=== PATIENT | female | born 1980 | race Caucasian/White ===

== ENCOUNTER → 2017-09-22 | Outpatient (CLI) | payer OTHER ==
--- NOTE | 2017-09-22 14:45 | XR ---
Left foot HISTORY: Trauma and pain 3 views of the left foot Bone mineralization, joint spaces and alignment are maintained. Digits are flexed. There is a plantar calcaneal spur. There is spurring at the tibiotalar joint. Flattening of the distal third metatarsal head appears chronic, secondary osteophytic change suspected. Small ossific densities about the ankl e appear well-corticated and not felt likely to be acute. Soft tissue swelling is noted. IMPRESSION: No acute fracture or dislocation is evident.
== END | disposition home or self-care (01) ==
LOC: RADXRMAIN 11:21
PROVIDERS: ATTEND Family Medicine
DX: Z09 Encounter for follow-up examination after completed treatment for conditions other than malignant neoplasm (principal); Z87.311 Personal history of (healed) other pathological fracture

== ENCOUNTER → 2017-11-12 | Outpatient (CLI) | payer OTHER ==
[2017-11-13 14:49] LABS: Alt. alternata IgE Class CLASS 0; Alternaria alternata IgE <0.35 kU/L (<0.35); Asperg. fumagatus IgE <0.35 kU/L (<0.35); Asperg. fumagatus IgE Class CLASS 0; Candida albicans IgE Class CLASS 0; Clad herbarum IgE <0.35 kU/L (<0.35); Mucor racemosus IgE 0.48 kU/L (<0.35); Mucor racemosus IgE Class CLASS I; Penicillium chrysogenum IgE <0.35 kU/L (<0.35); Penicillium chrysogenum IgE Cl CLASS 0
== END | disposition home or self-care (01) ==
LOC: LABWHC1 14:19
PROVIDERS: ATTEND Family Medicine
DX: J30.89 Other allergic rhinitis (principal)
CPT/HCPCS: 36415; 86003

== ENCOUNTER → 2017-12-01 | Outpatient (CLI) | payer OTHER ==
[2017-12-01 16:50] LABS: Blood Urea Nitrogen 9 mg/dL (7-17)
--- NOTE | 2017-12-01 21:05 | CT ---
EXAMINATION TYPE: CT abdomen pelvis w con DATE OF EXAM: 12/01/2017 COMPARISON: NONE HISTORY: Ventral hernia CT DLP: 2380 mGycm CONTRAST: CT scan of the abdomen and pelvis is performed with Oral Contrast and with IV Contrast, patient injec jam with 100 mL of Isovue 300. FINDINGS: LUNG BASES-: No visible nodule. No infiltrate. LIVER/GB: There is moderate fatty hepatic infiltration and hepatomegaly. Cholecystectomy clips are in place. No space occupying hepatic lesion. Biliary tree is of normal caliber. PANCREAS: No inflammation. No distinct mass. SPLEEN: Splenomegaly measuring 13 cm craniocaudal dimension.. No lesion seen. ADRENALS: No nodule. No thickening. KIDNEYS/BLADDER: No hydronephrosis. No nephrolithiasis. No distinct renal mass. Urinary bladder g rossly unremarkable. BOWEL: Normal appendix. Normal bowel caliber. No inflammation. GENITAL ORGANS: No gross abnormality. LYMPH NODES: 1.1 cm right epicardial lymph node. Periportal adenopathy with lymph node mass measuring 2.7 x 1.4 cm. Para-aortic adenopathy measuring 1.3 cm anteriorly at the level of the renal veins. Ri ght inguinal lymph node measuring 1.3 cm. AORTA: No significant abnormality. OSSEOUS STRUCTURES: No significant abnormality is seen. OTHER: No ventral hernia identified.. IMPRESSION: 1. Nonspecific adenopathy. 2. Mild splenomegaly. 3. Hepatomegaly with underlying fatty hepatic infiltration.
== END | disposition home or self-care (01) ==
LOC: RADCTMAIN 16:22
PROVIDERS: ATTEND Surgery
DX: K76.0 Fatty (change of) liver, not elsewhere classified (principal); R16.2 Hepatomegaly with splenomegaly, not elsewhere classified
CPT/HCPCS: 82565; 84520; 74177; 36415; Q9967

== ENCOUNTER → 2017-12-09 | Day surgery (SDC) | payer OTHER ==
[2017-12-08 10:11] VITALS: BMI 46.5
[~2017-12-09] MED LIST: LACTATED RINGERS 1,000 ML IV SCH; LIDOCAINE 1% 20 ML VIAL (10MG/ML) FOR IV START INTRADERMA PRN; LIDOCAINE 1% INJ 10MG/ML (20 ML MDV) ONE; MIDAZOLAM 2 MG/2 ML VIAL IV PRN; PROPOFOL 10 MG/ML 20 ML VIAL IV ONE; SCOPOLAMINE 1.5MG/72HR PATCH TRANSDERM ONE; fentaNYL (PF) 50 MCG/ML 2 ML AMP ONE
[2017-12-09 11:02] VITALS: TEMP 97.1
[2017-12-09 11:05] LABS: Glucose,Whole Blood 110 mg/dL (75-99)
--- NOTE | 2017-12-09 11:18 | P.GSHP ---
History of Present Illness H&P Date: 12/09/17 Chief Complaint: GERD This a 36-year-old female who presents today for EGD. She's had issues with GERD. He is morbidly obese BMI 47. Past Medical History Past Medical History: Asthma, Chest Pain / Angina, Diabetes Mellitus, Fibromyalgia, GERD/Reflux, Hypertension, Osteoarthritis (OA), Pneumonia, Rheumatoid Arthritis (RA), Sleep Apnea/CPAP/BIPAP Additional Past Medical History / Comment(s): IBS,hiatal hernia,low heart rate, migraines, had "black outs" couple 2014,no cpap,hx cervical cancer, rhabdomyolysis History of Any Multi-Drug Resistant Organisms: None Reported Past Surgical History: Section, Cholecystectomy, Tubal Ligation, Uterine Ablation Additional Past Surgical History / Comment(s): d & c,c sect x3,cervix removed Past Anesthesia/Blood Transfusion Reactions: Motion Sickness, Postoperative Nausea & Vomiting (PONV) Smoking Status: Current some day smoker - Past Family History Mother Family Medical History: No Reported History Medications and Allergies Home Medications Medication Instructions Recorded Confirmed Type Omeprazole [PriLOSEC] 20 mg PO BID 12/26/13 12/08/17 History Lisinopril [Prinivil] 10 mg PO QAM 02/13/16 12/08/17 History glipiZIDE [Glucotrol] 5 mg PO AC-BID 02/13/16 12/09/17 History Beclomethasone Dipropionate [Qvar 2 puff INHALATION BID PRN 12/08/17 12/08/17 History 80 mcg] Dicyclomine HCl 10 mg PO QID 12/08/17 12/08/17 History FLUoxetine HCL [PROzac] 40 mg PO QAM 12/08/17 12/09/17 History Fluticasone Propionate [Flovent 2 puff INHALATION QID PRN 12/08/17 12/08/17 History Hfa 220MCG] Ibuprofen 600 mg PO BID 12/08/17 12/08/17 History [place] Carbonate 300 mg PO BID 12/08/17 12/08/17 History Ondansetron [Zofran] 4 mg PO Q8HR PRN 12/08/17 12/09/17 History Pregabalin [Lyrica] 75 mg PO BID 12/08/17 12/08/17 History Scopolamine 1.5MG/72Hr Patch 1 patch TRANSDERM Q72H 12/08/17 12/08/17 History [Transderm-Scop 1.5MG/72Hr Patch] oxyCODONE HCL/ACETAMINOPHEN 1 tab PO Q6HR PRN 12/08/17 12/09/17 History [Percocet 10-325 mg] Allergies Allergy/AdvReac Type Severity Reaction Status Date / Time trimethobenzamide HCl Allergy Dyspnea, Verified 12/09/17 10:54 [From [facility]] tongue swelled, hives adhesive tape Allergy tears skin Uncoded 12/09/17 10:54 Surgical - Exam Vital Signs Temp Pulse Resp BP Pulse Ox 97.1 F L 52 L 18 136/87 96 12/09/17 11:01 12/09/17 11:01 12/09/17 11:01 12/09/17 11:01 12/09/17 11:01 - General well developed, no distress - Eyes PERRL - ENT normal pinna - Neck no masses - Respiratory normal expansion - Cardiovascular Rhythm: regular - Abdomen Abdomen: soft, non tender Results - Labs Abnormal Lab Results - Last 24 Hours (Table) 12/09/17 Range/Units 11:03 POC Glucose (mg/dL) 110 H (75-99) mg/dL Assessment and Plan Assessment: GERD. We'll perform EGD.
[2017-12-09 11:31] VITALS: BP 137/65; PULSE 55; RESP 16
--- NOTE | 2017-12-09 11:32 | P.OP ---
Date of Procedure: 12/09/17 Preoperative Diagnosis: GERD Postoperative Diagnosis: Antral gastritis No evidence of hiatal hernia Procedure(s) Performed: EGD Anesthesia: MAC Surgeon: Alonso Kang Pathology: other (Antrum) Condition: stable Disposition: PACU Description of Procedure: The patient's placed on the endoscopy table lateral position. She received IV sedation. The gastroscope placed oropharynx passed in the esophagus and stomach. Scope then placed through the pylorus. The first and second portion of the duodenum appeared normal. Scope was then brought back the antrum and this was mildly inflamed. A biopsies was performed. The scope was then retroflexed and remainder of the stomach appeared Normal. There is no evidence of a hiatal hernia. The GE junction was at 40 cm. The distal esophagus Appeared normal. The proximal esophagus. Normal. Scope was withdrawn for patient.
== END | disposition home or self-care (01) ==
LOC: ORWHC2ENDO 09:36
PROVIDERS: ATTEND Surgery
DX: K29.50 Unspecified chronic gastritis without bleeding (principal); K21.9 Gastro-esophageal reflux disease without esophagitis; K58.9 Irritable bowel syndrome, unspecified; M79.7 Fibromyalgia; M06.9 Rheumatoid arthritis, unspecified; J45.909 Unspecified asthma, uncomplicated; I10 Essential (primary) hypertension; F17.200 Nicotine dependence, unspecified, uncomplicated; M19.90 Unspecified osteoarthritis, unspecified site; E66.01 Morbid (severe) obesity due to excess calories; E11.9 Type 2 diabetes mellitus without complications; Z68.42 Body mass index [BMI] 45.0-49.9, adult; Z79.84 Long term (current) use of oral hypoglycemic drugs; Z88.8 Allergy status to other drugs, medicaments and biological substances; Z91.048 Other nonmedicinal substance allergy status; Z79.1 Long term (current) use of non-steroidal anti-inflammatories (NSAID); Z79.899 Other long term (current) drug therapy; Z90.49 Acquired absence of other specified parts of digestive tract
CPT/HCPCS: 81025; 88305; 43239; J2001; J3010; J2704

== ENCOUNTER 2018-01-06 08:58 | Emergency (ER) | payer OTHER ==
[2018-01-06 09:27] VITALS: BP 152/67; PULSE 50; RESP 18; TEMP 97.9
--- NOTE | 2018-01-06 09:28 | XR ---
EXAMINATION TYPE: XR foot limited LT DATE OF EXAM: 01/06/2018 COMPARISON: NONE HISTORY: Pain TECHNIQUE: Three views are submitted. FINDINGS: The osseous structures are intact. There is no acute fracture or dislocation. Calcaneal spur not ed. Flattening of the head of the third metatarsal appears chronic be associated with previous trauma or chronic osteonecrosis. Arthropathy of the first. IMPRESSION: 1. No acute fracture or dislocation. If symptoms persist, follow-up exam in 7 to 10 days could be ob tained. 2. Chronic finding involving the head of the third metatarsal as discussed above.
--- NOTE | 2018-01-06 09:36 | ED ---
General Adult HPI - General Chief complaint: Skin/Abscess/Foreign Body Stated complaint: INFECTION ON KEFT FIIT Time Seen by Provider: 01/06/18 09:05 Source: patient, RN notes reviewed Mode of arrival: ambulatory Limitations: no limitations - History of Present Illness Initial comments: 37-year-old female presenting to the emergency room today with chief complaint of an injury to left foot. She admits that 2 days ago she scraped the top of the foot on a nail. She states that her tetanus is up-to-date. She's noticed increased redness and some swelling and pain today. Patient did bring her daughter here to the emergency room to be seen while she was being registered she decided to check herself in for this injury to left foot. She denies any other complaints or symptoms. - Related Data Home Medications Medication Instructions Recorded Confirmed Omeprazole [PriLOSEC] 20 mg PO BID 12/26/13 12/08/17 Lisinopril [Prinivil] 10 mg PO QAM 02/13/16 12/08/17 glipiZIDE [Glucotrol] 5 mg PO AC-BID 02/13/16 12/09/17 Beclomethasone Dipropionate [Qvar 2 puff INHALATION BID PRN 12/08/17 12/08/17 80 mcg] Dicyclomine HCl 10 mg PO QID 12/08/17 12/08/17 FLUoxetine HCL [PROzac] 40 mg PO QAM 12/08/17 12/09/17 Fluticasone Propionate [Flovent 2 puff INHALATION QID PRN 12/08/17 12/08/17 Hfa 220MCG] Ibuprofen 600 mg PO BID 12/08/17 12/08/17 [place] Carbonate 300 mg PO BID 12/08/17 12/08/17 Ondansetron [Zofran] 4 mg PO Q8HR PRN 12/08/17 12/09/17 Pregabalin [Lyrica] 75 mg PO BID 12/08/17 12/08/17 Scopolamine 1.5MG/72Hr Patch 1 patch TRANSDERM Q72H 12/08/17 12/08/17 [Transderm-Scop 1.5MG/72Hr Patch] oxyCODONE HCL/ACETAMINOPHEN 1 tab PO Q6HR PRN 12/08/17 12/09/17 [Percocet 10-325 mg] Previous Rx's Medication Instructions Recorded Cephalexin [Keflex] 500 mg PO Q12HR 10 Days cap 01/06/18 Allergies Allergy/AdvReac Type Severity Reaction Status Date / Time trimethobenzamide HCl Allergy Dyspnea, Verified 01/06/18 09:27 [From [facility]] tongue swelled, hives adhesive tape Allergy tears skin Uncoded 01/06/18 09:27 Review of Systems ROS Statement: Those systems with pertinent positive or pertinent negative responses have been documented in the HPI. ROS Other: All systems not noted in ROS Statement are negative. Past Medical History Past Medical History: Asthma, Chest Pain / Angina, Diabetes Mellitus, Fibromyalgia, GERD/Reflux, Hypertension, Osteoarthritis (OA), Pneumonia, Rheumatoid Arthritis (RA), Sleep Apnea/CPAP/BIPAP Additional Past Medical History / Comment(s): migraines, had "black outs" couple months ago, vomting and diarrhea, History of Any Multi-Drug Resistant Organisms: None Reported Past Surgical History: Section, Cholecystectomy, Tubal Ligation, Uterine Ablation Additional Past Surgical History / Comment(s): d & c Past Anesthesia/Blood Transfusion Reactions: Motion Sickness, Postoperative Nausea & Vomiting (PONV) Past Psychological History: Anxiety, Bipolar, Depression, Panic Disorder Smoking Status: Former smoker Past Alcohol Use History: None Reported Past Drug Use History: Marijuana General Exam - General Exam Comments Initial Comments: General: The patient is awake and alert, in no distress, and does not appear acutely ill. Neck: The neck is supple, there is no tenderness or JVD. Cardiovascular: There is a regular rate and rhythm. No murmur, rub or gallop is appreciated. Respiratory: Lungs are clear to auscultation, respirations are non-labored, breath sounds are equal. No wheezes, stridor, rales, or rhonchi. Musculoskeletal: Patient has full range of motion. Cap refill less than 2 seconds. Pedal pulse 2+. Sensation intact. Neurological: A&O x 3. CN II-XII intact, There are no obvious motor or sensory deficits. Coordination appears grossly intact. Speech is normal. Skin: Laceration site to the anterior aspect of the left foot of the skin superficially over the fourth metatarsal area. Full length measures approximately 2 cm. There is mild local redness surrounding. No lymphangitic streaking. Psychiatric: Normal mood and affect. Limitations: no limitations Course Vital Signs 01/06/18 09:25 Temperature 97.9 F Pulse Rate 50 L Respiratory 18 Rate Blood Pressure 152/67 O2 Sat by Pulse 96 Oximetry Medical Decision Making - Medical Decision Making Patient's x-ray reviewed and is negative for any acute abnormality. Patient's tetanus is up-to-date will be started on antibiotics cover for infection. Advised to watch the area return if symptoms increase or worsen. Disposition Clinical Impression: Cellulitis Disposition: HOME SELF-CARE Condition: Good Instructions: Cellulitis (ED) Additional Instructions: Please use medication as discussed. Please follow-up with family doctor in the next 2 days of symptoms have not improved. Please return to emergency room if the symptoms increase or worsen or for any other concerns. Prescriptions: Cephalexin [Keflex] 500 mg PO Q12HR 10 Days cap Is patient prescribed a controlled substance at d/c from ED?: No Referrals: Jonah Johnson MD [Primary Care Provider] - 1-2 days Time of Disposition: 09:33
== END 2018-01-06 10:18 | disposition home or self-care (01) ==
LOC: EC 08:58
DX: L03.116 Cellulitis of left lower limb (principal); J45.909 Unspecified asthma, uncomplicated; E11.9 Type 2 diabetes mellitus without complications; M79.7 Fibromyalgia; K21.9 Gastro-esophageal reflux disease without esophagitis; I10 Essential (primary) hypertension; M19.90 Unspecified osteoarthritis, unspecified site; M06.9 Rheumatoid arthritis, unspecified; G47.30 Sleep apnea, unspecified; Z99.89 Dependence on other enabling machines and devices; F31.9 Bipolar disorder, unspecified; F41.0 Panic disorder [episodic paroxysmal anxiety]; Z87.891 Personal history of nicotine dependence; Z79.84 Long term (current) use of oral hypoglycemic drugs; Z79.1 Long term (current) use of non-steroidal anti-inflammatories (NSAID); Z79.899 Other long term (current) drug therapy; Z88.8 Allergy status to other drugs, medicaments and biological substances; Z91.048 Other nonmedicinal substance allergy status
CPT/HCPCS: 99283

== ENCOUNTER → 2019-04-06 | Outpatient (CLI) | payer OTHER ==
[2019-04-06 18:08] LABS: HIV 1 AB Non-Reactive (Non-Reactive); HIV AB P24 Non-Reactive (Non-Reactive); HIV P24 AG Non-Reactive (Non-Reactive)
== END | disposition home or self-care (01) ==
LOC: LABWHC1 09:33
PROVIDERS: ATTEND Internal Medicine Infectious Disease
DX: Z20.6 Contact with and (suspected) exposure to human immunodeficiency virus [HIV] (principal)
CPT/HCPCS: 36415; 87390

== ENCOUNTER → 2019-09-02 | Outpatient (CLI) | payer OTHER ==
[2019-09-02 19:02] LABS: T4, Free (Free Thyroxine) 1.3 ng/dL (0.80-1.80)
[2019-09-02 20:29] LABS: Hemoglobin A1C 8.8 % (4.0-6.0)
== END | disposition home or self-care (01) ==
LOC: LABWHC1 12:06
PROVIDERS: ATTEND Family Medicine
DX: I10 Essential (primary) hypertension (principal); E11.9 Type 2 diabetes mellitus without complications
CPT/HCPCS: 36415; 83036; 84439; 84443; 84481

== ENCOUNTER 2020-03-13 06:36 | Emergency (ER) | payer OTHER ==
[2020-03-13] MEDS ORDERED: ONDANSETRON 4 MG/2 ML VIAL IVP STA (06:49)
[2020-03-13] MEDS ORDERED: KETOROLAC 30 MG/ML 1 ML VIAL IVP STA (06:49)
[2020-03-13] MEDS ORDERED: MORPHINE SULFATE 4 MG/ML SYRINGE IV STA (06:49)
[2020-03-13] MEDS ORDERED: SODIUM CHLORIDE 0.9% 1,000 ML IV STA ×2 (06:49)
[2020-03-13] MEDS ORDERED: PANTOPRAZOLE 40 MG/10 ML VIAL IVP STA (06:49)
[2020-03-13 06:51] VITALS: RESP 18; TEMP 98.3
--- NOTE | 2020-03-13 06:51 | ED ---
Abdominal Pain HPI - General Source: patient, RN notes reviewed, old records reviewed Mode of arrival: ambulatory Limitations: no limitations <Mei Mcdonough - Last Filed: 03/13/20 21:46> <Lea Lagso - Last Filed: 03/15/20 00:53> - General Chief Complaint: Abdominal Pain Stated Complaint: Abd pain, vomiting Time Seen by Provider: 03/13/20 06:43 - History of Present Illness Initial Comments: Patient is a 39-year-old female who presents the emergency department today for evaluation for concern for centralized abdominal pain. She reports symptoms started yesterday evening after eating a small pork chop and hot dog. She states that seemed like nothing sits well in her stomach. She reports that around 3:00 this morning she woke up with severe pain and nausea, and has swelling on left side of abdomen. She states she vomited all food she's ate for the past 2 days as it is not digesting. She did report she had a bowel movement today which was normal and formed. Denies any bloody stools. Denies a ny fevers or chills. Denies any chest pain shortness of breath. She does report the pain seems to be central midabdomen with some radiation towards her back. (Mei Mcdonough) - Related Data Home Medications Medication Instructions Recorded Confirmed Lisinopril [Prinivil] 10 mg PO QAM 02/13/16 01/06/18 Beclomethasone Dipropionate [Qvar 2 puff INHALATION BID PRN 12/08/17 01/06/18 80 mcg] Dicyclomine HCl 10 mg PO QID 12/08/17 01/06/18 Ibuprofen 600 mg PO BID 12/08/17 01/06/18 Pregabalin [Lyrica] 75 mg PO BID 12/08/17 01/06/18 Scopolamine 1.5MG/72Hr Patch 1 patch TRANSDERM Q72H 12/08/17 01/06/18 [Transderm-Scop 1.5MG/72Hr Patch] oxyCODONE HCL/ACETAMINOPHEN 1 tab PO Q6HR PRN 12/08/17 01/06/18 [Percocet 10-325 mg] Losartan [Cozaar] 50 mg PO DAILY 01/06/18 01/06/18 Nitrofurantoin Monohyd/M-Cryst 100 mg PO Q12HR 01/06/18 01/06/18 [Macrobid] Previous Rx's Medication Instructions Recorded Cephalexin [Keflex] 500 mg PO Q12HR 10 Days cap 01/06/18 Omeprazole [PriLOSEC] 40 mg PO DAILY #30 cap 03/13/20 Ondansetron [Zofran] 4 mg PO Q8HR PRN #8 tab 03/13/20 Allergies Allergy/AdvReac Type Severity Reaction Status Date / Time latex Allergy Itching Verified 01/06/18 10:04 trimethobenzamide HCl Allergy Dyspnea, Verified 01/06/18 09:27 [From [facility]] tongue swelled, hives adhesive tape Allergy tears skin Uncoded 01/06/18 09:27 Review of Systems ROS Other: All systems not noted in ROS Statement are negative. <Mei Mcdonough - Last Filed: 03/13/20 21:46> ROS Other: All systems not noted in ROS Statement are negative. <Lea Lagos - Last Filed: 03/15/20 00:53> ROS Statement: Those systems with pertinent positive or pertinent negative responses have been documented in the HPI. Past Medical History Past Medical History: Asthma, Chest Pain / Angina, Diabetes Mellitus, Fibromyalgia, GERD/Reflux, Hypertension, Osteoarthritis (OA), Pneumonia, Rh eumatoid Arthritis (RA), Sleep Apnea/CPAP/BIPAP Additional Past Medical History / Comment(s): migraines, had "black outs" couple months ago, vomting and diarrhea, History of Any Multi-Drug Resistant Organisms: None Reported Past Surgical History: Section, Cholecystectomy, Tubal Ligation, Uterine Ablation Additional Past Surgical History / Comment(s): d & c Past Anesthesia/Blood Transfusion Reactions: Motion Sickness, Postoperative Nausea & Vomiting (PONV) Past Psychological History: Anxiety, Bipolar, Depression, Panic Disorder Smoking Status: Current every day smoker Past Alcohol Use History: None Reported Past Drug Use History: Marijuana <Mei Mcdonough - Last Filed: 03/13/20 21:46> General Exam Limitations: no limitations General appearance: alert, in no apparent distress Head exam: Present: atraumatic, normocephalic, normal inspection Eye exam: Present: normal appearance, PERRL, EOMI. Absent: scleral icterus, conjunctival injection, periorbital swelling ENT exam: Present: normal exam, mucous membranes moist Neck exam: Present: normal inspection. Absent: tenderness, meningismus, lymphadenopathy Respiratory exam: Present: normal lung sounds bilaterally. Absent: respiratory distress, wheezes, rales, rhonchi, stridor Cardiovascular Exam: Present: regular rate, normal rhythm, normal heart sounds. Absent: systolic murmur, diastolic murmur, rubs, gallop, clicks GI/Abdominal exam: Present: soft, normal bowel sounds. Absent: distended, tenderness, guarding, rebound, rigid Extremities exam: Present: normal inspection, full ROM, normal capillary refill. Absent: tenderness, pedal edema, joint swelling, calf tenderness Back exam: Present: normal inspection Neurological exam: Present: alert Psychiatric exam: Present: normal affect, normal mood Skin exam: Present: warm, dry, intact, normal color. Absent: rash <Mei Mcdonough - Last Filed: 03/13/20 21:46> - General Exam Comments Initial Comments: 39 year old female, no distress. (Mei Mcdonough) Course <Mei Mcdonough - Last Filed: 03/13/20 21:46> Vital Signs 03/13/20 03/13/20 06:41 08:59 Temperature 98.3 F 98.3 F Pulse Rate 58 L 67 Respiratory 18 18 Rate Blood Pressure 156/87 150/91 O2 Sat by Pulse 95 98 Oximetry - Reevaluation(s) Reevaluation #1: 03/13/20 07:16 I discussed Patient elevated blood sugar 300. She states that she is a known diabetic. She takes glipizide and Ozembic. (Mei Mcdonough) Medical Decision Making - Lab Data Result diagrams: 03/13/20 06:54 03/13/20 06:54 - Radiology Data Radiology results: report reviewed <Mei Mcdonough - Last Filed: 03/13/20 21:46> - Lab Data Result diagrams: 03/13/20 06:54 03/13/20 06:54 <Lea Lagos - Last Filed: 03/15/20 00:53> - Medical Decision Making 39 year old female presents today for nausea, vomiting and left abdominal pain. Patient labs were reviewed and unremarkable. Due to persistent pain, CT completed. Patient CT shows no acute abnormality. She discused frequent belching and discussed possible upper endoscopy adn testing for Hpylori. Discussed close PCP follow up. Discussed with Dr. Johnson. (Mei Mcdonough) I was available for consultation in the emergency department. The history and physical exam were done by the midlevel provider. I was consulted for this patients care. I reviewed the case with the midlevel provider and based on their presentation of the patient, I agree with the assessment, medical decision making and plan of care as documented. Chart was dictated using Vigo dictation software. Attempts were made to correct any dictation errors however some typographical errors may persist. Patient was seen during a national state of emergency due to the Covid-19 pandemic. (Lea Lagos) - Lab Data Lab Results 03/13/20 03/13/20 03/13/20 Range/Units 06:54 06:54 06:54 WBC 12.0 H (3.8-10.6) k/uL RBC 4.89 (3.80-5.40) m/uL Hgb 15.3 (11.4-16.0) gm/dL Hct 46.2 H (34.0-46.0) % MCV 94.6 (80.0-100.0) fL MCH 31.3 (25.0-35.0) pg MCHC 33.1 (31.0-37.0) g/dL RDW 12.6 (11.5-15.5) % Plt Count 304 (150-450) k/uL Neutrophils % 64 % Lymphocytes % 26 % Monocytes % 5 % Eosinophils % 3 % Basophils % 1 % Neutrophils # 7.7 (1.3-7.7) k/uL Lymphocytes # 3.1 (1.0-4.8) k/uL Monocytes # 0.6 (0-1.0) k/uL Eosinophils # 0.4 (0-0.7) k/uL Basophils # 0.1 (0-0.2) k/uL PT 9.5 (9.0-12.0) sec INR 0.9 (<1.2) APTT 23.7 (22.0-30.0) sec Sodium 136 L (137-145) mmol/L Potassium 3.8 (3.5-5.1) mmol/L Chloride 101 (98-107) mmol/L Carbon Dioxide 26 (22-30) mmol/L Anion Gap 9 mmol/L BUN 7 (7-17) mg/dL Creatinine 0.60 (0.52-1.04) mg/dL Est GFR (CKD-EPI)AfAm >90 (>60 ml/min/1.73 sqM) Est GFR (CKD-EPI)NonAf >90 (>60 ml/min/1.73 sqM) Glucose 300 H (74-99) mg/dL Plasma Lactic Acid Darion (0.7-2.0) mmol/L Calcium 9.6 (8.4-10.2) mg/dL Total Bilirubin 0.4 (0.2-1.3) mg/dL AST 46 H (14-36) U/L ALT 59 H (4-34) U/L Alkaline Phosphatase 78 (38-126) U/L Total Protein 7.1 (6.3-8.2) g/dL Albumin 4.0 (3.5-5.0) g/dL Amylase 40 (30-110) U/L Lipase 151 (23-300) U/L Urine Color Urine Appearance (Clear) Urine pH (5.0-8.0) Ur Specific [place] (1.001-1.035) Urine Protein (Negative) Urine Glucose (UA) (Negative) Urine Ketones (Negative) Urine Blood (Negative) Urine Nitrite (Negative) Urine Bilirubin (Negative) Urine Urobilinogen (<2.0) mg/dL Ur Leukocyte Esterase (Negative) 03/13/20 03/13/20 Range/Units 06:54 08:23 WBC (3.8-10.6) k/uL RBC (3.80-5.40) m/uL Hgb (11.4-16.0) gm/dL Hct (34.0-46.0) % MCV (80.0-100.0) fL MCH (25.0-35.0) pg MCHC (31.0-37.0) g/dL RDW (11.5-15.5) % Plt Count (150-450) k/uL Neutrophils % % Lymphocytes % % Monocytes % % Eosinophils % % Basophils % % Neutrophils # (1.3-7.7) k/uL Lymphocytes # (1.0-4.8) k/uL Monocytes # (0-1.0) k/uL Eosinophils # (0-0.7) k/uL Basophils # (0-0.2) k/uL PT (9.0-12.0) sec INR (<1.2) APTT (22.0-30.0) sec Sodium (137-145) mmol/L Potassium (3.5-5.1) mmol/L Chloride (98-107) mmol/L Carbon Dioxide (22-30) mmol/L Anion Gap mmol/L BUN (7-17) mg/dL Creatinine (0.52-1.04) mg/dL Est GFR (CKD-EPI)AfAm (>60 ml/min/1.73 sqM) Est GFR (CKD-EPI)NonAf (>60 ml/min/1.73 sqM) Glucose (74-99) mg/dL Plasma Lactic Acid [place] 1.9 (0.7-2.0) mmol/L Calcium (8.4-10.2) mg/dL Total Bilirubin (0.2-1.3) mg/dL AST (14-36) U/L ALT (4-34) U/L Alkaline Phosphatase (38-126) U/L Total Protein (6.3-8.2) g/dL Albumin (3.5-5.0) g/dL Amylase (30-110) U/L Lipase (23-300) U/L Urine Color Yellow Urine Appearance Clear (Clear) Urine pH 6.0 (5.0-8.0) Ur Specific [place] 1.028 (1.001-1.035) Urine Protein Trace H (Negative) Urine Glucose (UA) 4+ H (Negative) Urine Ketones Trace H (Negative) Urine Blood Negative (Negative) Urine Nitrite Negative (Negative) Urine Bilirubin Negative (Negative) Urine Urobilinogen <2.0 (<2.0) mg/dL Ur Leukocyte Esterase Negative (Negative) - Radiology Data Negative CT abdomen and pelvis. KUB shows normal bowel gas pattern. (Mei Mcdonough) Disposition Is patient prescribed a controlled substance at d/c from ED?: No Time of Disposition: 10:03 <Mei Mcdonough - Last Filed: 03/13/20 21:46> <Lea Lagos - Last Filed: 03/15/20 00:53> Clinical Impression: Acute vomiting, Abdominal pain Disposition: HOME SELF-CARE Condition: Good Additional Instructions: Pt is to follow up with PCP and retunr to ED if any alarming signs or symptoms occur. Prescriptions: Omeprazole [PriLOSEC] 40 mg PO DAILY #30 cap Ondansetron [Zofran] 4 mg PO Q8HR PRN #8 tab PRN Reason: Nausea And Vomiting Referrals: Jonah Johnson MD [Primary Care Provider] - 1-2 days
[2020-03-13 07:05] LABS: Basophils # (A) 0.1 k/uL (0-0.2); Basophils % (A) 1 %; Eosinophils # (A) 0.4 k/uL (0-0.7); Eosinophils % (A) 3 %; HCT 46.2 % (34.0-46.0); HGB 15.3 gm/dL (11.4-16.0); Lymphocytes # (A) 3.1 k/uL (1.0-4.8); Lymphocytes % (A) 26 %; MCH 31.3 pg (25.0-35.0); MCHC 33.1 g/dL (31.0-37.0); MCV 94.6 fL (80.0-100.0); Mean Platelet Volume 8.1; Monocytes # (A) 0.6 k/uL (0-1.0); Monocytes % (A) 5 %; Neutrophils # (A) 7.7 k/uL (1.3-7.7); Neutrophils % (A) 64 %; Platelet Count 304 k/uL (150-450); RBC 4.89 m/uL (3.80-5.40); RDW 12.6 % (11.5-15.5)
[2020-03-13 07:13] LABS: ALT 59 U/L (4-34); AST 46 U/L (14-36); African American GFR (CKD) >90 (>60 ml/min/1.73 sqM); Alkaline Phosphatase 78 U/L (38-126); Amylase 40 U/L (30-110); Anion Gap 9 mmol/L; Blood Urea Nitrogen 7 mg/dL (7-17); Calcium 9.6 mg/dL (8.4-10.2); Carbon Dioxide 26 mmol/L (22-30); Chloride 101 mmol/L (98-107); Glucose 300 mg/dL (74-99); Non-African American GFR(CKD) >90 (>60 ml/min/1.73 sqM); Potassium 3.8 mmol/L (3.5-5.1); Sodium 136 mmol/L (137-145); Total Bilirubin 0.4 mg/dL (0.2-1.3); Total Protein 7.1 g/dL (6.3-8.2)
[2020-03-13 07:18] LABS: INR 0.9 (<1.2); Partial Thromboplastin Time 23.7 sec (22.0-30.0); Prothrombin Time 9.5 sec (9.0-12.0)
--- NOTE | 2020-03-13 08:26 | XR ---
EB HISTORY: Abdominal pain, bloating and vomiting Frontal KUB submitted on 2 images and correlated to prior KUB 02/13/2016 Surgical clips again noted in the right upper quadrant. Lung bases are clear. There is no evident pne umoperitoneum or bowel obstruction, some air-filled loops of bowel present in the left lower quadrant , air fluid levels noted without bowel distention. No pathologic calcification evident. Bones are unc hanged. There is a spinal curvature, degenerative disc changes are present. IMPRESSION: Correlate for ileus, enteritis.
[2020-03-13 08:42] LABS: Appearance,Urine Clear (Clear); Bilirubin,Urine Negative (Negative); Blood,Urine Negative (Negative); Color,Urine Yellow; Glucose,Urine (UA) 4+ (Negative); Ketones,Urine Trace (Negative); Leukocyte Esterase,Urine Negative (Negative); Nitrite,Urine Negative (Negative); Protein,Urine Trace (Negative); Specific Gravity,Urine 1.028 (1.001-1.035); Urobilinogen,Urine <2.0 mg/dL (<2.0)
[2020-03-13 09:00] VITALS: BP 150/91; PULSE 67
--- NOTE | 2020-03-13 09:00 | CT ---
EXAMINATION TYPE: CT abdomen pelvis w con DATE OF EXAM: 03/13/2020 HISTORY: LLQ pain CT DLP: 2646.4mGycm Automated Exposure Control for Dose Reduction was Utilized. CONTRAST: CT scan of the abdomen and pelvis is performed without oral but with IV Contrast, patient injected wi th 100 mL of Isovue 300. COMPARISON: CT abdomen and pelvis December 01, 2017. FINDINGS: LUNG BASES: No significant abnormality is appreciated. LIVER/GB: Cardiomegaly with prominent right hepatic lobe redemonstrated. Liver remains markedly hypod ense consistent with diffuse fatty infiltration. Cholecystectomy clips are redemonstrated. PANCREAS: No significant abnormality is seen. SPLEEN: Stable mild splenomegaly at 13.1 cm long axis coronal image 79. ADRENALS: No significant abnormality is seen. KIDNEYS: Symmetric cortical medullary uptake and excretion without hydronephrosis seen bilaterally. P oorly distended bladder BOWEL: Slightly suboptimal evaluation without enteric contrast. Stomach not greatly distended and summer s suboptimally evaluated. No suspicious small or large bowel dilatation. Normal-appearing appendix ex tends posteriorly and medially from base of cecum in the right lower quadrant. Small bowel feces sign and distal ileal loops consistent with delayed passage of ingested material to colonic level. No sig nificant colonic diverticulosis or CT evidence for acute diverticulitis. UTERUS/ADNEXA: Anteverted uterus. Normal size ovaries. No suspicious adnexal lesions. LYMPH NODES: No new or residual greater than 1cm abdominal or pelvic lymph nodes are appreciated. OSSEOUS STRUCTURES: Straightening of spine with moderate disc space narrowing and vacuum disc phenome non L4-L5 level. Mild to moderate multilevel anterior and lateral spurring. OTHER: No significant additional abnormality is seen. IMPRESSION: No significant new or acute finding is seen to account for patient's clinical symptoms.
== END 2020-03-13 10:14 | disposition home or self-care (01) ==
LOC: EC 06:36
DX: R11.2 Nausea with vomiting, unspecified (principal); R10.9 Unspecified abdominal pain; I10 Essential (primary) hypertension; G47.30 Sleep apnea, unspecified; J45.909 Unspecified asthma, uncomplicated; M19.90 Unspecified osteoarthritis, unspecified site; M06.9 Rheumatoid arthritis, unspecified; M79.7 Fibromyalgia; F41.9 Anxiety disorder, unspecified; F17.200 Nicotine dependence, unspecified, uncomplicated; Z79.1 Long term (current) use of non-steroidal anti-inflammatories (NSAID); Z79.899 Other long term (current) drug therapy; Z91.040 Latex allergy status; Z88.8 Allergy status to other drugs, medicaments and biological substances; Z91.048 Other nonmedicinal substance allergy status; Z98.51 Tubal ligation status; Z90.49 Acquired absence of other specified parts of digestive tract; Z99.89 Dependence on other enabling machines and devices
CPT/HCPCS: 36415; 80053; 82150; 83605; 83690; 85025; 85610; 85730; 81003; 74018; 74177; 99285; 96374; 96375 ×3; 96361 ×3; J2270; J2405; J1885; C9113; Q9967

== ENCOUNTER 2020-03-27 11:43 | Emergency (ER) | payer OTHER ==
[2020-03-27 11:51] VITALS: BP 174/90; PULSE 76; RESP 18; TEMP 98.3
[2020-03-27 12:56] LABS: Basophils # (A) 0.1 k/uL (0-0.2); Basophils % (A) 1 %; Eosinophils # (A) 0.3 k/uL (0-0.7); Eosinophils % (A) 2 %; HCT 48.4 % (34.0-46.0); HGB 15.8 gm/dL (11.4-16.0); Lymphocytes # (A) 3.5 k/uL (1.0-4.8); Lymphocytes % (A) 27 %; MCH 30.8 pg (25.0-35.0); MCHC 32.7 g/dL (31.0-37.0); MCV 94.2 fL (80.0-100.0); Mean Platelet Volume 7.6; Monocytes # (A) 0.6 k/uL (0-1.0); Monocytes % (A) 5 %; Neutrophils # (A) 8.2 k/uL (1.3-7.7); Neutrophils % (A) 64 %; Platelet Count 311 k/uL (150-450); RBC 5.13 m/uL (3.80-5.40); RDW 13.1 % (11.5-15.5); WBC 12.8 k/uL (3.8-10.6)
--- NOTE | 2020-03-27 13:19 | XR ---
EXAMINATION TYPE: XR shoulder complete RT DATE OF EXAM: 03/27/2020 CLINICAL HISTORY: pain TECHNIQUE: Three views of the right shoulder are obtained. COMPARISON: None FINDINGS: There is no acute fracture/dislocation evident. The acromioclavicular and glenohumeral lionel int spaces appear within normal limits. The visualized ribs are intact and unremarkable. IMPRESSION: 1. There is no acute fracture or dislocation. ICD 10 NO FRACTURE, INITIAL EVALUATION
--- NOTE | 2020-03-27 13:28 | XR ---
EXAMINATION TYPE: XR elbow complete RT DATE OF EXAM: 03/27/2020 CLINICAL HISTORY: Pain. TECHNIQUE: Frontal, lateral and oblique images of the right elbow are obtained. COMPARISON: None FINDINGS: There is no acute fracture/dislocation evident in the right elbow. No abnormal fat pad si gns are seen. Ngnn-vl-tzfutyif ulnohumeral spurring. The overlying soft tissue appears unremarkable. IMPRESSION: As above.
--- NOTE | 2020-03-27 13:37 | XR ---
EXAMINATION TYPE: XR wrist complete RT DATE OF EXAM: 03/27/2020 CLINICAL HISTORY: pain TECHNIQUE: Frontal, lateral and oblique images of the right wrist are obtained. COMPARISON: None. FINDINGS: There is no acute fracture/dislocation evident. The joint spaces appear within normal limits. The o verlying soft tissue appears unremarkable. IMPRESSION: There is no acute fracture or dislocation seen. ICD 10 NO FRACTURE, INITIAL EVALUATION
[2020-03-27 13:38] LABS: Sodium 135 mmol/L (137-145)
[2020-03-27 13:41] LABS: ALT 68 U/L (4-34); AST 55 U/L (14-36); African American GFR (CKD) >90 (>60 ml/min/1.73 sqM); Albumin 4.4 g/dL (3.5-5.0); Alkaline Phosphatase 84 U/L (38-126); Anion Gap 12 mmol/L; Blood Urea Nitrogen 9 mg/dL (7-17); C Reactive Protein 34.2 mg/L (<10.0); Calcium 9.8 mg/dL (8.4-10.2); Carbon Dioxide 24 mmol/L (22-30); Chloride 99 mmol/L (98-107); Creatine Kinase 71 U/L (30-135); Glucose 229 mg/dL (74-99); Non-African American GFR(CKD) >90 (>60 ml/min/1.73 sqM); Potassium 4.3 mmol/L (3.5-5.1); Total Bilirubin 0.5 mg/dL (0.2-1.3); Total Protein 7.7 g/dL (6.3-8.2)
[2020-03-27 13:49] LABS: Erythrocyte Sedimentation Rate 19 mm/hr (0-20)
--- NOTE | 2020-03-27 14:11 | ED ---
Extremity Problem HPI - General Chief complaint: Extremity Problem,Nontraumatic Stated complaint: Joint pain Right side Source: family Mode of arrival: ambulatory Limitations: no limitations - History of Present Illness Initial comments: Patient is a 39 year old female who presents to the emergency department with reported right upper extremity pain. Patient states that over the past week she has had worsening pain in her elbow and right thumb. She is right-hand dominant. States majority of the pain starts over the lateral aspect of the right thumb and radiates up to her elbow. Pain is worse with movement and better with rest. Denies any swelling, redness or ecchymosis. No trauma. Denies any weakness, numbness or tingling into the hand. Denies any fevers or chills. Denies any shoulder chest pain. No headaches or visual changes. She reports 2 previous diffuse muscle cramping and was found to be in idiopathic rhabdo. This is a concern of hers. Patient went to [facility] this morning however did not have any imaging or lab studies performed. She then went over to an urgent care who referred her to the hospital stating that she would need both of these. No alleviating, precipitating or modifying factors - Related Data Home Medications Medication Instructions Recorded Confirmed Lisinopril [Prinivil] 10 mg PO QAM 02/13/16 01/06/18 Beclomethasone Dipropionate [Qvar 2 puff INHALATION BID PRN 12/08/17 01/06/18 80 mcg] Dicyclomine HCl 10 mg PO QID 12/08/17 01/06/18 Ibuprofen 600 mg PO BID 12/08/17 01/06/18 Pregabalin [Lyrica] 75 mg PO BID 12/08/17 01/06/18 Scopolamine 1.5MG/72Hr Patch 1 patch TRANSDERM Q72H 12/08/17 01/06/18 [Transderm-Scop 1.5MG/72Hr Patch] oxyCODONE HCL/ACETAMINOPHEN 1 tab PO Q6HR PRN 12/08/17 01/06/18 [Percocet 10-325 mg] Losartan [Cozaar] 50 mg PO DAILY 01/06/18 01/06/18 Nitrofurantoin Monohyd/M-Cryst 100 mg PO Q12HR 01/06/18 01/06/18 [Macrobid] Previous Rx's Medication Instructions Recorded Cephalexin [Keflex] 500 mg PO Q12HR 10 Days cap 01/06/18 Omeprazole [PriLOSEC] 40 mg PO DAILY #30 cap 03/13/20 Ondansetron [Zofran] 4 mg PO Q8HR PRN #8 tab 03/13/20 Ibuprofen [Motrin] 600 mg PO Q8HR PRN #30 tab 03/27/20 Allergies Allergy/AdvReac Type Severity Reaction Status Date / Time latex Allergy Itching Verified 01/06/18 10:04 trimethobenzamide HCl Allergy Dyspnea, Verified 01/06/18 09:27 [From Tigan] tongue swelled, hives adhesive tape Allergy tears skin Uncoded 01/06/18 09:27 Review of Systems ROS Statement: Those systems with pertinent positive or pertinent negative responses have been documented in the HPI. ROS Other: All systems not noted in ROS Statement are negative. Past Medical History Past Medical History: Asthma, Chest Pain / Angina, Diabetes Mellitus, Fibromyalgia, GERD/Reflux, Hypertension, Osteoarthritis (OA), Pneumonia, Rheumatoid Arthritis (RA), Sleep Apnea/CPAP/BIPAP Additional Past Medical History / Comment(s): migraines, had "black outs" couple months ago, vomting and diarrhea, History of Any Multi-Drug Resistant Organisms: None Reported Past Surgical History: Section, Cholecystectomy, Tubal Ligation, Uterine Ablation Additional Past Surgical History / Comment(s): d & c Past Anesthesia/Blood Transfusion Reactions: Motion Sickness, Postoperative Nausea & Vomiting (PONV) Past Psychological History: Anxiety, Bipolar, Depression, Panic Disorder Smoking Status: Current every day smoker Past Alcohol Use History: None Reported Past Drug Use History: Marijuana General Exam Limitations: no limitations Course Vital Signs 03/27/20 11:48 Temperature 98.3 F Pulse Rate 76 Respiratory 18 Rate Blood Pressure 174/90 O2 Sat by Pulse 99 Oximetry Medical Decision Making - Medical Decision Making Upon arrival the patient is placed in room 8. A through history and physical exam was performed. Patient is intact sensation, range of motion. She does have tenderness to palpation of the lateral aspect of the thumb. Because this is the patient's third healthcare facility today, laboratory studies and imaging performed. Patient does have a mild elevation white blood cell count of 12.8. Glucose 229. C-reactive protein 34.2. X-ray of the wrist, elbow and shoulder demonstrate no acute fractures. Elbow x-ray does demonstrate mild to moderate ulnohumeral spurring. I discussed diagnosis, differential and treatment options. Recommend follow-up with her primary care physician for evaluation of possible other etiologies of joint pain. Patient will be prescribed Motrin for pain control. I also wrote the patient for a splint for her wrist. Where it as directed. She is also given follow-up information for the orthopedic on-call. Return to the emergency room for any new or worsening symptoms per patient was in agreement with the plan to discharge home to admission - Lab Data Result diagrams: 03/27/20 12:34 03/27/20 12:34 Lab Results 03/27/20 03/27/20 Range/Units 12:34 12:34 WBC 12.8 H (3.8-10.6) k/uL RBC 5.13 (3.80-5.40) m/uL Hgb 15.8 (11.4-16.0) gm/dL Hct 48.4 H (34.0-46.0) % MCV 94.2 (80.0-100.0) fL MCH 30.8 (25.0-35.0) pg MCHC 32.7 (31.0-37.0) g/dL RDW 13.1 (11.5-15.5) % Plt Count 311 (150-450) k/uL Neutrophils % 64 % Lymphocytes % 27 % Monocytes % 5 % Eosinophils % 2 % Basophils % 1 % Neutrophils # 8.2 H (1.3-7.7) k/uL Lymphocytes # 3.5 (1.0-4.8) k/uL Monocytes # 0.6 (0-1.0) k/uL Eosinophils # 0.3 (0-0.7) k/uL Basophils # 0.1 (0-0.2) k/uL ESR 19 (0-20) mm/hr Sodium 135 L (137-145) mmol/L Potassium 4.3 (3.5-5.1) mmol/L Chloride 99 (98-107) mmol/L Carbon Dioxide 24 (22-30) mmol/L Anion Gap 12 mmol/L BUN 9 (7-17) mg/dL Creatinine 0.51 L (0.52-1.04) mg/dL Est GFR (CKD-EPI)AfAm >90 (>60 ml/min/1.73 sqM) Est GFR (CKD-EPI)NonAf >90 (>60 ml/min/1.73 sqM) Glucose 229 H (74-99) mg/dL Calcium 9.8 (8.4-10.2) mg/dL Total Bilirubin 0.5 (0.2-1.3) mg/dL AST 55 H (14-36) U/L ALT 68 H (4-34) U/L Alkaline Phosphatase 84 (38-126) U/L Creatine Kinase 71 (30-135) U/L C-Reactive Protein 34.2 H (<10.0) mg/L Total Protein 7.7 (6.3-8.2) g/dL Albumin 4.4 (3.5-5.0) g/dL Disposition Clinical Impression: De Quervain's tenosynovitis, Elbow pain, right Disposition: HOME SELF-CARE Condition: Stable Instructions (If sedation given, give patient instructions): De Quervain Disease (ED) Additional Instructions: Please follow up with your primary care doctor for further testing. Return to the department for any new or worsening symptoms Prescriptions: Ibuprofen [Motrin] 600 mg PO Q8HR PRN #30 tab PRN Reason: Pain Is patient prescribed a controlled substance at d/c from ED?: No Referrals: Jonah Johnson MD [Primary Care Provider] - 1-2 days Benedicto Santana MD [STAFF PHYSICIAN] - 1-2 days Time of Disposition: 14:11
== END 2020-03-27 14:41 | disposition home or self-care (01) ==
LOC: EC 11:43
DX: M65.4 Radial styloid tenosynovitis [de Quervain] (principal); M25.521 Pain in right elbow; I10 Essential (primary) hypertension; J45.909 Unspecified asthma, uncomplicated; G47.30 Sleep apnea, unspecified; E11.9 Type 2 diabetes mellitus without complications; F17.200 Nicotine dependence, unspecified, uncomplicated; Z79.899 Other long term (current) drug therapy; Z91.040 Latex allergy status; Z88.8 Allergy status to other drugs, medicaments and biological substances; Z91.048 Other nonmedicinal substance allergy status; Z99.89 Dependence on other enabling machines and devices
CPT/HCPCS: 36415; 80053; 82550; 85025; 85652; 86140; 99283

== ENCOUNTER → 2020-04-02 | Outpatient (CLI) | payer OTHER ==
[2020-04-02 14:55] LABS: HCT 43.6 % (34.0-46.0); HGB 14.8 gm/dL (11.4-16.0); MCH 32.2 pg (25.0-35.0); MCHC 34.1 g/dL (31.0-37.0); MCV 94.5 fL (80.0-100.0); Mean Platelet Volume 7.7; Platelet Count 314 k/uL (150-450); RBC 4.61 m/uL (3.80-5.40); WBC 12.9 k/uL (3.8-10.6)
[2020-04-02 19:50] LABS: Phosphorus 3.7 mg/dL (2.4-5.1)
[2020-04-02 19:51] LABS: % Iron Saturation 31.54 (12.00-45.00); African American GFR (CKD) 125.6 (60.0-200.0); Albumin 4.2 g/dL (3.80-4.90); Albumin/Globulin Ratio 1.56 (1.60-3.17); Anion Gap 8.7 mmol/L (4.00-12.00); BUN/Creat Ratio 12.86 Ratio (12.00-20.00); Calcium 9.8 mg/dL (8.7-10.3); Carbon Dioxide 26.3 mmol/L (21.6-31.8); Globulin 2.7 g/dL (1.6-3.3); LDL Cholesterol,Calculated 74.4 mg/dL (0.0-131.0); Magnesium 1.7 mg/dL (1.5-2.4); Non-African American GFR(CKD) 108.4 (60.0-200.0); Potassium 4.4 mmol/L (3.5-5.5); Total Bilirubin 0.4 mg/dL (0.3-1.2); Total Protein 6.9 g/dL (6.2-8.2); VLDL Calculation 61.6 mg/dL (5.00-40.00)
[2020-04-02 20:00] LABS: Ferritin 238.4 ng/mL (10.0-291.0)
[2020-04-02 20:01] LABS: Folate, Serum 7.9 ng/mL
[2020-04-02 21:21] LABS: INR 0.94 (0.90-1.11); Partial Thromboplastin Time 28.3 sec (24.7-29.9); Prothrombin Time 10.1 sec (9.9-11.9)
[2020-04-03 13:11] LABS: Zinc, Serum 70 ug/dL (60-130)
[2020-04-04 06:17] LABS: Vitamin A 37 ug/dL (38-106)
[2020-04-04 07:11] LABS: Vit B1(Thiamine) 51 ug/L (38-122)
== END | disposition home or self-care (01) ==
LOC: LABWHC1 13:17
PROVIDERS: ATTEND Surgery Plastic and Reconstructive Surgery
DX: E21.1 Secondary hyperparathyroidism, not elsewhere classified (principal); E89.1 Postprocedural hypoinsulinemia; D50.8 Other iron deficiency anemias; K90.89 Other intestinal malabsorption; E55.9 Vitamin D deficiency, unspecified; K74.1 Hepatic sclerosis; N19 Unspecified kidney failure; K50.90 Crohn's disease, unspecified, without complications
CPT/HCPCS: 36415; 80053; 80061; 82306; 82525; 82607; 82728; 82746; 83036; 83540; 83550; 83735; 83970; 84100; 84134; 84255; 84425; 84443; 84590; 84630; 85027; 85610; 85730

== ENCOUNTER 2020-04-04 07:22 | Day surgery (SDC) | payer OTHER ==
[2020-03-30 10:30] VITALS: BMI 43.2
--- NOTE | 2020-04-04 04:34 | P.GSHP ---
History of Present Illness H&P Date: 04/04/20 CHIEF COMPLAINT: GERD and change in bowel habits with blood HISTORY OF PRESENT ILLNESS: The patient is a 39-year-old female who presents with gastroesophageal reflux disease and change in bowel habits with blood. Upper and lower endoscopy were offered for further evaluation and management. PAST MEDICAL HISTORY: Please see list. PAST SURGICAL HISTORY: Please see list. MEDICATIONS: Please see list. ALLERGIES: Please see list. SOCIAL HISTORY: No illicit drug use FAMILY HISTORY: No reports of Crohn disease or ulcerative colitis. REVIEW OF ORGAN SYSTEMS: CONSTITUTIONAL: No reports of fevers or chills. PHYSICAL EXAM: VITAL SIGNS: Stable GENERAL: Well-developed pleasant in no acute distress. HEENT: No scleral icterus. Extraocular movements grossly intact. Moist buccal mucosa. NECK: Supple without lymphadenopathy. CHEST: Unlabored respirations. Equal bilateral excursions. CARDIOVASCULAR: Regular rate and rhythm. Distal 2+ pulses. ABDOMEN: Soft, nondistended. MUSCULOSKELETAL: No clubbing, cyanosis, or edema. ASSESSMENT: 1. Gastroesophageal reflux disease 2. Change in bowel habits with blood PLAN: 1. Recommend proceeding with an upper and lower endoscopy Past Medical History Past Medical History: Asthma, Chest Pain / Angina, Diabetes Mellitus, Fibromyalgia, GERD/Reflux, Hypertension, Osteoarthritis (OA), Pneumonia, Rheumatoid Arthritis (RA), Sleep Apnea/CPAP/BIPAP Additional Past Medical History / Comment(s): migraines, had "black outs" couple months ago, vomting and diarrhea, History of Any Multi-Drug Resistant Organisms: None Reported Past Surgical History: Section, Cholecystectomy, Tubal Ligation, Uterine Ablation Additional Past Surgical History / Comment(s): d & c Past Anesthesia/Blood Transfusion Reactions: Motion Sickness, Postoperative Nausea & Vomiting (PONV) Past Psychological History: Anxiety, Bipolar, Depression, Panic Disorder Smoking Status: Current every day smoker Past Alcohol Use History: None Reported Past Drug Use History: Marijuana - Past Family History Mother Family Medical History: No Reported History Father Family Medical History: Cancer Medications and Allergies Home Medications Medication Instructions Recorded Confirmed Type Lisinopril [Prinivil] 10 mg PO HS 02/13/16 03/30/20 History Dicyclomine HCl 10 mg PO QID 12/08/17 03/30/20 History Pregabalin [Lyrica] 150 mg PO BID 12/08/17 03/30/20 History oxyCODONE HCL/ACETAMINOPHEN 1 tab PO Q6HR PRN 12/08/17 03/30/20 History [Percocet 10-325 mg] Omeprazole [PriLOSEC] 40 mg PO DAILY #30 cap 03/13/20 03/30/20 Rx Ondansetron [Zofran] 4 mg PO Q8HR PRN #8 tab 03/13/20 03/30/20 Rx Ibuprofen [Motrin] 600 mg PO Q8HR PRN #30 tab 03/27/20 03/30/20 Rx Insulin Detemir (Levemir) [Levemir] 10 unit SQ QAM 03/30/20 03/30/20 History glipiZIDE [Glucotrol] 5 mg PO AC-BID 03/30/20 03/30/20 History Allergies Allergy/AdvReac Type Severity Reaction Status Date / Time metoclopramide [From Reglan] Allergy high BP Verified 03/30/20 10:43 trimethobenzamide HCl Allergy Dyspnea, Verified 03/30/20 10:42 [From Tigan] tongue swelled, hives adhesive tape Allergy tears skin Uncoded 03/30/20 10:42
[~2020-04-04 07:22] MED LIST changes: -LIDOCAINE 1% 20 ML VIAL (10MG/ML) FOR IV START INTRADERMA PRN; -LIDOCAINE 1% INJ 10MG/ML (20 ML MDV) ONE; -MIDAZOLAM 2 MG/2 ML VIAL IV PRN; -PROPOFOL 10 MG/ML 20 ML VIAL IV ONE; -SCOPOLAMINE 1.5MG/72HR PATCH TRANSDERM ONE; -fentaNYL (PF) 50 MCG/ML 2 ML AMP ONE
[2020-04-04 07:58] VITALS: TEMP 97.2
[2020-04-04 08:09] LABS: Glucose,Whole Blood 282 mg/dL (75-99)
[2020-04-04] MEDS ORDERED: LIDOCAINE 1% INJ 10MG/ML (20 ML MDV) ONE (08:53)
[2020-04-04] MEDS ORDERED: PROPOFOL 10 MG/ML 20 ML VIAL IV ONE (08:53)
--- NOTE | 2020-04-04 09:18 | P.PCN ---
Date of Procedure: 04/04/20 Description of Procedure: PREOPERATIVE DIAGNOSIS: Gastroesophageal reflux disease Morbid obesity Epigastric abdominal pain POSTOPERATIVE DIAGNOSIS: Gastroesophageal reflux disease Morbid obesity Epigastric abdominal pain Chronic gastritis OPERATION: Esophagogastroduodenoscopy with biopsies along antrum. SURGEON: Delores Patel MD ANESTHESIA: MAC. INDICATIONS: The patient is a 45-year-old female who presents with a history of reflux disease. Benefits and risks of the procedure were described. Informed consent was obtained. DESCRIPTION: The patient was brought into the endoscopy suite and laid in the left lateral decubitus position. An Olympus gastroscope was passed along the posterior orop harynx down to the distal esophagus where the squamocolumnar junction was encountered at 36 cm from the incisors. The stomach was entered and no bile reflux was found. Additional findings are listed below. Biopsies with cold forceps were obtained of the antrum. The first through third portion of the duodenum was examined and unremarkable. Retroflexion of the scope confirmed Hill grade 2 lower esophageal valve. The squamocolumnar junction demonstrated LA grade B erosive esophagitis. The stomach was desufflated. The patient tolerated the procedure well. FINDINGS: Squamocolumnar junction 36 cm from the incisors. Diaphragmatic hiatus at 36 cm. Hill grade 4=2 lower esophageal valve. LA grade B erosive esophagitis. No active duodenitis. Chronic gastritis with recent bleed RECOMMENDATIONS: Upper endoscopy as needed.
--- NOTE | 2020-04-04 09:23 | P.PCN ---
Date of Procedure: 04/04/20 Description of Procedure: PREOPERATIVE DIAGNOSIS: Change in bowel habits with rectal bleeding Lower abdominal pain POSTOPERATIVE DIAGNOSIS: Change in bowel habits with rectal bleeding Sigmoid colon polyp Lower abdominal pain OPERATION: Colonoscopy to the cecum, ileocecal valve and appendiceal orifice. Colonoscopy random cold forceps biopsies and polypectomy SURGEON: Delores Patel MD. ANESTHESIA: MAC. INDICATIONS: The patient is a 39-year-old female who presents with change in bowel habits and rectal bleeding. Chills reported were abdominal pain. Benefits and risks were described and informed consent was obtained. DESCRIPTION OF PROCEDURE: The patient had undergone Gatorade, MiraLAX and Dulcolax prep. He had been brought into the operating room and laid in the left lateral decubitus position. After adequate intravenous sedation, the rectum was examined with 2% lidocaine jelly. External hemorrhoids were encountered. The rectal tone was within normal limits. No lesions were palpated in the rectal vault. An Olympus colonoscope was advanced until the cecum, ileocecal valve and appendiceal orifice were clearly viewed. The prep was fair. No scattered diverticulosis was encountered. No colonic polyps were found. Random cold forceps biopsies were obtained throughout the colon to evaluate for microscopic colitis. At 30 cm from the anal verge, a 4 mm polyp in the sigmoid colon was resected using cold forceps. Retroflexion of the scope demonstrated grade 1 internal hemorrhoids without active bleeding or inflammation. The colon was desufflated. The patient had tolerated the procedure well. Withdrawal time was over 6 minutes. FINDINGS: Aronchick preparation quality scale 2 (1-5) Internal hemorrhoids, grade 1 External prolapsed hemorrhoids, grade 2 No arteriovenous malformations. Random cold forceps biopsies were obtained throughout the colon to evaluate for microscopic colitis. At 30 cm from the anal verge, a 4 mm polyp in the sigmoid colon was resected using cold forceps. RECOMMENDATIONS: Lower endoscopy in 5 years, 2024 Plan - Discharge Summary Discharge Rx Participant: No New Discharge Prescriptions: Continue Lisinopril [Prinivil] 10 mg PO HS Pregabalin [Lyrica] 150 mg PO BID Dicyclomine HCl 10 mg PO QID oxyCODONE HCL/ACETAMINOPHEN [Percocet 10-325 mg] 1 tab PO Q6HR PRN PRN Reason: Pain Omeprazole [PriLOSEC] 40 mg PO DAILY #30 cap Ondansetron [Zofran] 4 mg PO Q8HR PRN #8 tab PRN Reason: Nausea And Vomiting Ibuprofen [Motrin] 600 mg PO Q8HR PRN #30 tab PRN Reason: Pain glipiZIDE [Glucotrol] 5 mg PO AC-BID Insulin Detemir (Levemir) [Levemir] 10 unit SQ QAM Discharge Medication List Lisinopril [Prinivil] 10 mg PO HS 02/13/16 [History] Dicyclomine HCl 10 mg PO QID 12/08/17 [History] Pregabalin [Lyrica] 150 mg PO BID 12/08/17 [History] oxyCODONE HCL/ACETAMINOPHEN [Percocet 10-325 mg] 1 tab PO Q6HR PRN 12/08/17 [History] Omeprazole [PriLOSEC] 40 mg PO DAILY #30 cap 03/13/20 [Rx] Ondansetron [Zofran] 4 mg PO Q8HR PRN #8 tab 03/13/20 [Rx] Ibuprofen [Motrin] 600 mg PO Q8HR PRN #30 tab 03/27/20 [Rx] Insulin Detemir (Levemir) [Levemir] 10 unit SQ QAM 03/30/20 [History] glipiZIDE [Glucotrol] 5 mg PO AC-BID 03/30/20 [History] Follow up Appointment(s)/Referral(s): Delores Patel MD [STAFF PHYSICIAN] - 05/01/20 Patient Instructions/Handouts: Gastritis (DC), Colorectal Polyps (IP), Colonoscopy (DC) Activity/Diet/Wound Care/Special Instructions: Baby colonoscopy in 5 years Discharge Disposition: HOME SELF-CARE
[2020-04-04 09:29] VITALS: PULSE 73
[2020-04-04 09:40] VITALS: BP 130/85; RESP 18
[2020-04-04 09:42] LABS: Glucose,Whole Blood 248 mg/dL (75-99)
== END 2020-04-04 10:27 | disposition home or self-care (01) ==
LOC: ORWHC2ENDO 07:22
PROVIDERS: ATTEND Surgery Plastic and Reconstructive Surgery
DX: D12.5 Benign neoplasm of sigmoid colon (principal); K29.51 Unspecified chronic gastritis with bleeding; K64.0 First degree hemorrhoids; K64.1 Second degree hemorrhoids; E66.01 Morbid (severe) obesity due to excess calories; Z68.41 Body mass index [BMI] 40.0-44.9, adult; K21.9 Gastro-esophageal reflux disease without esophagitis; K22.10 Ulcer of esophagus without bleeding; J45.909 Unspecified asthma, uncomplicated; E11.9 Type 2 diabetes mellitus without complications; F17.200 Nicotine dependence, unspecified, uncomplicated; M79.7 Fibromyalgia; I10 Essential (primary) hypertension; M19.90 Unspecified osteoarthritis, unspecified site; Z87.01 Personal history of pneumonia (recurrent); M06.9 Rheumatoid arthritis, unspecified; G47.33 Obstructive sleep apnea (adult) (pediatric); Z99.89 Dependence on other enabling machines and devices; G43.909 Migraine, unspecified, not intractable, without status migrainosus; Z90.49 Acquired absence of other specified parts of digestive tract; Z98.51 Tubal ligation status; Z98.890 Other specified postprocedural states; F41.9 Anxiety disorder, unspecified; F31.9 Bipolar disorder, unspecified; F41.0 Panic disorder [episodic paroxysmal anxiety]; K08.109 Complete loss of teeth, unspecified cause, unspecified class; Z80.9 Family history of malignant neoplasm, unspecified; Z79.1 Long term (current) use of non-steroidal anti-inflammatories (NSAID); Z79.4 Long term (current) use of insulin; Z79.891 Long term (current) use of opiate analgesic; Z79.899 Other long term (current) drug therapy; Z88.8 Allergy status to other drugs, medicaments and biological substances; Z91.09 Other allergy status, other than to drugs and biological substances
CPT/HCPCS: 88305; 45380; 43239; J2001; J2704

== ENCOUNTER → 2020-11-28 | Outpatient (CLI) | payer OTHER ==
[2020-11-28 13:56] LABS: Basophils # (A) 0.1 k/uL (0-0.2); Basophils % (A) 1 %; Eosinophils # (A) 0.2 k/uL (0-0.7); Eosinophils % (A) 2 %; HCT 43.4 % (34.0-46.0); HGB 14.5 gm/dL (11.4-16.0); Lymphocytes # (A) 3.9 k/uL (1.0-4.8); Lymphocytes % (A) 37 %; MCHC 33.5 g/dL (31.0-37.0); MCV 95.4 fL (80.0-100.0); Mean Platelet Volume 7.2; Monocytes # (A) 0.6 k/uL (0-1.0); Monocytes % (A) 5 %; Neutrophils # (A) 5.8 k/uL (1.3-7.7); Neutrophils % (A) 55 %; Platelet Count 268 k/uL (150-450); RBC 4.55 m/uL (3.80-5.40); RDW 12.6 % (11.5-15.5); WBC 10.6 k/uL (3.8-10.6)
[2020-11-28 14:13] LABS: Appearance,Urine Clear (Clear); Bilirubin,Urine Negative (Negative); Blood,Urine Negative (Negative); Color,Urine Yellow; Glucose,Urine (UA) 4+ (Negative); Ketones,Urine Negative (Negative); Leukocyte Esterase,Urine Negative (Negative); Nitrite,Urine Negative (Negative); PH, Urine 5.5 (5.0-8.0); Protein,Urine Trace (Negative); Specific Gravity,Urine 1.029 (1.001-1.035); Urobilinogen,Urine <2.0 mg/dL (<2.0)
[2020-11-28 14:14] LABS: African American GFR (CKD) >90 (>60 ml/min/1.73 sqM); Anion Gap 8 mmol/L; Blood Urea Nitrogen 7 mg/dL (7-17); Calcium 9.4 mg/dL (8.4-10.2); Carbon Dioxide 25 mmol/L (22-30); Chloride 102 mmol/L (98-107); Glucose 216 mg/dL (74-99); Non-African American GFR(CKD) >90 (>60 ml/min/1.73 sqM); Potassium 4.1 mmol/L (3.5-5.1); Sodium 135 mmol/L (137-145)
== END | disposition home or self-care (01) ==
LOC: LABPAT 13:18
PROVIDERS: ATTEND Urology
DX: Z01.818 Encounter for other preprocedural examination (principal); N39.3 Stress incontinence (female) (male); E11.9 Type 2 diabetes mellitus without complications; R35.0 Frequency of micturition
CPT/HCPCS: 36415; 80048; 81003; 85025; 87086

== ENCOUNTER → 2020-12-03 | Outpatient (CLI) | payer OTHER | END | disposition home or self-care (01) | LOC: LABPAT 07:12 | PROVIDERS: ATTEND Anesthesiology | DX: Z01.818 Encounter for other preprocedural examination (principal); N39.3 Stress incontinence (female) (male); E11.9 Type 2 diabetes mellitus without complications | CPT/HCPCS: 93005 ==

== ENCOUNTER 2020-12-05 06:36 | Day surgery (SDC) | payer OTHER ==
--- NOTE | 2020-12-04 19:12 | P.GSHP ---
History of Present Illness H&P Date: 12/04/20 39 yo female who came to me in September with a c/o incontinence due to physical activity, urgency and dyspareunia. Evaluation identified SCOTTIE. the frequency and dypareunia are probably seocndary toher bad back SHe was given treatment options for the SCOTTIE and comes for a TOT with cystoscopy. The risks and complications including infection, pain injury to adjacent organs, failure, urine retention, erosion, duspareunia have been explained understood and accepted. We also discussed the MESH controversery and understands the risks with this. - Constitutional Constitutional: Denies chills, Denies fever - EENT Eyes: denies blurred vision, denies pain Ears, nose, mouth and throat: Denies headache, Denies sore throat - Cardiovascular Cardiovascular: Denies chest pain, Denies shortness of breath - Respiratory Respiratory: Denies cough, Denies 7 - Gastrointestinal Gastrointestinal: Denies abdominal pain, Denies diarrhea, Denies nausea, Denies vomiting - Genitourinary (Female) Genitourinary: Denies dysuria, Denies hematuria - Genitourinary (Male) Genitourinary: Denies dysuria, Denies hematuria - Musculoskeletal Musculoskeletal: Denies myalgias - Integumentary Integumentary: Denies pruritus, Denies rash - Neurological Neurological: Denies numbness, Denies weakness - Psychiatric Psychiatric: Denies anxiety, Denies depression - Endocrine Endocrine: Denies fatigue, Denies weight change Past Medical History Past Medical History: Asthma, Chest Pain / Angina, Diabetes Mellitus, Fibromyalgia, GERD/Reflux, Hypertension, Osteoarthritis (OA), Pneumonia, Rheumatoid Arthritis (RA), Sleep Apnea/CPAP/BIPAP Additional Past Medical History / Comment(s): migraines, IBS, GASTROPARESIS AND GASTRITIS, URINARY INCONTINENCE History of Any Multi-Drug Resistant Organisms: None Reported Past Surgical History: Section, Cholecystectomy, Tubal Ligation, Uterine Ablation Additional Past Surgical History / Comment(s): d & c. C-SEC X 3. COLD KNIFE CONIZATION Past Anesthesia/Blood Transfusion Reactions: Motion Sickness, Postoperative Nausea & Vomiting (PONV) Smoking Status: Former smoker - Past Family History Father Family Medical History: Cancer Medications and Allergies Home Medications Medication Instructions Recorded Confirmed Type Lisinopril [Prinivil] 10 mg PO HS 02/13/16 11/30/20 History Pregabalin [Lyrica] 150 mg PO BID 12/08/17 11/30/20 History oxyCODONE HCL/ACETAMINOPHEN 1 tab PO Q6HR PRN 12/08/17 11/30/20 History [Percocet 10-325 mg] Ondansetron [Zofran] 4 mg PO Q8HR PRN #8 tab 03/13/20 11/30/20 Rx Dicyclomine [Bentyl] 20 mg PO QID 11/30/20 11/30/20 History INSULIN LISPRO (humaLOG) [humaLOG] 0 units SQ ACHS 11/30/20 11/30/20 History Ibuprofen [Motrin] 600 mg PO BID 11/30/20 11/30/20 History Insulin Glargine,Hum.rec.anlog 0 unit SQ HS 11/30/20 11/30/20 History [Lantus Solostar] Omeprazole [PriLOSEC] 20 mg PO AC-BID 11/30/20 11/30/20 History Allergies Allergy/AdvReac Type Severity Reaction Status Date / Time metoclopramide [From Reglan] Allergy high BP Verified 11/30/20 12:14 trimethobenzamide HCl Allergy Dyspnea, Verified 11/30/20 12:14 [From Tigan] tongue swelled, hives adhesive tape AdvReac tears skin Uncoded 11/30/20 12:14 Surgical - Exam - General well developed, well nourished, no distress - Eyes PERRL - ENT no hearing loss - Neck trachea midline - Respiratory normal expansion, normal respiratory effort - Cardiovascular Rhythm: regular - Abdomen Abdomen: soft, non tender - Genitourinary hypermobile urethra with scottie normal external genitalia, normal perineum - Integumentary no rash, no growths - Neurologic normal coordination, normal sensation - Musculoskeletal normal gait, normal posture - Psychiatric oriented to time, oriented to person, oriented to place, speech is normal, memory intact Assessment and Plan Assessment: Impression: SCOTTIE, lumbosacral disc disease with frequency of urination and dypareunia,asthma, DM, htn, fibromyalgia Plan:TOT with cystoscopy
[~2020-12-05 06:36] MED LIST changes: +AMPICILLIN 1,000 MG in SODIUM CHLORIDE 0.9% 50 ML IVPB PRN; +DEXAMETHASONE SOD PHOSPHATE 4 MG/ML 1 ML VIAL IV ONE; +GENTAMICIN 120 MG in SODIUM CHLORIDE 0.9% 100 ML IVPB PRN; +HYDROmorphone 0.5 MG/0.5 ML SYRINGE IVP PRN; +LIDOCAINE 1% (10MG/ML) FOR IV START INTRADERMA PRN; +ONDANSETRON 4 MG/2 ML VIAL IVP ONE; +SCOPOLAMINE 1.5MG/72HR PATCH TRANSDERM ONE
[2020-12-05 07:40] LABS: Glucose,Whole Blood 267 mg/dL (75-99)
[2020-12-05] MEDS: INSULIN ASPART (NovoLOG) 100 UNIT/ML VIAL SQ ONE ×2 (07:50→09:21)
[2020-12-05] MEDS ORDERED: HYDROmorphone (PF) 1 MG/ML ONE (07:53)
[2020-12-05] MEDS ORDERED: LIDOCAINE 1% INJ 10MG/ML (20 ML MDV) ONE (07:53)
[2020-12-05] MEDS ORDERED: KETOROLAC 15 MG/ML 1 ML VIAL ONE (07:53)
[2020-12-05] MEDS ORDERED: ONDANSETRON 4 MG/2 ML VIAL ONE (07:53)
[2020-12-05] MEDS ORDERED: PROPOFOL 10 MG/ML 20 ML VIAL IV ONE (07:53)
[2020-12-05] MEDS ORDERED: fentaNYL (PF) 50 MCG/ML 2 ML AMP ONE (07:53)
[2020-12-05] MEDS ORDERED: SUCCINYLCHOLINE CHLORIDE VIAL 200 MG/10 ML VIAL IV ONE (07:53)
[2020-12-05] MEDS ORDERED: MIDAZOLAM 2 MG/2 ML VIAL ONE (07:53)
[2020-12-05] MEDS ORDERED: GENTAMICIN 80 MG in SODIUM CHLORIDE 0.9% 500 ML 500 ML IRRIGATION ONE (08:20)
[2020-12-05] MEDS ORDERED: VASOPRESSIN 20 UNIT/ML 1 ML VIAL SQ ONE (08:32)
[2020-12-05] MEDS ORDERED: ONDANSETRON 4 MG TAB PO PRN (08:58)
--- NOTE | 2020-12-05 09:08 | P.OP ---
Date of Procedure: 12/05/20 Preoperative Diagnosis: Stress urinary incontinence Postoperative Diagnosis: Same Procedure(s) Performed: Trans-obturator tape (obtyryx 2) cystoscopy Anesthesia: LILIA Surgeon: Silvestre Pickering Estimated Blood Loss (ml): 25 Pathology: none sent Condition: stable Disposition: PACU Indications for Procedure: The patient is 39. She has stress urinary incontinence by history physical examination and urodynamics. She also has dyspareunia and urgency that it probably related to her back problems. We discussed the treatment of stress incontinence and elected to proceed with a trans-obturator tape. The alternatives have been discussed. The risks and complications including infect ion bleeding pain urine retention persistent of incontinence persistent of urgency and dyspareunia injury of adjacent organs mesh erosion mesh infection among others she comes for this procedure Description of Procedure: The patient is brought to the operating suite. She is given a general endotracheal anesthesia. She's placed lithotomy position with a sterile prep and drape. Tomlin catheters introduced, 16-Bulgarian. The labor sewn laterally with 2-0 silk. A vaginal speculum was introduced. I first make incisions in the inguinal crease bilaterally at the level of the clitoris. I then elevate the anterior vaginal mucosa off the submucosa with 10 mL of a mixture of Pitressin 20 g and 200 mL of saline. I then make a suburethral midline incision. I dissect lateral the bladder neck bilaterally with Metzenbaum scissors. I passed the trans-obturator tape introducers through the inguinal incision through the obturator foramen around into the vagina bilaterally. I make sure not to buttonhole the vaginal mucosa. I then remove the Tomlin and introduce a 17-Bulgarian cystoscope into the bladder to inspect the bladder and urethra to make sure there is no injury and there is none. I then replaced the Tomlin catheter. I attached the trans-obturator grafted introducers and pull the introducers back through the obturator foramen bilaterally. The graft lay in th e mid urethra nicely without tension. I excised the redundant sheathing. I closed the vaginal mucosa with 3-0 Vicryl. I then excised redundant graft at the inguinal incision to close inguinal incision for Vicryl. A vaginal pack is place the labial stitches are removed. The urine into clear. The patient is awake and returned recovery room good condition. Blood loss is approximately 25 mL. She tolerated the procedure well. Her condition is good.
[2020-12-05 09:23] LABS: Glucose,Whole Blood 240 mg/dL (75-99)
[2020-12-05] MEDS ORDERED: SODIUM CHLORIDE 0.9% 1,000 ML IV ONE (10:03)
[2020-12-05] MEDS: oxyCODONE-APAP 10-325MG 1 EACH TAB PO PRN ×2 (11:47→17:58)
[2020-12-05] MEDS: HEPARIN SODIUM,PORCINE/PF 5,000 UNIT/0.5 ML SYRINGE SQ SCH ×2 (11:48→20:50)
[2020-12-05] MEDS: DICYCLOMINE 20 MG TAB PO SCH ×4 (12:10→20:51)
[2020-12-05 12:36] LABS: Glucose,Whole Blood 287 mg/dL (75-99)
[2020-12-05] MEDS: INSULIN ASPART (NovoLOG) 100 UNIT/ML VIAL SQ SCH ×3 (12:40→20:59)
[2020-12-05] MEDS: PREGABALIN 75 MG CAP PO SCH ×2 (14:28→20:50)
[2020-12-05 14:38] VITALS: BMI 44.2
[2020-12-05] MEDS: KETOROLAC 15 MG/ML 1 ML VIAL IVP PRN ×2 (14:51→20:58)
[2020-12-05] MEDS: SODIUM CHLORIDE 0.45% 1,000 ML IV SCH (16:17)
[2020-12-05] MEDS: PANTOPRAZOLE 40 MG TABLET PO SCH (17:31)
[2020-12-05 17:40] LABS: Glucose,Whole Blood 337 mg/dL (75-99)
[2020-12-05 20:54] LABS: Glucose,Whole Blood 312 mg/dL (75-99)
[2020-12-05] MEDS ORDERED: lisinopriL 10 MG TAB PO SCH (21:00)
[2020-12-05] MEDS: FLUTICASONE 220 MCG INHALER INHALATION SCH ×2 (21:26→21:33)
[2020-12-05] MEDS: ALBUTEROL NEBULIZED 2.5 MG/3 ML INHALATION SCH (21:26)
[2020-12-06] MEDS: oxyCODONE-APAP 10-325MG 1 EACH TAB PO PRN ×2 (00:32→06:27)
[2020-12-06 01:22] VITALS: RESP 16; TEMP 97.7
[2020-12-06] MEDS: ALBUTEROL NEBULIZED 2.5 MG/3 ML INHALATION SCH ×3 (01:28→08:52)
[2020-12-06] MEDS: KETOROLAC 15 MG/ML 1 ML VIAL IVP PRN ×2 (03:02→08:37)
[2020-12-06] MEDS: SODIUM CHLORIDE 0.45% 1,000 ML IV SCH (06:27)
[2020-12-06] MEDS: PANTOPRAZOLE 40 MG TABLET PO SCH (06:27)
[2020-12-06] MEDS: DICYCLOMINE 20 MG TAB PO SCH (06:29)
[2020-12-06 06:36] LABS: Glucose,Whole Blood 369 mg/dL (75-99)
[2020-12-06] MEDS: INSULIN ASPART (NovoLOG) 100 UNIT/ML VIAL SQ SCH (06:42)
[2020-12-06] MEDS: HEPARIN SODIUM,PORCINE/PF 5,000 UNIT/0.5 ML SYRINGE SQ SCH (08:36)
[2020-12-06] MEDS: PREGABALIN 75 MG CAP PO SCH (08:37)
[2020-12-06] MEDS: FLUTICASONE 220 MCG INHALER INHALATION SCH (08:52)
[2020-12-06 08:56] VITALS: BP 147/86
[2020-12-06 08:58] VITALS: PULSE 80
--- NOTE | 2020-12-06 10:16 | P.DS ---
Providers Expected date of discharge: 12/06/20 Attending physician: Silvestre Pickering Primary care physician: [facility] Course: On the day of admission, the patient underwent an uncomplicated sling. The perioperative course was unremarkable. The Tomlin catheter was removed on the first postoperative day, along with vaginal packing. She felt well and was able to void without difficulty, though she did report urgency. She was verified to have emptied her bladder completely. Procedures: Obtryx Subfascial Sling on 12/05/2020. Patient Condition at Discharge: Good Plan - Discharge Summary Discharge Rx Participant: No New Discharge Prescriptions: New Cephalexin [Keflex] 500 mg PO Q8HR 1 Days #9 cap No Action Lisinopril [Prinivil] 10 mg PO HS Pregabalin [Lyrica] 150 mg PO BID oxyCODONE HCL/ACETAMINOPHEN [Percocet 10-325 mg] 1 tab PO Q6HR PRN PRN Reason: Pain Ondansetron [Zofran] 4 mg PO Q8HR PRN #8 tab PRN Reason: Nausea And Vomiting Dicyclomine [Bentyl] 20 mg PO QID Insulin Glargine,Hum.rec.anlog [Lantus Solostar] 0 unit SQ HS INSULIN LISPRO (humaLOG) [humaLOG] 0 units SQ ACHS Ibuprofen [Motrin] 600 mg PO BID Omeprazole [PriLOSEC] 20 mg PO AC-BID Discharge Medication List Lisinopril [Prinivil] 10 mg PO HS 02/13/16 [History] Pregabalin [Lyrica] 150 mg PO BID 12/08/17 [History] oxyCODONE HCL/ACETAMINOPHEN [Percocet 10-325 mg] 1 tab PO Q6HR PRN 12/08/17 [History] Ondansetron [Zofran] 4 mg PO Q8HR PRN #8 tab 03/13/20 [Rx] Dicyclomine [Bentyl] 20 mg PO QID 11/30/20 [History] INSULIN LISPRO (humaLOG) [humaLOG] 0 units SQ ACHS 11/30/20 [History] Ibuprofen [Motrin] 600 mg PO BID 11/30/20 [History] Insulin Glargine,Hum.rec.anlog [Lantus Solostar] 0 unit SQ HS 11/30/20 [History] Omeprazole [PriLOSEC] 20 mg PO AC-BID 11/30/20 [History] Cephalexin [Keflex] 500 mg PO Q8HR 1 Days #9 cap 12/06/20 [Rx] Follow up Appointment(s)/Referral(s): Silvestre Pickering MD [STAFF PHYSICIAN] - 1 Week Patient Instructions/Handouts: *Surgery [facility] - (Anesthesia) Discharge Instructions Outpatient Surgery, *[facility] - Scopalamine Patch Instructions Activity/Diet/Wound Care/Special Instructions: Please notify Dr Pickering if you are unable to void, have symptoms of a urinary tra ct infection such as fever, chills, painful urination or any concerning symptoms. You can have some bleeding and pink tinged urine but if you have heavy bleeding, clots, or thick bright red blood notify Dr Pickering. You may shower, but no tub baths or pools. You may work as long as you are sitting at your job. No heavy lifting, light activity as tolerated. Avoid intercourse. Lots of fluids. Any pain in your chest or calves or difficulty breathing come to the ER or call 911. Discharge Disposition: HOME SELF-CARE
[2020-12-06 15:46] LABS: Hemoglobin A1C 10.1 % (4.0-6.0)
== END 2020-12-06 10:35 | disposition home or self-care (01) ==
LOC: OR 06:36 → 6PED 09:19 → OR 12-06 10:35
PROVIDERS: ATTEND Urology
DX: N39.3 Stress incontinence (female) (male) (principal); N94.10 Unspecified dyspareunia; J45.909 Unspecified asthma, uncomplicated; E11.9 Type 2 diabetes mellitus without complications; M79.7 Fibromyalgia; Z20.822 Contact with and (suspected) exposure to COVID-19; K21.9 Gastro-esophageal reflux disease without esophagitis; I10 Essential (primary) hypertension; M19.90 Unspecified osteoarthritis, unspecified site; M06.9 Rheumatoid arthritis, unspecified; G47.30 Sleep apnea, unspecified; Z87.01 Personal history of pneumonia (recurrent); G43.909 Migraine, unspecified, not intractable, without status migrainosus; K58.9 Irritable bowel syndrome, unspecified; K29.70 Gastritis, unspecified, without bleeding; E66.9 Obesity, unspecified; Z68.41 Body mass index [BMI] 40.0-44.9, adult; Z98.891 History of uterine scar from previous surgery; Z90.49 Acquired absence of other specified parts of digestive tract; Z98.51 Tubal ligation status; Z98.890 Other specified postprocedural states; Z87.891 Personal history of nicotine dependence; Z87.19 Personal history of other diseases of the digestive system; Z80.9 Family history of malignant neoplasm, unspecified; Z79.1 Long term (current) use of non-steroidal anti-inflammatories (NSAID); Z79.4 Long term (current) use of insulin; Z79.891 Long term (current) use of opiate analgesic; Z79.899 Other long term (current) drug therapy; Z88.8 Allergy status to other drugs, medicaments and biological substances; Z91.09 Other allergy status, other than to drugs and biological substances
CPT/HCPCS: 57288; 94640 ×4; 81025; 83036; 87635; C1771; J2250; J0330; J1580 ×2; J1100; J2405; J2001; J3010; J0290; J1170; J1885 ×2; J2704; J1644 ×2

== ENCOUNTER → 2021-01-01 | Outpatient (CLI) | payer OTHER ==
[2021-01-01 18:08] LABS: Gliadin AB IgA, Deaminated NEGATIVE (NEGATIVE); Gliadin AB IgG, Deaminated NEGATIVE (NEGATIVE)
== END | disposition home or self-care (01) ==
LOC: LABWHC1 07:23
PROVIDERS: ATTEND Nurse Practitioner
DX: K58.0 Irritable bowel syndrome with diarrhea (principal)
CPT/HCPCS: 36415; 83516

== ENCOUNTER → 2021-01-07 | Outpatient (CLI) | payer OTHER ==
--- NOTE | 2021-01-07 08:42 | MR ---
EXAMINATION TYPE: MR lumbar spine wo con DATE OF EXAM: 01/07/2021 COMPARISON: CT abdomen and pelvis March 13, 2020 HISTORY: Low back pain per order. Pain into bilateral lower extremities per patient. TECHNIQUE: Multiplanar, multisequence imaging of the lumbar spine is performed without IV contrast. FINDINGS: Sagittal images of the lumbar spine show vertebral body heights and alignment to appear sat isfactory. Multilevel disc desiccation is identified. There is moderate 2 severe disc space narrowing with heterogeneous Modic type II endplate changes greatest right L4-L5 level. Disc space heights oth erwise fairly well maintained. The conus medullaris is normal somewhat low in position ending superi or L2 level. No abnormal signal or clumping of lumbosacral nerve roots. Mild multilevel anterior spur ring redemonstrated some additional scattered mild areas of Modic type II endplate changes noted. Axial images at T11-T12 level shows left paracentral disc protrusion effacing anterolateral thecal sa c on image 33. Axial images at T12-L1 show tiny right paracentral disc protrusion minimally effacing the anterior th ecal sac maximum of 28. Axial images at L1-L2 level appear within normal limits. Axial images at L2-L3 level mild broad-based posterior disc protrusion mildly effacing the anterior t hecal sac. Mild facet arthropathy bilaterally. Patent bilateral neural foramina. Axial images at L3-L4 levels mild/moderate broad disc bulge with left lateral disc protrusion compone nt. There is mild to moderate facet arthropathy. There is effacement of the anterior thecal sac. Ther e is moderate left-sided inferior neural foraminal narrowing. Patent right-sided neural foramina. Axial images at L4-L5 level show moderate to advanced broad-based posterior disc protrusion along wit h moderate facet arthropathy and ligamentum flavum hypertrophy. There is anterior and posterior later al spinal canal effacement on axial image 8. There is moderate inferior bilateral neural foraminal na rrowing, encroachment right L4 nerve thought present extraforaminal level axial image 8 and sagittal image 11. Axial images at L5-S1 level moderate facet degenerative changes and ligamentum flavum hypertrophy pre sent posterior lateral thecal sac. There is moderate broad-based posterior disc protrusion base anter ior thecal sac. Mild to moderate left greater than right bilateral neural foraminal narrowing. Paraspinal muscle bulk is preserved. IMPRESSION: Multilevel degenerative changes of the lumbar spine as detailed above. Most prominent spi nal canal effacement is noted at L4-L5 and L5-S1 levels.
== END | disposition home or self-care (01) ==
LOC: RADMRIMAIN 07:41
PROVIDERS: ATTEND Orthopaedic Surgery
DX: M51.26 Other intervertebral disc displacement, lumbar region (principal); M47.816 Spondylosis without myelopathy or radiculopathy, lumbar region; M99.73 Connective tissue and disc stenosis of intervertebral foramina of lumbar region
CPT/HCPCS: 72148

== ENCOUNTER → 2021-02-14 | Outpatient (CLI) | payer OTHER ==
[2021-02-14 20:22] LABS: HIV 2 AB Non-Reactive (Non-Reactive); HIV AB P24 Non-Reactive (Non-Reactive); HIV P24 AG Non-Reactive (Non-Reactive)
[2021-02-15 14:04] LABS: HIV-1 RNA Not detected (Not detected); HIV-1 RNA, Quant <40 Copies/mL (<40)
== END | disposition home or self-care (01) ==
LOC: LABWHC1 11:49
PROVIDERS: ATTEND Internal Medicine Infectious Disease
DX: B20 Human immunodeficiency virus [HIV] disease (principal)
CPT/HCPCS: 36415; 87390; 87536

== ENCOUNTER 2021-03-19 12:06 | Day surgery (SDC) | payer OTHER ==
[~2021-03-19 12:06] MED LIST changes: -AMPICILLIN 1,000 MG in SODIUM CHLORIDE 0.9% 50 ML IVPB PRN; -DEXAMETHASONE SOD PHOSPHATE 4 MG/ML 1 ML VIAL IV ONE; -GENTAMICIN 120 MG in SODIUM CHLORIDE 0.9% 100 ML IVPB PRN; -HYDROmorphone 0.5 MG/0.5 ML SYRINGE IVP PRN; -LIDOCAINE 1% (10MG/ML) FOR IV START INTRADERMA PRN; -ONDANSETRON 4 MG/2 ML VIAL IVP ONE; -SCOPOLAMINE 1.5MG/72HR PATCH TRANSDERM ONE
[2021-03-19 12:28] VITALS: RESP 16; TEMP 97.6
[2021-03-19] MEDS ORDERED: LIDOCAINE 1% (10MG/ML) FOR IV START INTRADERMA ONE (12:36)
[2021-03-19 12:40] LABS: Glucose,Whole Blood 185 mg/dL (75-99)
[2021-03-19] MEDS ORDERED: fentaNYL (PF) 50 MCG/ML 2 ML AMP ONE (12:53)
[2021-03-19] MEDS ORDERED: MIDAZOLAM 2 MG/2 ML VIAL ONE (12:53)
[2021-03-19] MEDS ORDERED: IOPAMIDOL M200 10 ML VIAL ONE (12:53)
[2021-03-19] MEDS ORDERED: methylPREDNISolone ACETATE 40 MG/ML 1 ML VIAL ONE (12:53)
[2021-03-19] MEDS ORDERED: IV FLUID CONTINUATION 1,000 ML IV ONE (13:14)
--- NOTE | 2021-03-19 13:17 | P.PCN ---
Date of Procedure: 03/19/21 Procedure(s) Performed: PREOPERATIVE DIAGNOSIS:1- Lumbar radiculopathy . 2-lumbar spondylosis POSTOPERATIVE DIAGNOSIS: Same as preoperative diagnoses. PROCEDURE 1. Transforaminal epidural steroid injection under fluoroscopic guidance at Bilateral L5-S1 level. (Fluoroscopy images stored on file in the radiology Department ) 2. Lumbar epidurogram . ANESTHESIA: Local with 1% lidocaine 3 ml , moderate sedation with intravenous Versed 2 mg and fentanyle 100 micrograms. EBL: Minimal PROCEDURE INDICATION: The patient with low back pain and radiculopathy symptoms unresponsive to conservative treatment. PROCEDURE DESCRIPTION / TECHNIQUE: The patient was seen and identified in the preoperative area. Risks, benefits, complications, and alternatives were discussed with the patient. The patient agreed to proceed with the procedure and signed the consent. IV was started, and vital signs were stable. Patient was taken to the OR and time out was completed. The patient was placed in the prone position on procedure table and a pillow was placed under the abdomen to reduce lumbar lordosis. The lumbosacral area was prepped and draped in the usual sterile fashion. Critical pause was taken. Vital signs were closely monitored during the procedure. Conscious sedation was used during the procedure to decrease patient s anxiety. Using oblique fluoroscopy, the chin of the ``Jalen dog at Right L5-S1 level was identified, and the skin and deeper tissues just below was localized with 1% lidocaine. Subsequently, a 22-gauge 5-inch spinal needle was advanced under a tunneled view fluoroscopic guidance just underneath the chin of the ``Jalen dog at the right L5-S1 Under lateral fluoroscopy, the needle was then advanced to the posterior border of the interforaminal space. After negative aspiration of CSF and blood and with no paresthesias, 1 mL Isovue 200 contrast dye was injected excellent epidurogram and outlining of the nerve root Subsequently, 3 mL of block solution containing 20 mg Depo-Medrol and 2 mL of 0.9% normal saline PF was injected. Needle was removed and the same procedure was repeated at the left L5-S1 level . At the end of the procedure, skin was cleansed, and bandages were applied. COMPLICATIONS:none DISPOSITION / PLANS: The patient was placed in a supine position and transferred to the recovery area in a stable condition for observation. There was no evidence of lower extremity motor or sensory deficit after the procedure. Patient was discharged from the recovery room after meeting discharge criteria. Home discharge instructions were given to the patient by the staff. The patient was reexamined prior to discharge.
[2021-03-19 13:37] VITALS: BP 135/81; PULSE 76
--- NOTE | 2021-03-19 13:41 | FL ---
EXAMINATION TYPE: FL guided pain mgmt statistic DATE OF EXAM: 03/19/2021 HISTORY: Fluoroscopy time 35 seconds of fluoroscopy provided. IMPRESSION: 1. Fluoroscopy time.
== END 2021-03-19 13:52 | disposition home or self-care (01) ==
LOC: ORPAIN 12:06
PROVIDERS: ATTEND Specialist
DX: M54.16 Radiculopathy, lumbar region (principal); M47.816 Spondylosis without myelopathy or radiculopathy, lumbar region; Z88.8 Allergy status to other drugs, medicaments and biological substances
CPT/HCPCS: 64483; J2250; J1030; J3010; Q9966; 99152

== ENCOUNTER → 2021-05-07 | Outpatient (CLI) | payer OTHER ==
[2021-05-07 08:59] VITALS: BP 104/70; PULSE 79; RESP 18; TEMP 98.3
--- NOTE | 2021-05-07 09:39 | P.PN ---
Progress Note - Text Progress Note Date: 05/07/21 The patient states she is not here for her well woman exam since she already had that done earlier this year. She states she is here because of her endometriosis and bleeding problems and is looking to have a hysterectomy for more definitive treatment. I have explained to her that I no longer do surgery and will not be able to see her for her problems and that she should try to make an appointment with someone who can deal with her problems and be able to treat her accordingly. She understands this now that I am only doing well woman care and very limited gynecologic care. She states she will speak with her insurance company to determine who accepts her insurance. I performed no physical exam and no medical advice was given.
== END ==
LOC: WWCWWP 08:36
PROVIDERS: ATTEND Obstetrics & Gynecology
DX: N80.9 Endometriosis, unspecified (principal); Z87.891 Personal history of nicotine dependence; Z91.048 Other nonmedicinal substance allergy status; Z88.6 Allergy status to analgesic agent; Z88.8 Allergy status to other drugs, medicaments and biological substances

== ENCOUNTER 2021-05-21 06:02 | Day surgery (SDC) | payer OTHER ==
[2021-05-20 10:24] VITALS: BMI 43.0
[2021-05-21 06:44] VITALS: TEMP 96.5
[2021-05-21 06:47] LABS: Glucose,Whole Blood 274 mg/dL (75-99)
[2021-05-21] MEDS ORDERED: fentaNYL (PF) 50 MCG/ML 2 ML AMP ONE (07:04)
[2021-05-21] MEDS ORDERED: DEXAMETHASONE SOD PHOSPHATE 10 MG/ML 1 ML VIAL ONE (07:04)
[2021-05-21] MEDS ORDERED: MIDAZOLAM 2 MG/2 ML VIAL ONE (07:04)
[2021-05-21] MEDS ORDERED: LIDOCAINE 1% INJ 10MG/ML (20 ML MDV) ONE (07:04)
[2021-05-21] MEDS ORDERED: IOPAMIDOL M200 10 ML VIAL ONE (07:04)
[2021-05-21] MEDS ORDERED: IV FLUID CONTINUATION 800 ML IV ONE (07:38)
[2021-05-21 07:43] LABS: Glucose,Whole Blood 240 mg/dL (75-99)
--- NOTE | 2021-05-21 07:45 | P.PCN ---
Date of Procedure: 05/21/21 Surgeon: Kim Muñoz Pathology: none sent Condition: stable Disposition: PACU Description of Procedure: PREOPERATIVE DIAGNOSIS: Lumbar radiculopathy POSTOPERATIVE DIAGNOSIS: Lumbar radiculopathy PROCEDURE 1. Transforaminal epidural steroid injection under fluoroscopic guidance at L5- S1 bilaterally 2. Lumbar epidurogram. SURGEON: Kim Muñoz MD ANESTHESIA: Local with 1% lidocaine; IV sedation with Versed and fentanyl. EBL: Minimal PROCEDURE INDICATION: The patient with low back pain and radiculopathy symptoms unresponsive to conservative treatment. PROCEDURE DESCRIPTION / TECHNIQUE: The patient was seen and identified in the preoperative area. Risks, benefits, complications, and alternatives were discussed with the patient. The patient agreed to proceed with the procedure and signed the consent. IV was started, and vital signs were stable. Patient was taken to the OR and time out was completed. The patient was placed in the prone position on procedure table and a pillow was placed under the abdomen to reduce lumbar lordosis. The lumbosacral area was prepped and draped in the usual sterile fashion. Critical pause was taken. Vital signs were closely monitored during the procedure. Conscious sedation was used during the procedure to decrease patients anxiety. The vertebral body of the lumbar vertebra L5 was squared off by tilting the C-arm cephalad then the C-arm was tilted to the oblique position and the target point was at the 6 o'clock position of the pedicle of then skin and deeper tissues were localized with 1% lidocaine. Subsequently, a 22-gauge 5- inch spinal needle was advanced under a tunneled view fluoroscopic guidance just underneath the chin of the Jalen dog at the . Under lateral fluoroscopy, the needle was then advanced to the middle of the upper one third of the foramen between(L5-S1 ). After negative aspiration of CSF and blood and with no paresthesias, 1 mL of omnipaque contrast dye was injected excellent epidurogram and outlining of the L5 nerve root was identified. Subsequently, 1.5 mL of block solution containing 5 mg of Decadron and 1 mL of Lidocaine 1% PF was injected. Needle was removed intact . The procedure was repeated in the same manner on the opposite side At the end of the procedure, skin was cleansed, and bandages were applied. The total dose use of Decadron for this procedure was 10 mg only due to the patient's preoperative hypoglycemia. Of note the patient's preop blood sugar was 274 COMPLICATIONS: None COMMENTS: DISPOSITION / PLANS: The patient was placed in a supine position and transferred to the recovery area in a stable condition for observation. There was no evidence of lower extremity motor or sensory deficit after the procedure. Patient was discharged from the recovery room after meeting discharge criteria. Home discharge instructions were given to the patient by the staff.
[2021-05-21 07:47] VITALS: RESP 16
[2021-05-21 08:03] VITALS: BP 132/80; PULSE 60
--- NOTE | 2021-05-21 10:02 | FL ---
EXAMINATION TYPE: FL guidance operating room DATE OF EXAM: 05/21/2021 HISTORY: Fluoroscopy time 1 minute and 30 seconds of fluoroscopy provided. IMPRESSION: 1. Fluoroscopy time.
== END 2021-05-21 08:08 | disposition home or self-care (01) ==
LOC: ORPAIN 06:02
PROVIDERS: ATTEND Anesthesiology
DX: M54.16 Radiculopathy, lumbar region (principal)
CPT/HCPCS: 64483; 81025; J2250; J1100; J2001 ×2; J3010; Q9966; 99152; 99153

== ENCOUNTER 2021-07-02 07:27 | Observation (INO) | payer OTHER ==
[2021-06-24 10:55] VITALS: BMI 43.7
--- NOTE | 2021-07-02 06:24 | P.HPOR ---
History of Present Illness H&P Date: 06/24/21 Chief Complaint: LE weakness, radiculopathy Date of :[birth year] R14 Allergies: Age: 40 year Height: 5'3" Weight: 249 lbs BP:121/76 BMI: 44.11 kg/m2 Occupation: Disabled VAS: 8 CHIEF COMPLAINT: LLE pain and weakness HISTORY: Xrays No new xrays taken today Trauma or injury None recently, falls in the past. Work-Related No. Pain description Sharp Location Diffuse Activity Modification Yes, unable to complete most daily activities secondary to her pain. Hand Dominance Right. DOI: Acute on chronic. DOS: None. TREATMENTS COMPLETED: 6 weeks of PT completed? Yes How many sessions? 6 Did it help? No Physician directed home exercise completed? yes, with no improvements. Medications yes List: Medrol, motrin, flexeril, gabapentin all without improvement. Percocet and Lyrica as well without any improvements. Alternative interventions Chiropractic?: No Brace: No Injections Yes How many? 2 Did they help? No RFA: No SUBJECTIVE: Patient presents to the office today for a pre-operative visit regarding her low back. Since the time of the last appointment she notes that her symptoms have continued to progress. She notes that over the last two weeks her radiculopathic symptoms. 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 Along with this she states that she has been unable to walk for more than 100 yards, which is severely limiting her daily functionality. Of note, the patient did state that she does have a history of rhabdomyolysis with no known mechanism of onset, along with fibromyalgia. Overall the patient's daily functionality is severely limited and her capacity to complete most of her daily functions is very limited. Patient denies any bladder or bowel issues, no perineal numbness/tingling, and ambulates without the use of any aides. HPI: (review of visits from 05/23/2021 and 02/20/2021) Ms. Arteaga last presented to the office on 05/23/2021 for follow up after her injections and for recheck. She continues to have significant LLE pain and weakness that is bothering her significantly. She has back pain as well that is claudicant in nature. She cannot walk or stand for any significant timeframe at this point and needs frequent rests for her back and leg. She denies any bowel or bladder issues. Denies any perineal numbness tingling. She states the shots only helped her for 1-3 days at a time and after the second shot she got so ill that she refuses another shot. She states she is ready for surgery. Ms. Arteaga was previously seen on 02/20/2021 regarding her back.Patient states that she has had multiple falls. She has had multiple sessions of physical therapy from [id number]. She states that she has had low back pain for 16 years. She reports low back pain that radiates into both of her legs. She notes that her leg muscles are weak. She does state some bladder incontinence but she recently had a sling placed 2 weeks to prior visit (12/19/2020). She does have history of a bladder sling surgery. Patient that she has had previous steroid injections with no relief. Patient is taking Ibuprofen 600mg and Lyrica for pain. Patient is ambulating with a cane and does also use a walker as needed. At her previous visit a MRI was ordered and send home with both a home exercise program as well as a home maintenance program. Today she is similar to her state at her last visit. She is still complaining primarily of lumbar back pain that is diffuse. Additionally, she notes significant discomfort of posterior left leg pain that radiates from her lumbar back. Of note, she has been seen previously by Dr. Arechiga who administered her previous injections. Additionally, she has been previously diagnosed with diabetes mellitus, she notes that this is being managed by a in store banker out of the [facility] system. The patient notes that her back pain started after a y ears ago. Additionally, she has previously had a fall, one she notes resulted with her breaking her coccyx which has brought her significant pain since. Patient does note that her blood sugar has been abnormally high since her diagnosis, for which she is regularly taking Insulin. The patients' past social, medical, family, surgical history, as well as review of systems, have been reviewed. Please refer to the Neurosurgery History and Physical form that has been scanned in to our electronic medical record system. Review of Systems 14 points review of systems completed and as stated in HPI, all other systems reviewed are negative. Past Medical History Past Medical History: Asthma, Cancer, Chest Pain / Angina, COPD, Diabetes Mellitus, Fibromyalgia, GERD/Reflux, Hyperlipidemia, Hypertension, Musculoskeletal Disorder, Osteoarthritis (OA), Pneumonia, Rheumatoid Arthritis (RA), Sleep Apnea/CPAP/BIPAP Additional Past Medical History / Comment(s): "Finished antibiotic today for recent triple ear infection, sinus infection and UTI, Dr Graf aware." Endometriosis. Varicose veins. Memory loss from Fibromyalgia. Migraines, has had "black outs". Episodes of vomting, diarrhea. Gastroparesis, IBS and Gastrtitis. Hx Cervical cancer 10 yrs ago. "Kidney/liver issues (elevated liver enzymes) due to Diabetes". Degenerative Disc Disease. History of Any Multi-Drug Resistant Organisms: None Reported Past Surgical History: Bladder Surgery, Section, Cholecystectomy, Tubal Ligation, Uterine Ablation Additional Past Surgical History / Comment(s): Section X3, cervix removed, D&C. Past Anesthesia/Blood Transfusion Reactions: Motion Sickness, Postoperative Nausea & Vomiting (PONV) Additional Past Anesthesia/Blood Transfusion Reaction / Comment(s): Grandmother hard to wake up. Past Psychological History: Anxiety, Bipolar, Depression Smoking Status: Former smoker Past Alcohol Use History: None Reported Additional Past Alcohol Use History / Comment(s): Quit smoking on and off many times, last quit 15 yrs ago. Past Drug Use History: Marijuana Additional Drug Use History / Comment(s): Daily Marijuana use, "has Medical Marijuana Card". Aware no use 24 hrs prior to procedure. - Past Family History Father Family Medical History: Cancer Medications and Allergies Home Medications Medication Instructions Recorded Confirmed Type Lisinopril [Prinivil] 10 mg PO HS 02/13/16 06/24/21 History Pregabalin [Lyrica] 150 mg PO BID 12/08/17 06/24/21 History oxyCODONE HCL/ACETAMINOPHEN 1 tab PO Q6HR PRN 12/08/17 06/24/21 History [Percocet 10-325 mg] Ondansetron [Zofran] 4 mg PO Q8HR PRN #8 tab 03/13/20 06/24/21 Rx Dicyclomine [Bentyl] 20 mg PO QID 11/30/20 06/24/21 History INSULIN LISPRO (humaLOG) [humaLOG] 10 units SQ TID 11/30/20 06/24/21 History Insulin Glargine,Hum.rec.anlog 40 unit SQ QAM 11/30/20 06/24/21 History [Lantus Solostar] Omeprazole [PriLOSEC] 20 mg PO AC-BID 11/30/20 06/24/21 History INSULIN LISPRO (humaLOG) [humaLOG] 0 units SQ ACHS PRN 03/15/21 06/24/21 History Ibuprofen [Motrin] 800 mg PO TID 03/15/21 06/24/21 History Dulaglutide [Trulicity] 0.75 mg SQ TU 05/07/21 06/24/21 History Escitalopram Oxalate [Lexapro] 20 mg PO QAM 05/21/21 06/24/21 History Albuterol Sulfate [Proair Hfa] 2 puff INHALATION QID 06/24/21 06/24/21 History L.acidoph,Paracasei, B.lactis 1 each PO DAILY 06/24/21 06/24/21 History [Probiotic] Multivitamins, Thera [Multivitamin 1 tab PO DAILY 06/24/21 06/24/21 History (formulary)] Allergies Allergy/AdvReac Type Severity Reaction Status Date / Time metoclopramide [From Reglan] Allergy high BP Verified 06/24/21 10:21 trimethobenzamide HCl Allergy Dyspnea, Verified 06/24/21 10:21 [From Tigan] tongue swelled, hives Physical Examination Osteopathic Statement: *. No significant issues noted on an osteopathic structural exam other than those noted in the History and Physical/Consult. General: Awake, alert, appropriate for age, in no acute distress. HEENT: No unusual neck masses around region of lateral neck triangle, thyroid, supraclavicular groove Heart: Regular rate and rhythm, normal S1, S2 and no murmur/gallop. Lungs: Clear to auscultation bilaterally with no use of accessory muscles. Extremities: Skin warm and dry without acute lesions, coloration, temperature, skin intact, no tenderness or erythema Integument: Hairy patches: Absent Dorsal skin dimples: Absent Cafe au lait spots: Absent Surgical incisions: No Palpation: Please see Pain drawing on Intake sheet for further detail. Midline spinal tenderness: No E6 Paralumbar tenderness: Yes E6 Parathoracic tenderness: No E6 Buttocks tenderness: No E6 Special findings: No POSTURAL and MUSCULO-SKELETAL EVALUATION: Coronal Balance: NEUTRAL Recumbent testing: Patient is able to lay flat on back Sagittal Balance: POS Shoulder Profile: LEVEL Pelvic Girdle: LEVEL Neck ROM: UNRESTRICTED Lumbar ROM: PAINFUL Shoulder ROM: Symmetrical Hip ROM: Symmetrical Knee ROM: Symmetrical Hands: Normal appearance, symmetrical Feet: Normal appearance, Symmetrical VASCULAR STATUS : LEFT RIGHT Wrist Pulses INTACT INTACT Pedal Pulses (Dors. pedis & post.tibialis) INTACT INTACT Color NORMAL NORMAL Edema Absent Absent NEUROLOGIC EXAMINATION: Mental Status:Awake and alert, fully oriented, with normal attention, co ncentration and memory, and fluent, appropriate speech. Cranial Nerves: I: Olfactory not tested. II: Visual acuity normal, no visual field deficit noted with confrontation. III,IV: Normal pupillary reflexes & intact extraocular movements without nystagmus. V,: Intact symmetrical facial sensation. VII: Intact symmetrical facial motor movement VIII: Hearing intact. IX,X: Intact gag, swallow, & normal voice. XI: Sternocleidomastoid, trapezius function intact. XII: Tongue midline with normal movements. L'hermitte's Sign: Negative / absent Spurling'Sign: Absent bilaterally. Cubital percussion test: Absent bilaterally. Ramya-Tinel sign - Carpal region: Absent bilaterally. Straight Leg Raising: Absent bilaterally. 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 Sensory system (0-4, N/T) Test type RU TATIANA RL LL Joint-Position 2 2 2 2 Vibration 2 2 2 2 Pain & LT sense 2 2 2 2 Dermatomal Deficit: None None L4-5 L4-5 and L5-S1 Gait and Functional Evaluation: Ambulatory aids: Cane Romberg's test: Intact bilaterally Toe heel walk / heel-toe walk intact while maintaining satisfactory balance? No Squatting/straightening w/o assistance to a min of 60 degree knee flexion? No Single leg stance: Trendelenburg sign negative bilaterally Hand and finger dexterity intact bilaterally? yes Disdiadochokinesis examination negative bilaterally? yes Results XRay taken of Lumbar Spine: There is spondylosis of L4-S1 noted with disc height loss, flattening of the normal lumbar lordosis at these levels and facet arthrosis. There is no fracture or dislocation noted. No instability through F/E films noted. PI/LL mismatch noted due to spondylosis. No lesions noted. AP pelvis shows congruent level pelvis with no fracture MRI scan of Lumbar Spine: This shows L4-5 and L5-S1 spondylosis. There is HNP at L4-5 and L5-S1 that is more eccentric to LHS. there are Type II modic changes of the L4-5 and L5-S1 endplates with disc dessication height loss and spondylosis noted. There is some uptake within the facet joints, no instability noted. NO fracture lesions or other deformities noted. Sagittal balance issues related to these levels. Assessment and Plan Assessment: 1. L4-S1 spondylosis 2.L4-S1 HNP 3. L4-S1 stenosis L>R 4. LLE radiculopathy 5. LLE weakness 6. Low back pain Plan: Spine Surgery Risk Review Yared Arteaga is a 40 y/o female patient presenting for evaluation of mechanical low back pain. It was my pleasure to have seen and examined Yared Arteaga. In our visit today we have had a chance to go over subjective complaints, physical examination findings and treatments including the natural course history without intervention and various interventional options. The patients imaging demonstrates L4-5 and L5-S1 spondylosis. There is HNP at L4-5 and L5-S1 that is more eccentric to LHS. there are Type II modic changes of the L4-5 and L5-S1 endplates with disc dessication height loss and spondylosis noted. There is some uptake within the facet joints, no instability noted. NO fracture lesions or other deformities noted. Sagittal balance issues related to these levels. On physical exam, Yared Arteaga demonstrates bilateral lower extremity weakness and radiculopathy. I have explained to the patient that as their condition progresses it will cause further neurological deficits and eventual paralysis. Based on the patients imaging, physical exam, and the rapid progression and disabling nature of their symptoms, at this time I recommend surgery in the form or a: Decompression, microdiscectomy and foraminotomy of L4-5 and L5-S1 on the Left. I discussed the risk and benefits of this procedure at length with Yared Arteaga. The patient agreed to considered pursuing the procedure abovementioned. Prior to surgery, she should follow up with her PCP (Cardio, ID, IM etc) for clearance. Questions were invited and answered, and the patient wishes to proceed as outlined below. Currently, I am recommendin.Decompression, microdiscectomy and foraminotomy of L4-5 and L5-S1 on the Left 2.Follow up with PCP for surgical clearance 3.Review of surgical risks and benefits as well as an educational packet on the proposed surgical procedure. Risks: All surgical procedures come with inherent risks, including those related to positioning, anesthesia, intraoperative findings, and postoperative complications. It is important to understand that surgery does not come with any guarantee of a successful outcome as complications and adverse events are always possible. The patient was given a handout in office today discussing the surgical procedure and risks associated with the intervention, both of which were discussed with the patient. These risks include but are not limited to the following: * Experiencing same, different or even worse symptoms in back, neck, arms, or legs compared to before surgery. Requiring further surgery or other forms of treatment presently or at some time in the future at same or other levels of the intended spine surgery. On an extreme but fortunately relatively rare basis severe complication such as blindness, stroke, heart attack, temporary and/or permanent nerve injury, paralysis, coma, or may occur, sometimes without known explanation. Surgical complications may include but are not limited to risk of infection, fluid accumulation in the surgical dissection site, including a seroma or hematoma, that requires additional surgery, wound drainage, bleeding, new numbness or weakness, vision changes/loss, spinal fluid leakage, non-healing and/or infected incision, headaches, difficulty or inability to swallow, hoarseness, hemopneumothorax, pneumothorax, impotence, retrograde ejaculation, vaginal dryness; injury to nerves, spinal cord, blood vessels, lymphatics or other vital organs (i.e., bowel injury, injury to the great vessels); heterotopic bone formation; complications related to the hardware such as screws, rods, cages including misplaced hardware, device failure, instrumentation at the wrong spine level, hardware fracture/breakage, or hardware loosening; vertebral failure of the spinal column above or below the newly placed hardware; retained surgical instrumentations or devices and the need for further surgery. * Medical risks of the planned spine surgery include but are not limited to generalized Infections to the whole body or local areas outside of the surgical site (sepsis), heart attack, bleeding, anaphylaxis, meningitis, seizure, epilepsy, hearing loss, burn durham, laceration of the head or other areas of the body, bruising, hypersensitivity of the skin, bladder over distension; allergic reaction; shoulder injury related to positioning; fat, blood and air clots to other areas of the body like heart, lungs, brain; failure of internal organs such as lungs, kidneys, liver and excessive bleeding. If blood transfusions are necessary, note that transfusions may cause intolerance reactions such as anaphylaxis or other complex reactions. Despite best efforts, the results of spine surgery might not heal in terms of bone, soft tissues such as skin, fascia, ligaments, and joints. Additionally, in order to achieve best possible results, spine surgery may be carried out beyond the initially planned levels and involve decompression, fusion including insertion of hardware at levels other than the original intended area of surgical interest change some portions of the procedure in order to ensure the best possible outcomes. With spine surgery and spinal fusion, there are different off label uses of instrumentation (devices, implants and hardware) as well as biological substances (bone morphogenic proteins, demineralized bone matrix) as well as using extra bone from allograft sources (i.e. cadaver bone) or autograft (iliac crest bone, ribs, or the spine itself). The patient has been given information about these practices and their inherent risks and benefits. Formerly [facility] is an educational center that serves as a training facility for neurosurgical and orthopedic spine residents and fellows. Residents are physicians who are completing their surgical intensive training following medical school. They assist in the operating room with direct supervision of the attending surgeons. [place] are surgeons who have completed their training and eligible for board certification. They have opted for an elective year of more specialized training in their field. They assist in the operating room under the supervision of the attending surgeons. Physician assistants are medically trained surgical providers who function in the outpatient, inpatient, and operating room setting under the direct supervision of the attending surgeon. Formerly [facility] has multiple operating rooms with single and overlapping rooms running daily. They currently function under the required guidelines as produced by the [facility] Finance Committee with regards to the overlapping rooms and will continue to comply with changes to this policy as they occur. The requirements include and are complied with as follows: (1) the critical portions of the overlapping rooms will not occur at the same time, (2) the attending physician will be physically present during the critical portions of the procedure and immediately available during the entire case, and (3) a back-up attending is designated should the primary attending not be immediately available. The patient has had a chance to review all the listed information, has been given print outs detailing this information, and has had all his/her questions answered to their satisfaction. It was my pleasure to have seen and examined Yared Arteaga. In our visit today we have had a chance to go over my understanding of our patient's current condition, the natural course history without intervention and various interventional options. Questions were invited and answered, and the patient wishes to proceed as outlined above. I have seen and examined the patient for 25 minutes and we have spent more than 50% of the time in repeat and detailed counseling about the patient's condition, its natural course history with out and as much as can be predicted with surgery and re-review of various surgical treatment options. In conclusion, Yared Arteaga requested we proceed with the above suggested surgery and are willing to accept risks and limitations of the suggested surgery as nature of the disease process and our best attempts at treatment for the condition. Thank you again for allowing us to be part of your patient's care. Please don't hesitate to contact me if you have any further questions. Signed and authenticated by: allyssa Graf DO Linphil[facility] [address] [facility], [address] [address] Follow-up: 2 weeks post op Patient Education (Informational booklet, instructions, etc) given at today's appointment: Yes .ED:Patient Education: Y Medications Reviewed: yes In our visit today Ms. Arteaga and I have had a chance to go over my understanding of the patient's current condition, the natural course history without intervention and various interventional options. Questions were invited and answered, and the patient wishes to proceed as outlined above. I will be sure to keep you updated afterMs. Chandler returns here for further follow-up. Thank you again for your referral. Please do not hesitate to contact me if you have any further questions. Signed and authenticated by: Ronaldo Lynn [facility] [address] [facility], [address] [address]
[~2021-07-02 07:27] MED LIST changes: +ACETAMINOPHEN TAB 500 MG TAB PO PRN; +DEXAMETHASONE SOD PHOSPHATE 4 MG/ML 1 ML VIAL IV ONE; +GABAPENTIN 300 MG CAP PO PRN; +HYDROmorphone 0.5 MG/0.5 ML SYRINGE IVP PRN; -LACTATED RINGERS 1,000 ML IV SCH; +ONDANSETRON 4 MG/2 ML VIAL IVP PRN; +TRANEXAMIC ACID 1,000 MG in SODIUM CHLORIDE 0.9% 100 ML IVPB PRN
[2021-07-02] MEDS ORDERED: VANCOMYCIN 1,750 MG in SODIUM CHLORIDE 0.9% 500 ML 500 ML IVPB ONE (08:15)
[2021-07-02] MEDS: LACTATED RINGERS 1,000 ML IV SCH ×2 (08:28→08:46)
[2021-07-02 08:30] LABS: Glucose,Whole Blood 273 mg/dL (75-99)
[2021-07-02] MEDS: ONDANSETRON 4 MG/2 ML VIAL IVP ONE ×2 (08:49→15:54)
[2021-07-02] MEDS ORDERED: ALBUTEROL HFA INHALER INHALATION ONE (08:50)
[2021-07-02] MEDS ORDERED: KETOROLAC 15 MG/ML 1 ML VIAL ONE (08:50)
[2021-07-02] MEDS ORDERED: ROCURONIUM 10 MG/ML (5 ML VIAL) IV ONE (08:50)
[2021-07-02] MEDS ORDERED: LABETALOL 5 MG/ML VIAL MDV ONE (08:50)
[2021-07-02] MEDS ORDERED: .fentaNYL (PF) 50 MCG/ML 2 ML AMP ONE (08:50)
[2021-07-02] MEDS ORDERED: SUCCINYLCHOLINE CHLORIDE VIAL 200 MG/10 ML VIAL IV ONE (08:50)
[2021-07-02] MEDS ORDERED: SODIUM CHLORIDE 0.9% 100 ML BAG ONE (08:50)
[2021-07-02] MEDS ORDERED: INSULIN ASPART (NovoLOG) 100 UNIT/ML VIAL SQ ONE ×2 (08:50→13:20)
[2021-07-02] MEDS ORDERED: MIDAZOLAM 2 MG/2 ML VIAL ONE (08:50)
[2021-07-02] MEDS ORDERED: diphenhydrAMINE 50 MG/ML 1 ML VIAL ONE (08:50)
[2021-07-02] MEDS ORDERED: INSULIN REGULAR 100 UNIT/ML VIAL (IV) ONE (08:50)
[2021-07-02] MEDS ORDERED: TRANEXAMIC ACID 1,000 MG/10 ML VIAL ONE (08:50)
[2021-07-02] MEDS ORDERED: HYDROmorphone (PF) 1 MG/ML ONE (08:50)
[2021-07-02] MEDS ORDERED: PROPOFOL 10 MG/ML 20 ML VIAL IV ONE (08:50)
[2021-07-02] MEDS ORDERED: NEOSTIGMINE 1 MG/ML 10 ML VIAL ONE (08:50)
[2021-07-02] MEDS ORDERED: GLYCOPYRROLATE 0.2 MG/ML 2 ML VIAL ONE (08:50)
[2021-07-02] MEDS ORDERED: KETAMINE 10 MG/ML 20 ML VIAL ONE (08:50)
[2021-07-02] MEDS ORDERED: LIDOCAINE 1% INJ 10MG/ML (20 ML MDV) ONE (08:50)
[2021-07-02] MEDS ORDERED: TRANEXAMIC ACID 1,000 MG in SODIUM CHLORIDE 0.9% 100 ML IVPB ONE (09:36)
[2021-07-02] MEDS ORDERED: INSULIN REGULAR 100 UNIT/ML VIAL (IV) IV ONE (09:40)
[2021-07-02 09:48] LABS: Glucose,Whole Blood 244 mg/dL (75-99)
[2021-07-02] MEDS ORDERED: THROMBIN (BOVINE) 5,000 UNIT VIAL TOPICAL ONE (09:48)
[2021-07-02] MEDS ORDERED: GELATIN SPONGE,ABSORB (LARGE) 1 EACH SPONGE MISCELLANE ONE (09:48)
[2021-07-02] MEDS ORDERED: BUPIVACAINE (PF) 0.25% 30 ML VIAL SQ ONE ×2 (09:48→12:08)
[2021-07-02] MEDS ORDERED: INSULIN REGULAR 100 UNIT in SODIUM CHLORIDE 0.9% 100 ML IV ONE (10:30)
[2021-07-02 11:39] LABS: Glucose,Whole Blood 268 mg/dL (75-99)
[2021-07-02] MEDS ORDERED: VANCOMYCIN 1,000 MG VIAL MISCELLANE ONE (11:49)
[2021-07-02] MEDS ORDERED: LACTATED RINGERS 1,000 ML IV ONE (12:00)
[2021-07-02] MEDS ORDERED: CYCLOBENZAPRINE 5 MG TAB PO PRN (12:22)
[2021-07-02] MEDS ORDERED: HYDROcodone/APAP 5-325MG 1 EACH TAB PO PRN (12:22)
[2021-07-02] MEDS ORDERED: SENNOSIDES-DOCUSATE SODIUM 1 EACH TAB PO PRN (12:22)
[2021-07-02] MEDS ORDERED: HYDROcodone/APAP 10-325MG 1 EACH TAB PO PRN (12:22)
[2021-07-02] MEDS ORDERED: VANCOMYCIN IV PER PHARMACY 1 EACH MISC MISCELLANE PRN (12:25)
--- NOTE | 2021-07-02 12:58 | FL ---
EXAMINATION TYPE: FL guidance operating room DATE OF EXAM: 07/02/2021 HISTORY: Fluoroscopy time 12 seconds of fluoroscopy provided. IMPRESSION: 1. Fluoroscopy time.
--- NOTE | 2021-07-02 13:00 | XR ---
EXAM TYPE: LUMBAR SPINE X RAY SERIES COMPARISON: NONE HISTORY: Hardware placement TECHNIQUE: 4 views are submitted. FINDINGS: Surgical instruments are seen along the posterior margin of the vertebral column as part of a intraop erative procedure Resolution limited by technique. IMPRESSION: See above
[2021-07-02 13:02] LABS: Glucose,Whole Blood 283 mg/dL (75-99)
[2021-07-02] MEDS ORDERED: hydrALAZINE HCL 20 MG/ML 1 ML VIAL ONE (13:17)
--- NOTE | 2021-07-02 13:19 | P.PN ---
Progress Note - Text Progress Note Date: 07/02/21 Brief Post Op: Surgeon: Lesia Assistants: Viraj Pre op dx; L4 to S1 stenosis Post op dx: L4 to S1 stenosis Procedure: L4-S1 decompressive laminectomy Anesthesia: GETA EBL: 100 ML Fluids: 1500 cc UO: 250 cc Dispo: Stable to PACU Post op Plan: Encourage ambulation IS 10x/hr Teds/SCDs Pain control No brace needed for ambulation Record Drain output PT/OT
[2021-07-02] MEDS ORDERED: hydrALAZINE HCL 20 MG/ML 1 ML VIAL IV ONE (13:20)
[2021-07-02] MEDS ORDERED: ONDANSETRON 4 MG/2 ML VIAL IVP ONE (13:21)
[2021-07-02] MEDS ORDERED: METOPROLOL TARTRATE 5 MG/5 ML VIAL IVP ONE ×2 (14:04→14:06)
[2021-07-02 16:43] LABS: Glucose,Whole Blood 339 mg/dL (75-99)
[2021-07-02] MEDS: INSULIN ASPART (NovoLOG) 100 UNIT/ML VIAL SQ SCH ×3 (17:43→22:20)
[2021-07-02] MEDS: ACETAMINOPHEN TAB 325 MG TAB PO SCH (17:43)
[2021-07-02 17:51] LABS: African American GFR (CKD) >90 (>60 ml/min/1.73 sqM); Non-African American GFR(CKD) >90 (>60 ml/min/1.73 sqM)
[2021-07-02] MEDS: lisinopriL 10 MG TAB PO SCH (19:55)
[2021-07-02] MEDS: PREGABALIN 75 MG CAP PO SCH (19:55)
[2021-07-02] MEDS: VANCOMYCIN 1,750 MG in SODIUM CHLORIDE 0.9% 500 ML 500 ML IVPB SCH (19:55)
[2021-07-02] MEDS: oxyCODONE-APAP 10-325MG 1 EACH TAB PO PRN (20:03)
[2021-07-02 20:09] LABS: Glucose,Whole Blood 356 mg/dL (75-99)
[2021-07-02] MEDS: ALBUTEROL NEBULIZED 2.5 MG/3 ML INHALATION SCH (21:56)
[2021-07-02] MEDS: DICYCLOMINE 20 MG TAB PO SCH ×2 (22:35→22:36)
--- NOTE | 2021-07-03 00:02 | CONS ---
CONSULTATION This 40-year-old white female has lower extremity weakness, radiculopathy, status post lumbar fusion stenosis. She is very confused and in a lot of pain. She is sitting up in bed. Vital signs reviewed. Cardiovascular S1, S2. Lungs clear. GI soft. She has drains coming out of her lower back. ASSESSMENT: 1. Status post lumbar fusion. 2. Asthma. 3. Angina. 4. Chronic obstructive pulmonary disease. 5. Diabetes mellitus. 6. Fibromyalgia. 7. Gastroesophageal reflux disease. 8. Dyslipidemia. 9. Hypertension. 10.Osteoarthritis. 11.Rheumatoid arthritis. 12.Sleep apnea. Continue with current treatments. Home medicines will be reordered. She is medically stable at this time. MMODL / IJN: [id number] /
[2021-07-03] MEDS: ACETAMINOPHEN TAB 325 MG TAB PO SCH ×4 (00:20→19:51)
[2021-07-03] MEDS: oxyCODONE-APAP 10-325MG 1 EACH TAB PO PRN ×3 (03:24→17:49)
[2021-07-03] MEDS: VANCOMYCIN 1,750 MG in SODIUM CHLORIDE 0.9% 500 ML 500 ML IVPB SCH ×3 (04:43→19:38)
--- NOTE | 2021-07-03 07:13 | P.PN ---
Subjective Progress Note Date: 07/03/21 Principal diagnosis: Lumbar Stenosis Pt s/e this AM. She is sitting up in bed eating a snack. She states pain yesterday and last night that was somewhat uncomfortable she c/o pain in her LLE but her jam hoes had slipped down and were causing compression on her leg. Once this was removed she felt better however she is c/o some numbness now in the LLE. She states the pain is better however in her legs. She has been up to chair but not to bathroom yet. She still has a Bradford in place. She wants to get up and move more. She denies any f/c/sob/cp at this time. She denies any bowel bladder issues or any perineal numbness/tingling. She has deep and superficial drains inplace. Objective - Vital Signs Vital signs: Vital Signs Temp 98.4 F 07/03/21 02:00 Pulse 75 07/03/21 02:16 Resp 18 07/03/21 02:16 BP 167/77 07/03/21 02:00 Pulse Ox 98 07/03/21 02:00 Intake & Output 07/02/21 07/03/21 07/03/21 18:59 06:59 18:59 Intake Total 2218 Output Total 1750 3150 Balance 468 -3150 Weight 113.4 kg Intake: IV 2100 Oral 118 Output: Drainage 50 150 Bilateral Back 50 150 Urine 1440 3000 Estimated Blood Loss 260 Other: Voiding Method Indwelling Catheter Indwelling Catheter - Exam Patient is alert and oriented 3 appears well-nourished well-hydrated is in no acute distress. They does not appear septic. Some tenderness to palpation around the incision There is no edema or ballottement sign. Lower extremities with 4+ out of 5 strength in all major muscle groups no focal deficits with some improvement since preop. Mostly due to postsurgical state Upper extremities show 5/5 strength in all major muscle groups. There is FROM that is painless of the b/l UE and LE in all major joints. They are intact to light touch sensation in C5 to T1 as well as L2 to S1 nerve distribution. Patient has palpable dorsalis pedis was posterior tibial pulses. Compartments are soft and compressible. Patient shows a negative Homans, Fitch's, negative Babinski's negative clonus bilaterally. negative straight leg raise bilaterally. No tensioning signs. Cranial nerves II through XII are grossly intact. Overall alignment is well-maintained in the sagittal coronal planes. Incision is clean dry and intact dressing clean dry and intact. Superficial d rain head minimal output overnight only about 10 mL in the drain total. Deep drain was emptied and currently has about 50 mL of serosanguineous type - Labs CBC & Chem 7: 07/02/21 17:00 Labs: Abnormal Lab Results - Last 24 Hours (Table) 07/02/21 07/02/21 07/02/21 Range/Units 08:24 09:47 11:38 POC Glucose (mg/dL) 273 H 244 H 268 H (75-99) mg/dL 07/02/21 07/02/21 07/02/21 Range/Units 13:01 16:41 20:08 POC Glucose (mg/dL) 283 H 339 H 356 H (75-99) mg/dL Assessment and Plan Assessment: 40-year-old female postoperative day 1 L4 to S1 decompressive laminectomy 1. L4-S1 spondylosis 2.L4-S1 HNP 3. L4-S1 stenosis severe 4. LLE radiculopathy 5. LLE weakness 6. Low back pain Plan: -Appreciate application security consultant and team management. -Activity: Ambulate QID, OOB all meals, up and about, limit lifting bending twisting to less than 5 lbs. Use walker or cane if needed for stability. -Daily PT/OT, increase ambulation strength and balance. -Brace when up and about, not needed in bed or chair -Pain control: Willing to decrease pain medication as needed increase Flexeril to 10 mg 3 times a day -Meds: reviewed -GI ppx: senna, Miralax -DC bradford when up and about, bedside commode if needed -DVT PPX: OK to restart Heparin tonight -Hygiene: Shower today. Maintain dressing clean and dry. Meticulous cleaning after BMs away from incision site -Drains: Maintain for now. Record output -Encourage IS 10x/hr -Dispo: Pending
[2021-07-03 07:33] LABS: Glucose,Whole Blood 246 mg/dL (75-99)
[2021-07-03] MEDS: INSULIN DETEMIR (LEVEMIR) 100 UNIT/ML SYR SQ SCH (07:57)
[2021-07-03] MEDS: INSULIN ASPART (NovoLOG) 100 UNIT/ML VIAL SQ SCH ×7 (07:57→21:37)
[2021-07-03] MEDS: DICYCLOMINE 20 MG TAB PO SCH ×4 (07:58→23:08)
[2021-07-03] MEDS: MULTIVITAMINS, THERA 1 EACH TAB PO SCH (07:58)
[2021-07-03] MEDS: PANTOPRAZOLE 40 MG TABLET PO SCH ×2 (07:58→17:46)
[2021-07-03] MEDS: PREGABALIN 75 MG CAP PO SCH ×2 (07:58→19:38)
[2021-07-03] MEDS: ESCITALOPRAM 20 MG TAB PO SCH (07:59)
[2021-07-03] MEDS: CYCLOBENZAPRINE 5 MG TAB PO PRN ×2 (08:18→15:50)
[2021-07-03 09:12] LABS: HGB 12.5 g/dL (12.0-15.0); MCH 31.2 pg (27.0-32.0); MCHC 32.1 g/dL (32.0-37.0); MCV 97.3 fL (80.0-97.0); Mean Platelet Volume 10.7 fL (9.5-12.2); Platelet Count 265 X 10*3/uL (140-440); RBC 4.01 X 10*6/uL (4.10-5.20); RDW 12.9 % (11.5-14.5)
[2021-07-03] MEDS: ALBUTEROL NEBULIZED 2.5 MG/3 ML INHALATION SCH ×4 (09:14→20:13)
[2021-07-03 11:50] LABS: Basophils # (A) 0.09 X 10*3/uL (0.00-0.10); Basophils % (A) 0.5 %; Eosinophils # (A) 0.08 X 10*3/uL (0.04-0.35); Eosinophils % (A) 0.4 %; Lymphocytes # (A) 4.25 X 10*3/uL (0.90-5.00); Lymphocytes % (A) 21.4 %; Monocytes # (A) 1.28 X 10*3/uL (0.20-1.00); Monocytes % (A) 6.4 %; Neutrophils # (A) 14.07 X 10*3/uL (1.80-7.70); Neutrophils % (A) 70.6 %
[2021-07-03 12:11] LABS: Glucose,Whole Blood 277 mg/dL (75-99)
[2021-07-03 16:52] LABS: Glucose,Whole Blood 243 mg/dL (75-99)
[2021-07-03] MEDS: lisinopriL 10 MG TAB PO SCH (19:38)
[2021-07-03] MEDS: HYDROmorphone 0.5 MG/0.5 ML SYRINGE IVP PRN (19:39)
[2021-07-03 20:48] LABS: Glucose,Whole Blood 196 mg/dL (75-99)
[2021-07-04] MEDS: ACETAMINOPHEN TAB 325 MG TAB PO SCH ×5 (00:36→23:56)
[2021-07-04] MEDS: HYDROmorphone 0.5 MG/0.5 ML SYRINGE IVP PRN (00:37)
[2021-07-04] MEDS: VANCOMYCIN 1,750 MG in SODIUM CHLORIDE 0.9% 500 ML 500 ML IVPB SCH ×4 (04:24→23:57)
[2021-07-04] MEDS: LACTATED RINGERS 1,000 ML IV SCH (05:49)
[2021-07-04] MEDS: oxyCODONE-APAP 10-325MG 1 EACH TAB PO PRN ×4 (06:17→23:11)
[2021-07-04] MEDS: ALBUTEROL NEBULIZED 2.5 MG/3 ML INHALATION SCH ×4 (07:34→18:44)
[2021-07-04 07:36] LABS: Glucose,Whole Blood 294 mg/dL (75-99)
[2021-07-04] MEDS: INSULIN ASPART (NovoLOG) 100 UNIT/ML VIAL SQ SCH ×7 (08:20→21:36)
[2021-07-04] MEDS: INSULIN DETEMIR (LEVEMIR) 100 UNIT/ML SYR SQ SCH (08:20)
[2021-07-04] MEDS: MULTIVITAMINS, THERA 1 EACH TAB PO SCH (08:23)
[2021-07-04] MEDS: PANTOPRAZOLE 40 MG TABLET PO SCH ×2 (08:23→17:23)
[2021-07-04] MEDS: PREGABALIN 75 MG CAP PO SCH ×2 (08:23→21:36)
[2021-07-04] MEDS: CYCLOBENZAPRINE 5 MG TAB PO PRN ×3 (08:24→15:41)
[2021-07-04] MEDS: DICYCLOMINE 20 MG TAB PO SCH ×4 (08:25→21:37)
[2021-07-04] MEDS: ESCITALOPRAM 20 MG TAB PO SCH ×2 (08:25→08:29)
--- NOTE | 2021-07-04 10:19 | P.PN ---
Subjective Progress Note Date: 07/04/21 Principal diagnosis: Lumbar Stenosis Patient seen and examined she is doing okay today states some pain in her left leg still however is getting better. She denies any fever shows shortness breath or chest pain denies any perineal numbness or tingling states she has been up and about and walking. Objective - Vital Signs Vital signs: Vital Signs Temp 98.3 F 07/04/21 07:05 Pulse 80 07/04/21 07:05 Resp 15 07/04/21 08:00 BP 120/76 07/04/21 07:05 Pulse Ox 98 07/04/21 07:05 Intake & Output 07/03/21 07/04/21 07/04/21 18:59 06:59 18:59 Intake Total 240 Output Total 700 75 Balance -460 -75 Intake: Oral 240 Output: Drainage 75 Bilateral Back 75 Urine 700 Other: Voiding Method Indwelling Catheter # Voids 1 2 # Bowel Movements 0 0 - Exam Patient is alert and oriented 3 appears well-nourished well-hydrated is in no acute distress. They does not appear septic. Some tenderness to palpation around the incision There is no edema or ballottement sign. Lower extremities with 4+ out of 5 strength in all major muscle groups no focal deficits with some improvement since preop. Mostly due to postsurgical state Upper extremities show 5/5 strength in all major muscle groups. There is FROM that is painless of the b/l UE and LE in all major joints. They are intact to light touch sensation in C5 to T1 as well as L2 to S1 nerve distribution. Patient has palpable dorsalis pedis was posterior tibial pulses. Compartments are soft and compressible. Patient shows a negative Homans, Fitch's, negative Babinski's negative clonus bilaterally. negative straight leg raise bilaterally. No tensioning signs. Cranial nerves II through XII are grossly intact. Overall alignment is well-maintained in the sagittal coronal planes. Incision is clean dry and intact dressing clean dry and intact. Superficial drain head minimal output overnight only about 10 mL in the drain total. Deep drain was emptied and currently has about 50 mL of serosanguineous type Drains were pulled today as well as dressing changed incision is clean and dry. - Constitutional General appearance: Present: morbidly obese - Labs CBC & Chem 7: 07/03/21 06:03 07/02/21 17:00 Labs: Abnormal Lab Results - Last 24 Hours (Table) 07/03/21 07/03/21 07/03/21 Range/Units 06:03 12:06 16:43 Immature Gran # 0.13 H (0.00-0.04) X 10*3/uL Neutrophils # 14.07 H (1.80-7.70) X 10*3/uL Monocytes # 1.28 H (0.20-1.00) X 10*3/uL POC Glucose (mg/dL) 277 H 243 H (75-99) mg/dL 07/03/21 07/04/21 Range/Units 20:47 07:27 Immature Gran # (0.00-0.04) X 10*3/uL Neutrophils # (1.80-7.70) X 10*3/uL Monocytes # (0.20-1.00) X 10*3/uL POC Glucose (mg/dL) 196 H 294 H (75-99) mg/dL Assessment and Plan Assessment: 40-year-old female postoperative day 2 L4 to S1 decompressive laminectomy 1. L4-S1 spondylosis 2.L4-S1 HNP 3. L4-S1 stenosis severe 4. LLE radiculopathy 5. LLE weakness 6. Low back pain Plan: -Appreciate income tax consultant and team management. -Activity: Ambulate QID, OOB all meals, up and about, limit lifting bending twisting to less than 5 lbs. Use walker or cane if needed for stability. -Daily PT/OT, increase ambulation strength and balance. -Brace when up and about, not needed in bed or chair -Pain control: Willing to decrease pain medication as needed increase Flexeril to 10 mg 3 times a day -Meds: reviewed -GI ppx: senna, Miralax -DC bradford when up and about, bedside commode if needed -DVT PPX: OK to restart Heparin tonight -Hygiene: Shower today. Maintain dressing clean and dry. Meticulous cleaning after BMs away from incision site -Drains: Removed today -Encourage IS 10x/hr -Dispo: Plan on DC home with home care tomorrow
[2021-07-04 12:16] LABS: Glucose,Whole Blood 165 mg/dL (75-99)
--- NOTE | 2021-07-04 12:50 | P.OP ---
Date of Procedure: 07/02/21 Preoperative Diagnosis: 1. L4-S1 spondylosis 2.L4-S1 HNP 3. L4-S1 stenosis L>R 4. LLE radiculopathy 5. LLE weakness 6. Low back pain Postoperative Diagnosis: 1. L4-S1 spondylosis 2.L4-S1 HNP 3. L4-S1 stenosis L>R 4. LLE radiculopathy 5. LLE weakness 6. Low back pain Procedure(s) Performed: 1. L4-S1 bilateral laminectomy, foraminotomy, and partial medial facetectomy 2. Use of intraoperative microscope Anesthesia: ELLIOTTA Surgeon: Ronaldo Graf [employer] Supervisor #1: Meño Jim (Was present and necessary for the entire case. ) Estimated Blood Loss (ml): 200 IV fluids (ml): 1,100 Urine output (ml): 250 Pathology: none sent Condition: stable Disposition: PACU Indications for Procedure: 40 yo female presented with c/o low back pain and LE weakness as well as radicular pain L>R. She progressed to the point of not being able to walk as well. She was followed in office and underwent a multitude of different conservative measures including PT, HEP, Medications, Supplements, injections and others of which did not help her sx. Her MRI showed severe stenosis L4-S1 with spondylosis as well. After long discussions she decided that she wants to avoid a fusion and would like a decompressive laminectomy. We discussed the risks and benefits of all procedures and she was comfortable with them. We discussed alternatives but at this point she has done most and they have not worked and she needs to be decompressed. She was willing to proceed with surgery. Description of Procedure: The patient was seen and examined in the preoperative area. All preoperative protocols were followed. Informed consent was obtained risks and benefits of the procedure were discussed at length. Risks including bleeding infection damage to the surrounding tissue and risk of reoperation were discussed with the patient. Risk of anesthesia up to and including was a discussed with the patient. These are outlined in the risk review. They were willing to accept these risks and all of the risks of surgery. The patient was given a weight- based dose of antibiotics in the form of vancomycin weight-based dose. The patient was seen and evaluated by the anesthesia team who deemed them fit for surgery. The site was marked, the patient was willing to proceed with the procedure. The patient was transferred to the operative suite by the Department of anesthesia. They were then drifted off to sleep by the department anesthesia and GETA was performed. The patient tolerated this well. Tomlin catheter was placed by nursing staff, atraumatically. Once confirmation of lines and ventilation the patient was transferred to a prone Curry Nba table very carefully. All bony prominences including wrists, elbows, axilla, chest, hips, and thighs, and feet were padded very well. Special attention was paid to the genitalia and these were padded accordingly. SCDs were placed on bilateral lower extremities and were connected. Arms were well padded and placed on arm boards up and out in the 90/90 position. Once in position, again we confirmed good ventilation capabilities and that lines were running appropriately. The patient's lumbar spine was then exposed. 1010s were placed outlining the incision site. Standard alcohol was used to clean the incision site and allowed to dry. C-arm was used to biomark the patient and confirm level for incision which was marked with a skin marker. Operative briefing was performed with all teams and everyone in agreement to proceed. The patient was then prepped and draped in a normal sterile fashion. Timeout was then performed and all parties were in agreement with the procedure to be performed. Midline skin incision was then made over the previously bio marked area with a skin knife. Blunt dissection taken through the subcutaneous tissue until the lumbosacral fascia was identified and cleaned with a Borrego. Midline fasciotomy was then made and subperiosteal dissection taken down and over the lamina of L4- L5 and S1. The facet joints were exposed. Intraoperative microscope was then brought in and Versatrac retractor placed. We then performed bilateral laminectomy of L4-L5 and S1. To a curet was used to release the ligamentum above and below and at each level and then the lamina was removed atraumatically. Kerrison rongeurs were then used to clean up the lateral gutters. Lateral foraminotomies were performed at L4 and L5 respectively. This was done with Kerrison rongeur. Once this was completed a Santana ball probe was used and passed along the path of the nerves to ensure that there were free and there was good decompression of all nerve roots as well as centrally at all for L5 and S1. We then copiously irrigated the wound with 3 L of saline with antibiotic followed by 3 L of saline without antibiotic. We then cleaned the edges of the dura and any ligamentum in the posterior lateral gutter. We then inspected the dura there were no injuries and no CSF leak. We then proceeded to drain placement were placed a deep drain on the right-hand side and a superficial drain on the left-hand side we placed 2 g of vancomycin powder deep within the wound Surgicel was placed over the dura FloSeal was used for hemostasis of the posterior lateral gutters. We then closed the fascia with #1 Vicryl in a [id number] fashion this was a watertight closure. We then in a layered fashion closed the subcutaneous tissue which was very deep with 0 Vicryl in 3 layers over a superficial drain. We then close the superficial subcu tissue with 2-0 Vicryl and the skin edges were approximated with breann. We then clean the wound with alcohol and dressed sterilely with an operative foam dressing. We then placed drain sponges around the drains the drains were sewn in for security and dressed with sponges and Tegaderms. The patient was transferred back to their hospital bed atraumatically. Drain continued to hold suction and were in good position. Patient was then awakened and extubated by the department of anesthesia having tolerated the procedure very well with no complications. They were transferred to the postoperative care unit in stable condition.
[2021-07-04 17:32] LABS: Glucose,Whole Blood 117 mg/dL (75-99)
[2021-07-04 21:12] VITALS: RESP 16; TEMP 98.6
[2021-07-04 21:12] LABS: Glucose,Whole Blood 197 mg/dL (75-99)
[2021-07-04] MEDS: lisinopriL 10 MG TAB PO SCH (21:36)
[2021-07-04] MEDS: CEPHALEXIN 500 MG CAP PO SCH (21:37)
[2021-07-05] MEDS: ACETAMINOPHEN TAB 325 MG TAB PO SCH ×2 (04:53→13:08)
[2021-07-05] MEDS: LACTATED RINGERS 1,000 ML IV SCH (04:53)
[2021-07-05] MEDS: oxyCODONE-APAP 10-325MG 1 EACH TAB PO PRN ×2 (05:42→13:06)
[2021-07-05 07:22] LABS: Glucose,Whole Blood 288 mg/dL (75-99)
[2021-07-05 07:57] VITALS: BP 131/64; PULSE 71
[2021-07-05] MEDS: ALBUTEROL NEBULIZED 2.5 MG/3 ML INHALATION SCH ×2 (08:01→12:10)
[2021-07-05] MEDS: INSULIN DETEMIR (LEVEMIR) 100 UNIT/ML SYR SQ SCH (08:24)
[2021-07-05] MEDS: INSULIN ASPART (NovoLOG) 100 UNIT/ML VIAL SQ SCH ×4 (08:24→13:08)
[2021-07-05] MEDS: PREGABALIN 75 MG CAP PO SCH (08:26)
[2021-07-05] MEDS: CEPHALEXIN 500 MG CAP PO SCH (08:26)
[2021-07-05] MEDS: DICYCLOMINE 20 MG TAB PO SCH ×2 (08:27→13:06)
[2021-07-05] MEDS: MULTIVITAMINS, THERA 1 EACH TAB PO SCH (08:27)
[2021-07-05] MEDS: PANTOPRAZOLE 40 MG TABLET PO SCH (08:27)
[2021-07-05] MEDS: ESCITALOPRAM 20 MG TAB PO SCH (08:27)
[2021-07-05] MEDS ORDERED: VANCOMYCIN TROUGH DUE 1 EACH MISC MISCELLANE ONE (11:00)
[2021-07-05 12:14] LABS: Glucose,Whole Blood 155 mg/dL (75-99)
--- NOTE | 2021-07-05 12:27 | P.DS ---
Providers Date of admission: 07/03/21 15:18 Expected date of discharge: 07/05/21 Attending physician: Ronaldo Graf DO Consults: 07/02/21 12:28 Consult Physician Routine Consulting Provider: Jonah Johnson Reason/Comments: Medical Management s/p Decompression, microdiscectomy and foraminotomy of L Do you want consulting provider notified?: Yes Primary care physician: Jonah Johnson [facility] Course: Date of admission: 07/02/2021 Date of discharge: 07/04/2021 Admission diagnosis: : 1. L4-S1 spondylosis 2.L4-S1 HNP 3. L4-S1 stenosis L>R 4. LLE radiculopathy 5. LLE weakness 6. Low back pain Discharge diagnosis: Same Attending physician: Dr. Graf Surgical procedures: L4-S1 bilateral laminectomy, foraminotomy, and partial medial facetectomy Brief history: Patient is a 40-year-old female with a history of L4-S1 spondylosis; L4-S1 herniated nucleus pulposus; left lower extremity radiculitis; left lower cavity weakness; low back pain. At this point patient has failed conservative treatment measures and has opted to proceed with a elective L4-S1 bilateral laminectomy, foraminotomy and partial medial facetectomy. Hospital course: Details of patient's surgery can be found in operative report. Patient tolerated the procedure well and was subsequently transported to orthopedic floor. Patient's orthopeidc and medical care was provided daily. Patient had daily laboratory tests performed for evaluation of overall blood counts. Patient had daily physical therapy to include strengthening range of motion as well as education with walker ambulation. Patient was noted to have a relatively uneventful postoperative course. Patient reported satisfactory pain control with oral pain medications by postoperative day 3. Patient showed satisfactory progress with physical therapy. Patient moved steadily through the program and had no difficulty meeting the goals by postoperative day 3. Given patient's otherwise satisfactory course and having met physical therapy goals, plan is to discharge patient [home] on postoperative day 3. Discharge condition/disposition: Patient will be discharged home in stable condition. Discharge medications: Instructions are given on resumption of patient's normal daily medications per primary care recommendation, in addition patient will be prescribed Rogers 7.5 mg/325 mg; Duricef; Colace; Flexeril. Spine Discharge and Recovery Instructions Medications: See medication list All medication refills should be obtained through your primary care doctor or your clinic spine surgeon. Please discuss prescription refills at your follow up appointment. Do not call the hospital for medication refills. Dressing: Leave your dressing in place for a total of 5 days post operatively. Then you may remove your dressing and leave open to air. Keep the area clean and if not able to keep area clean, then cover with sterile gauze and tape. Showering: You may shower 3 days after your procedure allowing soap and water to run over incision. Do not scrub. Do not soak. Blot dry. Follow up: Please confirm a follow up appointment with your surgeon 3 weeks post operatively. Please make an appointment to follow up with your PCP in 1-2 weeks after surgery for evaluation 3 phase, 3-week plan POST OP WEEKS 1-3 1. Lifting/carrying/pushing/pulling limited to less than 5 pounds. 2. Do not sit for longer than 15 minutes at one time. Get up and walk around. Prolonged sitting is NOT advised. If you lay down, see if you can tolerate laying down on you front (belly side) 3. Walk for periods of 15 minutes = 1 mile but no longer; do it multiple t imes times each day. 4. Ice your low back after activity. POST OP WEEKS 3-6 1. Lifting limited to less than 20 pounds. 2. Do not sit for longer than 30 minutes at a time. Frequently change positions. Use a sit-to stand workstation or take frequent breaks from sitting if you have returned to work. 3. Walk for 30 minutes each day. If possible, do these three or more times a day POST OP WEEKS 6+ At your 6-week appointment we will give you a physical therapy referral to focus on a core stabilization and strengthening program. You should also work on leg & buttock strengthening, hamstring & quadriceps stretching, and continue a low impact aerobic activity program such as swimming, walking, or riding a stationary bicycle. During the initial 6 weeks after your surgery, you are at the highest risk of re-injuring your spine. You should generally avoid BLTs (bending, lifting and twisting combination motions) and follow the above guidelines to reduce the chance of reinjury. You can anticipate post op appointments in our office at approximately 3 weeks and 6 weeks after your surgery. INCISION CARE: If your incision is not draining you do NOT need to cover it with a dressing. Keep your incision clean, dry and intact. In most cases, we apply skin glue, breann or sutures to the incision at the time of surgery. This will be like a crust or have the appearance of a scab and will fall off in time on its own. The stitches or breann need to be removed at 3 weeks post op appointment. You may begin to shower 3 days after surgery (this allows the glue to kidd well). However, please avoid scrubbing the incision site or peeling off any of the skin glue. This will ensure optimal healing of your incision. Also, during this time avoid soaking the incision area in water - this includes swimming pools, hot tubs or baths. No ointments, lotions or oils on the incision until your surgeon allows. Leave breann, sutures or glue in place. Neurological dysfunction that comes on suddenly can also be a sign of a stroke. Below some common symptoms of a stroke are listed: B - balance difficulty such as sudden onset walking or leaning to one side - NEW E - eye problem such as sudden double vision or trouble seeing on one side - NEW F - Facial weakness or numbness on one side - NEW A - Arm or leg weakness or numbness on one side - NEW S - Slurred speech or difficulty with word finding - NEW T - Time is BRAIN! Call 911 as soon as you recognize these symptoms Diet: Consume a regular diet rich in vegetables and lean protein such as chicken or fish. You should consume in a ratio of approximately 20% fats|40% carbohydrates|40%protein. Vegetables, sweet potatoes, brown rice or quinoa are examples of good carbohydrates. Chips, white bread, cookies and sweets/sugar are examples of bad carbohydrates. Limit your bad carbs, go wild with good carbs. "Life's Simple 7" Guidelines as per [place] [employer] These will help you reclaim your life after surgery and shear helper in your recovery, keeping in mind your restrictions. (1) Get Active. Physical activity can help people lose weight, control high blood pressure and cholesterol, feel emotionally better, and sleep better. (2) Control Cholesterol. Avoid a diet high in saturated fat, trans fat, & cholesterol. Limit whole milk & cream, ice cream, butter, egg yolks, processed meats (like sausage and hot dogs), and fatty meats. Choose healthy foods that are low in saturated fat, trans fat and cholesterol which include: Fruits and vegetables, fiber rich grain products (like whole grain pasta and brown rice), lean meat such as chicken, fish, nuts, seeds, and legumes. (3) Eat Better. Eat small portions. Shop at the grocery with a list and do not stray from it. Tips for a healthy diet include: Limit sodium intake to less than 1500mg daily, avoid prepackaged, processed, and fast foods, choose a diet rich in fruits, vegetables, and whole grain, high fiber foods, and limit saturated & cholesterol in your diet. (4) Manage Blood Pressure. If you have high blood pressure, you should have a cuff at home so that you can check your blood pressure regularly. Be sure you have a good cuff. An arm one is generally better than a wrist one. Bring the cuff to a doctor's appointment to validate that the measurements that your cuff are taking are accurate. Take your blood pressure twice daily when you are sitting down and relaxing. Record the numbers in a log and bring this log with you to your doctors' appointments. (5) Lose Weight if your BMI is above 25. A healthy BMI is between 19-25. To calculate Your BMI, you may use a Standard BMI Calculator on the NIH BMI website: <www.nhlbi.nih.gov/guidelines/obesity/BMI/bmicalc.htm>. Weigh oneself daily. If you are overweight, set a goal to lose weight. A pound a week loss if needed is a good target. (6) Reduce Blood Sugar. Limit foods and liquids with "added sugars." (Added sugars include sucrose, fructose, glucose, maltose, dextrose, high fructose corn syrup, corn syrup, concentrated fruit juice and honey). (7) Stop Smoking. If you smoke, quitting smoking is one of the best things that you can do for your health. Smoking increases your risk of heart attack, stroke, and peripheral vascular disease, which is a build-up of plaque in your arteries. Please discard all the cigarettes and lighters in your house. Have a plan for what you will do when you have the urge to smoke. Direct and second- hand smoke shortens your life as well as the lives of your family, friends and others around you. For your health and the health of those around you, please consider quitting! Proper Bending Body Mechanics: Maintain a wide stance with one foot slightly in front of the other. Keep your back straight. Bend utilizing the strength in your hips and knees. Do not bend at the waist. Maintain the lifted object at your waist-level close to your body. Avoid lifting weight that causes immediately pain or pain anywhere in the body afterwards. Smoking/Nicotine If there was ever one thing that you could do to increase your overall health, decrease your risk of cardiovascular problems by about 39% the second you make the choice, it is to STOP SMOKING. Your body's most instant gratification is the second you stop smoking. We have all heard the studies, read the articles but it is true, smoking is extremely bad for your overall health, and moreover it is detrimental to your bone health. Nicotine, IN ANY FORM, kills bone cells, prevents your body from healing fractures, and significantly prolongs healing after surgery. In spine surgery specifically, it increases your risk of not healing your bones to create a fusion and increases your risk of having a revision surgery due to this up to 60%. I know it is hard. I know it feels impossible. But there are ways. Take control of your life. We are here to help you through it. And when you are ready, ask us and we can direct you to help if you desire. Use the START Plan to Quit Smoking (please visit the Helpguide.org website listed below for more information): S = Set a quit date. Choose a date within the next 2 weeks, so you have enough time to prepare without losing your motivation to quit. If you mainly smoke at work, quit on the weekend, so you have a few days to adjust to the change. T = Tell family, friends, and co-workers that you plan to quit. Let your friends and family in on your plan to quit smoking and tell them you need their support and encouragement to stop. Look for a quit jennifer who wants to stop smoking as well. You can help each other get through the rough times. A = Anticipate and plan for the challenges you'll face while quitting. Most people who begin smoking again do so within the first 3 months. You can help yourself make it through by preparing ahead for common challenges, such as nicotine withdrawal and cigarette cravings. R = Remove cigarettes and other tobacco products from your home, car, and work. Throw away all your cigarettes (no emergency pack!), lighters, ashtrays, and matches. Wash your clothes and freshen up anything that smells like smoke. Shampoo your car, clean your drapes and carpet, and steam your furniture. T = Talk to your doctor about getting help to quit. Your doctor can prescribe medication to help with withdrawal and suggest other alternatives. If you can't see a doctor, you can get many products over the counter at your local pharmacy or grocery store, including the nicotine patch, nicotine lozenges, and nicotine gum. Resources for Quitting Smoking: <https://www.[place].gov/documents/[facility]/Quit_Tobacco_Resources_for_patients_313 480_7.pdf> Supplementation: Take recommended dosages of Vitamin D and Calcium to help fortify your bones and help them to heal. See your health maintenance packet for dosages and recommended levels. DVT/VTE prophylaxis: You will be given compression stockings from the hospital. Wear these daily for the first two weeks after surgery. You may take them off at night. You may be prescribed a medication to help thin your blood. Take this as directed. If you are not prescribed this medication, early and frequent ambulation has been shown to be the best prophylaxis to deep vein thrombosis and sequelae related to this event. Assessment: 1. L4-S1 spondylosis 2.L4-S1 HNP 3. L4-S1 stenosis L>R 4. LLE radiculopathy 5. LLE weakness 6. Low back pain Procedures: 1. L4-S1 bilateral laminectomy, foraminotomy, and partial medial facetectomy Patient Condition at Discharge: Good Plan - Discharge Summary Discharge Rx Participant: Yes New Discharge Prescriptions: New HYDROcodone/APAP 7.5-325MG [Rogers 7.5] 1 each PO Q6HR PRN #21 tab PRN Reason: Pain Docusate [Colace] 100 mg PO DAILY #30 capsule cefaDROXiL [Duricef] 500 mg PO Q12HR 5 Days #10 cap Cyclobenzaprine [Flexeril] 5 mg PO TID #24 tablet No Action Lisinopril [Prinivil] 10 mg PO HS Pregabalin [Lyrica] 150 mg PO BID oxyCODONE HCL/ACETAMINOPHEN [Percocet 10-325 mg] 1 tab PO Q6HR PRN PRN Reason: Pain Ondansetron [Zofran] 4 mg PO Q8HR PRN #8 tab PRN Reason: Nausea And Vomiting Dicyclomine [Bentyl] 20 mg PO QID Insulin Glargine,Hum.rec.anlog [Lantus Solostar] 40 unit SQ QAM INSULIN LISPRO (humaLOG) [humaLOG] 10 units SQ TID Ibuprofen [Motrin] 800 mg PO TID INSULIN LISPRO (humaLOG) [humaLOG] 16 units SQ ACHS PRN PRN Reason: Blood Sugar - High Dulaglutide [Trulicity] 0.75 mg SQ TU Escitalopram Oxalate [Lexapro] 20 mg PO QAM Albuterol Sulfate [Proair Hfa] 2 puff INHALATION QID Omeprazole [PriLOSEC] 20 mg PO AC-BID L.acidoph,Paracasei, B.lactis [Probiotic] 1 each PO DAILY Multivitamins, Thera [Multivitamin (formulary)] 1 tab PO DAILY Discharge Medication List Lisinopril [Prinivil] 10 mg PO HS 02/13/16 [History] Pregabalin [Lyrica] 150 mg PO BID 12/08/17 [History] oxyCODONE HCL/ACETAMINOPHEN [Percocet 10-325 mg] 1 tab PO Q6HR PRN 12/08/17 [History] Ondansetron [Zofran] 4 mg PO Q8HR PRN #8 tab 03/13/20 [Rx] Dicyclomine [Bentyl] 20 mg PO QID 11/30/20 [History] INSULIN LISPRO (humaLOG) [humaLOG] 10 units SQ TID 11/30/20 [History] Insulin Glargine,Hum.rec.anlog [Lantus Solostar] 40 unit SQ QAM 11/30/20 [History] Omeprazole [PriLOSEC] 20 mg PO AC-BID 11/30/20 [History] INSULIN LISPRO (humaLOG) [humaLOG] 16 units SQ ACHS PRN 03/15/21 [History] Ibuprofen [Motrin] 800 mg PO TID 03/15/21 [History] Dulaglutide [Trulicity] 0.75 mg SQ TU 05/07/21 [History] Escitalopram Oxalate [Lexapro] 20 mg PO QAM 05/21/21 [History] Albuterol Sulfate [Proair Hfa] 2 puff INHALATION QID 06/24/21 [History] L.acidoph,Paracasei, B.lactis [Probiotic] 1 each PO DAILY 06/24/21 [History] Multivitamins, Thera [Multivitamin (formulary)] 1 tab PO DAILY 06/24/21 [History] Cyclobenzaprine [Flexeril] 5 mg PO TID #24 tablet 07/05/21 [Rx] Docusate [Colace] 100 mg PO DAILY #30 capsule 07/05/21 [Rx] HYDROcodone/APAP 7.5-325MG [Rogers 7.5] 1 each PO Q6HR PRN #21 tab 07/05/21 [Rx] cefaDROXiL [Duricef] 500 mg PO Q12HR 5 Days #10 cap 07/05/21 [Rx] Follow up Appointment(s)/Referral(s): [facility], [NON-STAFF] - 1 Week Activity/Diet/Wound Care/Special Instructions: Spine Discharge and Recovery Instructions Date of Surgery: 07/02/2021 Diagnosis: Lumbar stenosis severe L4 to S1 Procedure: L4-S1 decompressive laminectomy Medications: See list All medication refills should be obtained through your primary care doctor or your clinic spine surgeon. Please discuss prescription refills at your follow up appointment. Do not call the hospital for medication refills. Dressing: Leave your dressing in place for a total of 3 days post operatively. Then you may remove your dressing and leave open to air. Keep the area clean and if not able to keep area clean, then cover with sterile gauze and tape. Brace: Where brace while up and about do not wear while sleeping or in the shower Showering: You may shower 3 days after your procedure allowing soap and water to run over incision. Do not scrub. Do not soak. Blot dry. Follow up: Please confirm a follow up appointment with your surgeon 2 weeks post operatively. Please make an appointment to follow up with your PCP in 1-2 weeks after surgery for evaluation 3 phase, 3-week plan POST OP WEEKS 1-3 1. Lifting/carrying/pushing/pulling limited to less than 5 pounds. 2. Do not sit for longer than 15 minutes at one time. Get up and walk around. Prolonged sitting is NOT advised. If you lay down, see if you can tolerate laying down on you front (belly side) 3. Walk for periods of 15 minutes = 1 mile but no longer; do it multiple times times each day. 4.Ice your low back after activity. POST OP WEEKS 3-6 1. Lifting limited to less than 20 pounds. 2. Do not sit for longer than 30 minutes at a time. Frequently change positions. Use a sit-to stand workstation or take frequent breaks from sitting if you have returned to work. 3. Walk for 30 minutes each day. If possible, do these three or more times a day POST OP WEEKS 6+ At your 6-week appointment we will give you a physical therapy referral to focus on a core stabilization and strengthening program. You should also work on leg & buttock strengthening, hamstring & quadriceps stretching, and continue a low impact aerobic activity program such as swimming, walking, or riding a stationary bicycle. During the initial 6 weeks after your surgery, you are at the highest risk of re-injuring your spine. You should generally avoid BLTs (bending, lifting and twisting combination motions) and follow the above guidelines to reduce the chance of reinjury. You can anticipate post op appointments in our office at approximately 3 weeks and 6 weeks after your surgery. INCISION CARE: If your incision is not draining you do NOT need to cover it with a dressing. Keep your incision clean, dry and intact. In most cases, we apply skin glue, breann or sutures to the incision at the time of surgery. This will be like a crust or have the appearance of a scab and will fall off in time on its own. The stitches or breann need to be removed at 3 weeks post op appointment. You may begin to shower 3 days after surgery (this allows the glue to kidd well). However, please avoid scrubbing the incision site or peeling off any of the skin glue. This will ensure optimal healing of your incision. Also, during this time avoid soaking the incision area in water - this includes swimming pools, hot tubs or baths. No ointments, lotions or oils on the incision until your surgeon allows. Leave breann, sutures or glue in place. Neurological dysfunction that comes on suddenly can also be a sign of a stroke. Below some common symptoms of a stroke are listed: B - balance difficulty such as sudden onset walking or leaning to one side - NEW E - eye problem such as sudden double vision or trouble seeing on one side - NEW F - Facial weakness or numbness on one side - NEW A - Arm or leg weakness or numbness on one side - NEW S - Slurred speech or difficulty with word finding - NEW T - Time is BRAIN! Call 911 as soon as you recognize these symptoms Diet: Consume a regular diet rich in vegetables and lean protein such as chicken or fish. You should consume in a ratio of approximately 20% fats|40% carbohydrates|40%protein. Vegetables, sweet potatoes, brown rice or quinoa are examples of good carbohydrates. Chips, white bread, cookies and sweets/sugar are examples of bad carbohydrates. Limit your bad carbs, go wild with good carbs. "Life's Simple 7" Guidelines as per [place] [employer] These will help you reclaim your life after surgery and shear helper in your recovery, keeping in mind your restrictions. (1) Get Active. Physical activity can help people lose weight, control high blood pressure and cholesterol, feel emotionally better, and sleep better. (2) Control Cholesterol. Avoid a diet high in saturated fat, trans fat, & cholesterol. Limit whole milk & cream, ice cream, butter, egg yolks, processed meats (like sausage and hot dogs), and fatty meats. Choose healthy foods that are low in saturated fat, trans fat and cholesterol which include: Fruits and vegetables, fiber rich grain products (like whole grain pasta and brown rice), lean meat such as chicken, fish, nuts, seeds, and legumes. (3) Eat Better. Eat small portions. Shop at the grocery with a list and do not stray from it. Tips for a healthy diet include: Limit sodium intake to le ss than 1500mg daily, avoid prepackaged, processed, and fast foods, choose a diet rich in fruits, vegetables, and whole grain, high fiber foods, and limit saturated & cholesterol in your diet. (4) Manage Blood Pressure. If you have high blood pressure, you should have a cuff at home so that you can check your blood pressure regularly. Be sure you have a good cuff. An arm one is generally better than a wrist one. Bring the cuff to a doctor's appointment to validate that the measurements that your cuff are taking are accurate. Take your blood pressure twice daily when you are sitting down and relaxing. Record the numbers in a log and bring this log with you to your doctors' appointments. (5) Lose Weight if your BMI is above 25. A healthy BMI is between 19-25. To calculate Your BMI, you may use a Standard BMI Calculator on the NIH BMI website: <www.nhlbi.nih.gov/guidelines/obesity/BMI/bmicalc.htm>. Weigh oneself daily. If you are overweight, set a goal to lose weight. A pound a week loss if needed is a good target. (6) Reduce Blood Sugar. Limit foods and liquids with "added sugars." (Added sugars include sucrose, fructose, glucose, maltose, dextrose, high fructose corn syrup, corn syrup, concentrated fruit juice and honey). (7) Stop Smoking. If you smoke, quitting smoking is one of the best things that you can do for your health. Smoking increases your risk of heart attack, stroke, and peripheral vascular disease, which is a build-up of plaque in your arteries. Please discard all the cigarettes and lighters in your house. Have a plan for what you will do when you have the urge to smoke. Direct and second- hand smoke shortens your life as well as the lives of your family, friends and others around you. For your health and the health of those around you, please consider quitting! Proper Bending Body Mechanics: Maintain a wide stance with one foot slightly in front of the other. Keep your back straight. Bend utilizing the strength in your hips and knees. Do not bend at the waist. Maintain the lifted object at your waist-level close to your body. Avoid lifting weight that causes immediately pain or pain anywhere in the body afterwards. Smoking/Nicotine If there was ever one thing that you could do to increase your overall health, decrease your risk of cardiovascular problems by about 39% the second you make the choice, it is to STOP SMOKING. Your body's most instant gratification is the second you stop smoking. We have all heard the studies, read the articles but it is true, smoking is extremely bad for your overall health, and moreover it is detrimental to your bone health. Nicotine, IN ANY FORM, kills bone cells, prevents your body from healing fractures, and significantly prolongs healing after surgery. In spine surgery specifically, it increases your risk of not healing your bones to create a fus ion and increases your risk of having a revision surgery due to this up to 60%. I know it is hard. I know it feels impossible. But there are ways. Take control of your life. We are here to help you through it. And when you are ready, ask us and we can direct you to help if you desire. Use the START Plan to Quit Smoking (please visit the [email or web address] website listed below for more information): S = Set a quit date. Choose a date within the next 2 weeks, so you have enough time to prepare without losing your motivation to quit. If you mainly smoke at work, quit on the weekend, so you have a few days to adjust to the change. T = Tell family, friends, and co-workers that you plan to quit. Let your friends and family in on your plan to quit smoking and tell them you need their support and encouragement to stop. Look for a quit jennifer who wants to stop smoking as well. You can help each other get through the rough times. A = Anticipate and plan for the challenges you'll face while quitting. Most people who begin smoking again do so within the first 3 months. You can help yourself make it through by preparing ahead for common challenges, such as nicotine withdrawal and cigarette cravings. R = Remove cigarettes and other tobacco products from your home, car, and work. Throw away all your cigarettes (no emergency pack!), lighters, ashtrays, and matches. Wash your clothes and freshen up anything that smells like smoke. Shampoo your car, clean your drapes and carpet, and steam your furniture. T = Talk to your doctor about getting help to quit. Your doctor can prescribe medication to help with withdrawal and suggest other alternatives. If you can't see a doctor, you can get many products over the counter at your local pharmacy or grocery store, including the nicotine patch, nicotine lozenges, and nicotine gum. Resources for Quitting Smoking: <https://www.[place].gov/documents/[facility]/Quit_Tobacco_Resources_for_patients_313 480_7.pdf> Supplementation: Take recommended dosages of Vitamin D and Calcium to help fortify your bones and help them to heal. See your health maintenance packet for dosages and recommended levels. DVT/VTE prophylaxis: You will be given compression stockings from the hospital. Wear these daily for the first two weeks after surgery. You may take them off at night. You may be prescribed a medication to help thin your blood. Take this as directed. If you are not prescribed this medication, early and frequent ambulation has been shown to be the best prophylaxis to deep vein thrombosis and sequelae related to this event. Discharge Disposition: HOME SELF-CARE
--- NOTE | 2021-07-05 18:28 | P.PN ---
Subjective Progress Note Date: 07/05/21 Principal diagnosis: 1. L4-S1 spondylosis 2.L4-S1 HNP 3. L4-S1 stenosis L>R 4. LLE radiculopathy 5. LLE weakness 6. Low back pain Patient was seen at bedside this morning sitting up in bed ready to go home. Patient says her pain is under much better control today. She says she still does have a little bit of pain in her back, however much has subsided over the past couple days. Patient denies chest pain, fever, shortness breath, nausea, vomiting, Ahsan, loss of bladder control. Objective - Vital Signs Vital signs: Vital Signs Temp 98.6 F 07/05/21 07:00 Pulse 71 07/05/21 07:00 Resp 16 07/05/21 08:00 BP 131/64 07/05/21 07:00 Pulse Ox 94 L 07/05/21 07:00 Intake & Output 07/04/21 07/05/21 07/05/21 18:59 06:59 18:59 Intake Total 200 Balance 200 Intake: IV 0 Lactated Ringers 1,000 ml 0 @ 20 mls/hr IV .Q24H [facility] Rx#:[id number] Oral 200 Other: Voiding Method Indwelling Catheter Toilet Toilet # Voids 1 2 - Exam Focusedspine Foam tape is present over incision along with 4 x 4's. Incisions are clean, dry, intact. Negative for any fluctuance, purulence, drainage. Negative for ecchymosis, erythema. There is minimal tenderness to palpation to the incision s. Sensation is equal, symmetric, bilaterally intact throughout. Neurovascular status intact bilaterally in upper and lower extremities. Radial pulses intact, 2+ bilaterally. Capillary refill under 3 seconds bilaterally and digits of the upper extremities. Negative Homans bilaterally - Labs CBC & Chem 7: 07/03/21 06:03 07/02/21 17:00 Labs: Abnormal Lab Results - Last 24 Hours (Table) 07/04/21 07/04/21 07/05/21 Range/Units 17:30 21:10 07:15 POC Glucose (mg/dL) 117 H 197 H 288 H (75-99) mg/dL 07/05/21 Range/Units 12:13 POC Glucose (mg/dL) 155 H (75-99) mg/dL Assessment and Plan Assessment: 1. L4-S1 spondylosis 2.L4-S1 HNP 3. L4-S1 stenosis L>R 4. LLE radiculopathy 5. LLE weakness 6. Low back pain Postop day #3 status post - L4-S1 bilateral laminectomy, foraminotomy, and partial medial facetectomy Plan: 1. L4-S1 spondylosis; L4-S1 HNP; L4-S1 stenosis L>R; LLE radiculopathy; LLE weakness; Low back pain - surgery performed 07/02/2021 - L4-S1 bilateral laminectomy, foraminotomy, and partial medial facetectomy. Patient stable at bedside this morning. Plan discharge home today. 2. Appreciate medical management 3. Pain management - [place]; Flexeril; gabapentin 4. GI prophylaxis - Colace 5. Encourage incentive spirometer use 6. PT/OT - weightbearing as tolerated. Use a back brace while up and about 7. Discharge planningplan discharge home today Time with Patient: Less than 30
[2021-07-09] MEDS ORDERED: NON FORMULARY DRUG (Dulaglutide [Trulicity] 0.75 MG/0.5 ML Each) SQ SCH (17:45)
== END 2021-07-05 14:36 | disposition home or self-care (01) ==
LOC: OR 07:27 → 6NMEDSUR 13:18 → OR 07-03 15:18 → 6NMEDSUR 07-03 15:18
PROVIDERS: ADMIT Orthopaedic Surgery; ATTEND Orthopaedic Surgery
DX: M51.16 Intervertebral disc disorders with radiculopathy, lumbar region (principal); M47.817 Spondylosis without myelopathy or radiculopathy, lumbosacral region; M48.061 Spinal stenosis, lumbar region without neurogenic claudication; M51.17 Intervertebral disc disorders with radiculopathy, lumbosacral region; M62.82 Rhabdomyolysis; M79.7 Fibromyalgia; E11.43 Type 2 diabetes mellitus with diabetic autonomic (poly)neuropathy; K31.84 Gastroparesis; J44.9 Chronic obstructive pulmonary disease, unspecified; K21.9 Gastro-esophageal reflux disease without esophagitis; E78.5 Hyperlipidemia, unspecified; I10 Essential (primary) hypertension; M19.90 Unspecified osteoarthritis, unspecified site; M06.9 Rheumatoid arthritis, unspecified; N80.9 Endometriosis, unspecified; I83.90 Asymptomatic varicose veins of unspecified lower extremity; R41.3 Other amnesia; G47.33 Obstructive sleep apnea (adult) (pediatric); I20.9 Angina pectoris, unspecified; G43.909 Migraine, unspecified, not intractable, without status migrainosus; K58.0 Irritable bowel syndrome with diarrhea; R74.8 Abnormal levels of other serum enzymes; F31.9 Bipolar disorder, unspecified; F41.9 Anxiety disorder, unspecified; E66.01 Morbid (severe) obesity due to excess calories; Z68.41 Body mass index [BMI] 40.0-44.9, adult; Z20.822 Contact with and (suspected) exposure to COVID-19; Z87.891 Personal history of nicotine dependence; Z87.440 Personal history of urinary (tract) infections; Z87.01 Personal history of pneumonia (recurrent); Z85.41 Personal history of malignant neoplasm of cervix uteri; R29.6 Repeated falls; Z91.81 History of falling; Z71.6 Tobacco abuse counseling; Z71.89 Other specified counseling; Z71.3 Dietary counseling and surveillance; Z79.4 Long term (current) use of insulin; Z79.1 Long term (current) use of non-steroidal anti-inflammatories (NSAID); Z79.899 Other long term (current) drug therapy; Z90.49 Acquired absence of other specified parts of digestive tract; Z88.8 Allergy status to other drugs, medicaments and biological substances; Z80.9 Family history of malignant neoplasm, unspecified
CPT/HCPCS: 94640 ×2; 97162; 81025; 82565; 85025; 87635; 72020; 63047; 69990; G0378 ×3; C1762 ×2; J2250; J3370 ×2; J0330; J0360; J1200; J2710; J0690; J2405; J2001; J3010; J1170 ×3; J1885; J2704; J1790

== ENCOUNTER → 2021-07-25 | Outpatient (CLI) | payer OTHER ==
[2021-07-25 14:35] LABS: Basophils % (A) 0.9 %; Eosinophils # (A) 0.24 X 10*3/uL (0.04-0.35); Eosinophils % (A) 2.1 %; HCT 41.5 % (37.2-46.3); HGB 13.6 g/dL (12.0-15.0); Lymphocytes # (A) 3.82 X 10*3/uL (0.90-5.00); Lymphocytes % (A) 33.3 %; MCH 31.2 pg (27.0-32.0); MCHC 32.8 g/dL (32.0-37.0); MCV 95.2 fL (80.0-97.0); Mean Platelet Volume 10.3 fL (9.5-12.2); Monocytes # (A) 0.76 X 10*3/uL (0.20-1.00); Monocytes % (A) 6.6 %; Neutrophils # (A) 6.49 X 10*3/uL (1.80-7.70); Neutrophils % (A) 56.7 %; Platelet Count 384 X 10*3/uL (140-440); RBC 4.36 X 10*6/uL (4.10-5.20); RDW 12.2 % (11.5-14.5); WBC 11.46 X 10*3/uL (4.50-10.00)
[2021-07-25 15:16] LABS: African American GFR (CKD) 127.4 (60.0-200.0); Anion Gap 12.9 mmol/L (10.00-18.00); BUN/Creat Ratio 8.36 Ratio (12.00-20.00); Blood Urea Nitrogen 5.5 mg/dL (9.0-27.0); C Reactive Protein 3.7 mg/dL (0.00-0.80); Calcium 9.3 mg/dL (8.7-10.3); Carbon Dioxide 22.6 mmol/L (20.0-27.5); Non-African American GFR(CKD) 109.9 (60.0-200.0)
[2021-07-25 17:36] LABS: HIV 2 AB Non-Reactive (Non-Reactive); HIV AB P24 Non-Reactive (Non-Reactive); HIV P24 AG Non-Reactive (Non-Reactive)
== END | disposition home or self-care (01) ==
LOC: LABWHC1 08:38
PROVIDERS: ATTEND Internal Medicine Infectious Disease
DX: B20 Human immunodeficiency virus [HIV] disease (principal)
CPT/HCPCS: 36415; 80048; 84450; 84460; 85025; 86140; 87390; 87536

== ENCOUNTER → 2021-11-13 | Outpatient (CLI) | payer OTHER ==
--- NOTE | 2021-11-13 15:25 | FL ---
EXAMINATION TYPE: FL barium swallow w SBFT DATE OF EXAM: 11/13/2021 CLINICAL HISTORY: Gastroparesis. Vomiting, reflux and sore throat TECHNIQUE: A double contrast UGI study is performed with small bowel follow through. A total fluoros copic time of 2 minutes and 30 seconds. 49 spot images and 10 x-rays were sent to PACS. 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 The esophagus shows normal motility and emptying into the stomach. Questionable very small transient hiatal hernia seen at the time of the study. The stomach shows normal distensibility and peristalsis. No evidence of gastric mass or definite ulc er disease. Mild to moderate gastroesophageal reflux is seen at the time of the study. The duodenal b ulb and sweep are grossly unremarkable. The small bowel study shows delayed transit to the colon. Serial images were obtained up to 3 hours a nd 45 minutes without reaching the colon and the patient refused to complete the study. There is norm al mucosal fold pattern throughout the visualized small bowel. There is no evidence of any stricture or filling defect noted. IMPRESSION: No convincing evidence of gastroparesis. Questionable very small transient hiatal hernia with mild-to -moderate gastroesophageal reflux. Delayed transit to the colon up to 3 hours and 45 minutes without reaching the colon. The small bowel study is not complete as the patient refused to complete the stud y. Unremarkable visualized small bowel otherwise. Recommend correlation with upper GI endoscopy results. Further CT assessment can be considered if cli nically required.
== END ==
LOC: RADFLMAIN 08:37
PROVIDERS: ATTEND Family Medicine
DX: K31.84 Gastroparesis (principal)
CPT/HCPCS: 74220

== ENCOUNTER → 2021-11-21 | Outpatient (CLI) | payer OTHER ==
[~2021-11-21] MED LIST changes: -ACETAMINOPHEN TAB 500 MG TAB PO PRN; -DEXAMETHASONE SOD PHOSPHATE 4 MG/ML 1 ML VIAL IV ONE; -GABAPENTIN 300 MG CAP PO PRN; -HYDROmorphone 0.5 MG/0.5 ML SYRINGE IVP PRN; +KETOROLAC 30 MG/ML 1 ML VIAL IM NR; +KETOROLAC 30 MG/ML 1 ML VIAL IM STA; +LIDOCAINE (PF) 10 MG/ML 2 ML VIAL IM STA; -ONDANSETRON 4 MG/2 ML VIAL IVP PRN; -TRANEXAMIC ACID 1,000 MG in SODIUM CHLORIDE 0.9% 100 ML IVPB PRN
[2021-11-21 08:23] VITALS: BP 163/91; PULSE 69; RESP 18; TEMP 98.3
--- NOTE | 2021-11-21 09:01 | P.PN ---
Subjective Progress Note Date: 11/21/21 Principal diagnosis: A 40 yr old female with a history of severe and chronic low back pain secondary to lumbar degenerative disc diseases and lumbar spondylosis with facet arthropathy presents today for evaluation status post bilateral TF CRISTIAN L5-S1 in May,. Pt states she experienced 0% pain relief status post procedure. She also states she underwent surgery in June 2021 which provided her with no pain relief and constant lower back pain, 9 out of 10 in intensity sore, achy in the mid to lower aspects of her lumbar spine with radiation of pain to the lower extremities bilaterally. Patient also complains of a new onset of left foot numbness and tingling. Pain is provoked with 5 minutes of sitting and standing in one position. Patient has purchased a wheelchair for herself because she experiences excruciating pain with ambulation. Patient has minimal pain relief with medications (Percocet, Motrin, Lyrica), ice, physical therapy of which she is currently an but is making the pain worse, massage therapy integrated with physical therapy, repositioning and rest. Interventional pain procedures completed include BL TFESI L5-S1 Patient is currently on Percocet, Lyrica, Motrin. Patient denies any side effects of the medication(s), denies excessive drowsiness or sleepiness, denies suicidal ideation and reports that the current pain medication is helping to control the pain and improve activities of daily living. Patient denies any motor or sensory deficits. Patient denies any fever or night sweats, denies any change in the bowel movements or urination. Physical Examination: -Constitutional: Cooperative. Not in acute distress . -HEENT: Neck is supple. No lymphadenopathy. No thyromegaly. Normal thyroid size. Eyes: No ptosis , no icterus, no photophobia. ENT: No auditory deficits. Normal oropharynx. No Thrush. - Respiratory: Chest clear to auscultations bilaterally. No wheezing. No rhonchi. - Cardiovascular: Regular rate and rhythm. S1 / S2 , no S3 , no S4. - Gastrointestinal: Abdomen soft no tenderness. Bowel sounds positive in all four quadrants. No organomegaly. - Genitourinary: Deferred. - Neurologic: Cranial nerve II to XII intact. No focal neurological deficits. - Psychatric: Alert & oriented x 3. Matching mood & appropriate affect. Judgment and insight intact. - Lymphatic: No Lymphadenopathy. - Musculoskeletal: Cervical spine: Muscle bulk/ tone/ strength in the bilateral upper extremities normal. Facet loading test cervical area positive. Lumbar spine: Motor bulk/ tone/ strength lower extremities , thigh and legs : 5/5 Deep tendon reflexes : Normal Knee Jerk. Normal Ankle Jerk . Vertebral body tenderness to palpation over L3, L4 Lumbar Facet Loading Test positive Straight Leg Raise: positive at 30 degrees right side/ left side Gaenslen's Test positive Sacral spine : Severe tenderness over the Sacroiliac joint: right side / left side Range of motion: Flexion of the lumbar spine <60 degrees Range of motion: Extension of the lumbar spine <20 degrees Gaenslen's Test positive Angel test: positive right side / left side Assessment and plan: Chronic low back pain secondary to lumbar degenerative disc disease , lumbar spondylosis with facet arthropathy without myelopathy Recommendation of LESI L3-L4. May need a series of injections, up to 3 within a six-month period, for optimal pain relief. Risks, benefits of procedure discussed and patient verbalized understanding. Denies anticoagulant use. Admits to a medical history of diabetes. Protocol for discontinuation/ continuation of medications torsten procedure discussed. All patient questions answered MAPS reviewed and it was appropriate. I have spent 31 minutes on patient care today. Dr Cueva was available by phone for the evaluation of this patient. The time was used to review the medical records including relevant urine studies and Prescription history (MAPs), review of the available imaging, evaluation and examination of the patient, coordination of care with the medical staff and if applicable referring physicians, as well as creation of the medical record Objective - Vital Signs Vital signs: Vital Signs Temp 98.3 F 11/21/21 08:03 Pulse 69 11/21/21 08:03 Resp 18 11/21/21 08:03 BP 163/91 11/21/21 08:03 Pulse Ox 98 11/21/21 08:03 Intake & Output 11/20/21 11/21/21 11/21/21 18:59 06:59 18:59 Weight 110.223 kg PQRS Measure Charge Sheet Mode of Arrival: Ambulatory - Pain Location Bilateral Medial Back Non-Pharmacological Interventions: Inactivity, Position/Reposition Pharmacological Interventions: Epidural PQRS Narrative: Smoking Status Former smoker Blood Pressure 163/91 Pain Intensity [Bilateral 9 Medial Back] Scale Used Numeric (1 - 10) Hx Alcohol Use (MH) No Home Medications: Ambulatory Orders Lisinopril [Prinivil] 10 mg PO HS 02/13/16 Pregabalin [Lyrica] 150 mg PO BID 12/08/17 oxyCODONE HCL/ACETAMINOPHEN [Percocet 10-325 mg] 1 tab PO Q6HR PRN 12/08/17 Ondansetron [Zofran] 4 mg PO Q8HR PRN #8 tab 03/13/20 Dicyclomine [Bentyl] 20 mg PO QID 11/30/20 INSULIN LISPRO (humaLOG) [humaLOG] 10 units SQ TID 11/30/20 Insulin Glargine,Hum.rec.anlog [Lantus Solostar] 40 unit SQ QAM 11/30/20 Omeprazole [PriLOSEC] 20 mg PO AC-BID 11/30/20 INSULIN LISPRO (humaLOG) [humaLOG] 16 units SQ ACHS PRN 03/15/21 Ibuprofen [Motrin] 800 mg PO TID 03/15/21 Dulaglutide [Trulicity] 0.75 mg SQ TU 05/07/21 Escitalopram Oxalate [Lexapro] 20 mg PO QAM 05/21/21 Albuterol Sulfate [Proair Hfa] 2 puff INHALATION QID 06/24/21 L.acidoph,Paracasei, B.lactis [Probiotic] 1 each PO DAILY 06/24/21 Multivitamins, Thera [Multivitamin (formulary)] 1 tab PO DAILY 06/24/21 Cyclobenzaprine [Flexeril] 5 mg PO TID #24 tablet 07/05/21 Docusate [Colace] 100 mg PO DAILY #30 capsule 07/05/21 HYDROcodone/APAP 7.5-325MG [[place] 7.5] 1 each PO Q6HR PRN #21 tab 07/05/21 cefaDROXiL [Duricef] 500 mg PO Q12HR 5 Days #10 cap 07/05/21
== END ==
LOC: PNWHC3 07:15
PROVIDERS: ATTEND Specialist
DX: M47.816 Spondylosis without myelopathy or radiculopathy, lumbar region (principal); M51.36 Other intervertebral disc degeneration, lumbar region; G89.29 Other chronic pain; Z87.891 Personal history of nicotine dependence; E11.9 Type 2 diabetes mellitus without complications; Z79.4 Long term (current) use of insulin; Z88.8 Allergy status to other drugs, medicaments and biological substances
CPT/HCPCS: 99211

== ENCOUNTER 2021-12-12 10:28 | Day surgery (SDC) | payer OTHER ==
[2021-12-11 10:52] VITALS: BMI 42.1
[~2021-12-12 10:28] MED LIST changes: -KETOROLAC 30 MG/ML 1 ML VIAL IM NR; -KETOROLAC 30 MG/ML 1 ML VIAL IM STA; +LACTATED RINGERS 1,000 ML IV SCH; -LIDOCAINE (PF) 10 MG/ML 2 ML VIAL IM STA; +LIDOCAINE 1% (10MG/ML) FOR IV START INTRADERMA PRN
[2021-12-12 10:45] VITALS: TEMP 97.7
[2021-12-12 11:22] LABS: Glucose,Whole Blood 115 mg/dL (75-99)
[2021-12-12] MEDS ORDERED: methylPREDNISolone ACETATE 40 MG/ML 1 ML VIAL ONE (11:30)
[2021-12-12] MEDS ORDERED: MIDAZOLAM 2 MG/2 ML VIAL ONE (11:30)
[2021-12-12] MEDS ORDERED: fentaNYL (PF) 50 MCG/ML 2 ML AMP ONE (11:30)
[2021-12-12] MEDS ORDERED: IOPAMIDOL M200 10 ML VIAL ONE (11:30)
--- NOTE | 2021-12-12 11:53 | P.PCN ---
Date of Procedure: 12/12/21 Procedure(s) Performed: PREOP DIAGNOSIS: 1- Lumbar postlaminectomy syndrome.2-lumbar degenerative disc disease. 3-lumbar spondylosis with lumbar facet arthropathy POSTOP DIAGNOSIS: Same as preop diagnosis PROCEDURE: 1-Caudal epidural steroid injection with epidurolysis and epidurogram under fluoroscopic guidance. (Fluoroscopy images available in the radiology Department ) 2-caudal epidurogram. ANESTHESIA: Local with 1% lidocaine 3 ml ,and moderate sedation, with Versed 2 mg and fentanyl 100 g. EBL: Minimal. PROCEDURE INDICATION: The patient with post-laminectomy syndrome with low back pain and radiculopathy radiating down in both legs, here for a caudal epidural steroid injection with epidurolysis. PROCEDURE DESCRIPTION: The patient was seen and identified in the preoperative area. Risks, benefits, complications, and alternatives were discussed with the patient. The patient agreed to proceed with the procedure and signed the consent. IV was started, and vital signs were stable. Patient was taken to the OR and time out was completed. The patient was placed in the prone position on procedure table and a pillow was placed under the abdomen to reduce lumbar lordosis. The lumbosacral area was prepped and draped in the usual sterile fashion. Vital signs were closely monitored during the procedure. lateral view and the anterior-posterior plates of the sacrum were identified with infiltration of the area overlying the sacral hiatus with 1% lidocaine .A 17 gauge RK epidural needle was used to advance through the sacral hiatus into the caudal epidural space. Omnipaque 180 dye. 2cc was injected and the position of the needle was verified to be in the midline. A Racz catheter was introduced into the epidural space and was advanced towards the L5-S1 interspace under direct fluoroscopic guidance. Multiple passes were made with the catheter for lysis of epidural adhesions. Depo-Medrol 40 mg with 3ml of preservative free Lidocaine 1% and 5 ml of preservative free normal saline was injected slowly. Additional spread was seen to L4 under fluoroscopy. The needle and the catheter were withdrawn intact. EPIDUROGRAM: Omnipaque 180 mg dye 2 ml was injected with spread of the dye into the caudal epidural space and with spread cutoff at L5 prior to epidurolysis. Post epidurolysis dye 2 ml was injected and spread was seen to L3-4.There was further spread of the solution together with the dye above the L3 COMPLICATIONS: None. DISPOSITION / PLANS: The patient was placed in a supine position and transferred to the recovery area in a stable condition for observation and was discharged from the recovery room after meeting discharge criteria. Home discharge instructions given to the patient by the staff. The patient was reexamined prior to discharge. The patient will schedule a follow up in the clinic in 2-4 weeks.
[2021-12-12] MEDS ORDERED: IV FLUID CONTINUATION 1,000 ML IV ONE (11:55)
--- NOTE | 2021-12-12 12:07 | FL ---
EXAMINATION TYPE: FL guided pain mgmt statistic DATE OF EXAM: 12/12/2021 HISTORY: Fluoroscopy time 15 seconds of fluoroscopy provided. IMPRESSION: 1. Fluoroscopy time.
[2021-12-12 12:12] VITALS: RESP 18
[2021-12-12 12:23] VITALS: BP 135/70; PULSE 67
== END 2021-12-12 12:29 | disposition home or self-care (01) ==
LOC: ORPAIN 10:28
PROVIDERS: ATTEND Specialist
DX: M96.1 Postlaminectomy syndrome, not elsewhere classified (principal); M47.816 Spondylosis without myelopathy or radiculopathy, lumbar region; M51.36 Other intervertebral disc degeneration, lumbar region
CPT/HCPCS: 62323; 84703; J2250; J1030; J3010; Q9966; C1894; 99152

== ENCOUNTER → 2022-02-17 | Outpatient (CLI) | payer OTHER ==
[2022-02-17 14:26] LABS: HCT 42.9 % (37.2-46.3); HGB 13.5 g/dL (12.0-15.0); MCH 30.2 pg (27.0-32.0); MCHC 31.5 g/dL (32.0-37.0); Mean Platelet Volume 10.8 fL (9.5-12.2); NRBC Per 100 WBC 0 /100 WBCS (0.0-0.0); Platelet Count 375 X 10*3/uL (140-440); RBC 4.47 X 10*6/uL (4.10-5.20); RDW 12.8 % (11.5-14.5); WBC 14.67 X 10*3/uL (4.50-10.00)
[2022-02-17 15:00] LABS: Basophils % (A) 0.7 %; Eosinophils # (A) 0.28 X 10*3/uL (0.04-0.35); Eosinophils % (A) 1.9 %; Lymphocytes % (A) 38.2 %; Monocytes # (A) 0.81 X 10*3/uL (0.20-1.00); Monocytes % (A) 5.5 %; Neutrophils # (A) 7.74 X 10*3/uL (1.80-7.70); Neutrophils % (A) 52.7 %
[2022-02-17 15:59] LABS: ALT 20 U/L (8-44); AST 20 U/L (13-35); African American GFR (CKD) 125.2 (60.0-200.0); Albumin 3.5 g/dL (3.8-4.9); Albumin/Globulin Ratio 1.43 (1.60-3.17); Alkaline Phosphatase 61 U/L (41-126); BUN/Creat Ratio 9.37 Ratio (12.00-20.00); Blood Urea Nitrogen 6.4 mg/dL (9.0-27.0); Calcium 8.8 mg/dL (8.7-10.3); Carbon Dioxide 24.5 mmol/L (20.0-27.5); Chloride 101 mmol/L (96-109); Globulin 2.4 g/dL (1.6-3.3); Glucose 290 mg/dL (70-110); Sodium 136 mmol/L (135-145); Total Bilirubin <0.15 mg/dL (0.30-1.20); Total Protein 5.9 g/dL (6.2-8.2)
[2022-02-18 11:36] LABS: HIV-1 RNA Not detected (Not detected); HIV-1 RNA, Quant <40 Copies/mL (<40); LOG HIV Copies/mL <1.60 (<1.60)
[2022-02-18 12:51] LABS: T Helper Cell (CD4) >3000 cell/ul (443-1471); T Helper Cell (CD4) % 61 % (35-66); T Suppressor Cell (CD8) 1388 cell/ul (190-832); T Suppressor Cell (CD8) % 23 % (9-37); T4/T8 Ratio (CD4:CD8) 2.6 (1.0-3.7)
== END | disposition home or self-care (01) ==
LOC: LABWHC1 09:47
PROVIDERS: ATTEND Internal Medicine Infectious Disease
DX: Z20.6 Contact with and (suspected) exposure to human immunodeficiency virus [HIV] (principal)
CPT/HCPCS: 36415; 80053; 85025; 86360; 87536

== ENCOUNTER → 2022-08-05 | Outpatient (CLI) | payer OTHER ==
--- NOTE | 2022-08-05 08:31 | CT ---
EXAMINATION TYPE: CT lumbar spine wo con CT DLP: 2105.9 mGycm, Automated exposure control for dose reduction was used. DATE OF EXAM: 08/05/2022 6:53 AM COMPARISON: CT abdomen pelvis dated 06/22/2022.. CLINICAL INDICATION:Female, 41 years old with history of [id number], Low back pain TECHNIQUE: Multiple axial images were obtained from the midportion of T11 through the sacroiliac puma nts. Soft tissue and bone windows in coronal and sagittal planes were obtained and reviewed. Contrast used: none. Oral contrast used: none. FINDINGS: Alignment: There are 5 lumbar type vertebral bodies within normal alignment. Bone: No evidence of fracture is identified. Post surgical changes extending from L4 to L5 with bila teral laminectomies. Discs: T12-L1: No spinal canal or neural foraminal stenosis is identified. L1-L2: No spinal canal or neural foraminal stenosis is identified. L2-L3: No spinal canal or neural foraminal stenosis is identified. L3-L4: Osteophyte with disc bulge with at least mild to moderate spinal canal stenosis. Facet joint a rthropathy and osteophyte with at least mild bilateral neural foraminal stenosis. L4-L5: Disc bulge is present. Laminectomy changes are evident. No spinal canal stenosis. Facet joint arthropathy and osteophyte with at least moderate bilateral neural foraminal stenosis. L5-S1: No spinal canal stenosis. Facet joint arthropathy and osteophyte with at least moderate left and mild right neural foraminal stenosis. Other: None IMPRESSION: 1. No evidence of fracture of the lumbar spine. 2. Postsurgical changes L4 and L5. 3. Disc bulging and osteophyte at L3 to L4 resulting in [id number] spinal canal stenosis. 4. Multilevel disc degeneration changes resulting in neural foraminal stenosis as described above.
== END | disposition home or self-care (01) ==
LOC: RADCTMAIN 06:19
PROVIDERS: ATTEND Orthopaedic Surgery
DX: M51.26 Other intervertebral disc displacement, lumbar region (principal); M51.36 Other intervertebral disc degeneration, lumbar region; M48.061 Spinal stenosis, lumbar region without neurogenic claudication; M25.78 Osteophyte, vertebrae; M99.73 Connective tissue and disc stenosis of intervertebral foramina of lumbar region
CPT/HCPCS: 72131

== ENCOUNTER → 2022-08-29 | Outpatient (CLI) | payer OTHER ==
--- NOTE | 2022-08-31 14:02 | MR ---
EXAMINATION TYPE: MR lumbar spine wo/w con DATE OF EXAM: 08/29/2022 COMPARISON: CT lumbar spine August 05, 2022 HISTORY: Low back pain into jasvir lower extremities for years, hx of surgery July 02, 2021 TECHNIQUE: Multiplanar, multisequence images of the lumbar spine is performed without and with IV contrast, util izing 11 mL intravenous Gadavist FINDINGS: Sagittal images of the lumbar spine show vertebral body heights and alignment to appear sta ble and satisfactory. Multilevel disc desiccation is present. There is persistent moderate to severe disc space narrowing with heterogeneous more typed 2 endplate changes at L4-L5 level and mild to mode rate anterior spurring. And disc space heights otherwise are maintained. The conus medullaris is norm al in position and signal ending at L1-L2 disc space level. Mild to moderate anterior spurring L2-L3 level with heterogeneous moderate type II endplate changes is also present. No abnormal postcontrast enhancement is seen. Posterior decompression changes are noted. Axial images at T11-T12 level show focal left paracentral disc protrusion effacing the anterolateral thecal sac on image 39. Axial images at T12-L1 level show focal right paracentral disc protrusion mildly effacing the anterio r thecal sac on axial image 34. Axial images at L1-L2 level appear within normal limits. Axial images at L2-L3 level show mild broad-based disc bulge mildly effacing the anterior thecal sac along with mild facet arthropathy bilaterally. Patent bilateral neural foramina. Axial images at L3-L4 level mild to moderate broad-based disc bulge with left lateral disc protrusion component and [id number] facet arthropathy and ligamentum flavum hypertrophy bilaterally. Ther e is effacement of the anterior and posterior lateral thecal sac. There is mild to moderate left grea ter than right bilateral neural foraminal narrowing. Axial images at L4-L5 level due to mild/moderate broad-based posterior disc protrusion effacing the a nterior thecal sac along with mild facet arthropathy bilaterally. There are posterior laminectomy def ects and spinous process resection with enhancing scar tissue. Moderate right-sided neural foraminal narrowing. There is encroachment on the right L4 nerve axial image 11 and sagittal image 12 due to la teral disc protrusion component. There is mild left-sided neural foraminal narrowing. Axial images at L5-S1 level show mild/moderate left greater than right facet arthropathy. There is fo patricia left paracentral/foraminal disc protrusion effacing the anterolateral thecal sac and causing mode rate left sided neural foraminal narrowing. Right-sided neural foramina is patent. Effacement of the lateral recess is seen. Posterior laminectomy defects and spinous process resection is redemonstrated . No suspicious retroperitoneal findings are seen. IMPRESSION: Successful posterior decompression changes lower lumbar spine. Multilevel degenerative ch anges remain present as detailed above.
== END | disposition home or self-care (01) ==
LOC: RADMRIMAIN 08:46
PROVIDERS: ATTEND Orthopaedic Surgery
DX: M47.26 Other spondylosis with radiculopathy, lumbar region (principal)
CPT/HCPCS: 72158; A9585

== ENCOUNTER 2022-10-10 10:27 | Emergency (ER) | payer OTHER ==
[2022-10-10] MEDS ORDERED: MORPHINE SULFATE 4 MG/ML SYRINGE IVP STA (10:38)
[2022-10-10] MEDS ORDERED: ONDANSETRON 4 MG/2 ML VIAL IVP STA (10:38)
[2022-10-10 10:39] VITALS: RESP 18; TEMP 97.4
--- NOTE | 2022-10-10 10:55 | ED ---
General Adult HPI - General Chief complaint: Recheck/Abnormal Lab/Rx Stated complaint: post op Time Seen by Provider: 10/10/22 10:30 - History of Present Illness Initial comments: Patient is a 41-year-old female presenting to the emergency room via EMS with complaints of increase in chronic pain postoperatively worsening chronic nausea and vomiting along with numbness and tingling/radiculopathy to bilateral buttocks and upper region of her lower extremities. She reports preoperatively she only had neuropathy/radiculopathy in her left leg. She denies any injury or fall postoperatively. She underwent an L5-S1 fusion on 10/02/[address] Graf. She is on Percocet chronically for pain and has chronic co nstipation and is on . She reports worsening of her chronic constipation with only one small bowel movement surgery. She reports overall generalized malaise and upper abdominal pain but denies any chest pain, shortness of breath, dysuria, urinary frequency, ultrasound mental status, fever s or chills. She has not had any drainage swelling or complications to her incision site. In addition to her chronic symptoms and disc disease as indicated above she has a past medical history significant for asthma, COPD, diabetes, fibromyalgia, hypertension, hyperlipidemia, GERD, sleep apnea, cervical cancer, and migraines. - Related Data Home Medications Medication Instructions Recorded Confirmed lisinopriL [Prinivil] 10 mg PO HS 02/13/16 10/10/22 Dicyclomine [Bentyl] 20 mg PO QID 11/30/20 10/10/22 INSULIN LISPRO (humaLOG) [humaLOG] See Protocol SQ AC-TID PRN 11/30/20 10/10/22 Insulin Glargine,Hum.rec.anlog 50 unit SQ HS 11/30/20 10/10/22 [Lantus Solostar] Omeprazole [PriLOSEC] 20 mg PO BID 11/30/20 10/10/22 Ibuprofen [Motrin] 800 mg PO TID 03/15/21 10/10/22 Albuterol Nebulized [Ventolin 2.5 mg INHALATION RT-QID PRN 12/11/21 10/10/22 Nebulized] Linaclotide [Linzess] 145 mcg PO DAILY PRN 12/11/21 10/10/22 Sertraline [Zoloft] 50 mg PO DAILY 12/11/21 10/10/22 ALPRAZolam [Xanax] 1 mg PO TID PRN 09/23/22 10/10/22 Albuterol Inhaler [Ventolin Hfa 1 - 2 puff INHALATION RT-QID PRN 09/23/22 10/10/22 Inhaler] Atorvastatin [Lipitor] 40 mg PO HS 09/23/22 10/10/22 Cyclobenzaprine [Flexeril] 10 mg PO BID PRN 10/10/22 10/10/22 Emtricitabine/Tenofov Alafenam 1 tab PO DAILY 10/10/22 10/10/22 [Descovy 200-25 mg Tablet] Ergocalciferol (Vitamin D2) 1,250 mcg PO QMONTHLY 10/10/22 10/10/22 [Drisdol (50,000 Iu)] Ondansetron [Zofran] 4 mg PO DAILY PRN 10/10/22 10/10/22 Pregabalin [Lyrica] 150 mg PO TID 10/10/22 10/10/22 Previous Rx's Medication Instructions Recorded cefaDROXiL [Duricef] 500 mg PO Q12HR #14 cap 10/05/22 oxyCODONE HCL/ACETAMINOPHEN 1 tab PO Q6HR PRN 7 Days #28 tab 10/05/22 [Percocet 10-325 mg] Allergies Allergy/AdvReac Type Severity Reaction Status Date / Time metoclopramide [From Reglan] Allergy high BP Verified 10/10/22 11:22 trimethobenzamide HCl Allergy Dyspnea, Verified 10/10/22 11:22 [From Tigan] tongue swelled, hives Review of Systems ROS Statement: Those systems with pertinent positive or pertinent negative responses have been documented in the HPI. ROS Other: All systems not noted in ROS Statement are negative. Past Medical History Past Medical History: Asthma, Cancer, COPD, Diabetes Mellitus, Fibromyalgia, GERD/Reflux, Hyperlipidemia, Hypertension, Musculoskeletal Disorder, Osteoarthritis (OA), Pneumonia, Rheumatoid Arthritis (RA), Sleep Apnea/CPAP/ BIPAP Additional Past Medical History / Comment(s): Endometriosis. Varicose veins. Memory loss from Fibromyalgia. Migraines, has had "black outs". Episodes of vomiting related to anxiety, Gastroparesis, IBS, Hx Cervical cancer 10 yrs ago. "Kidney/liver issues (elevated liver enzymes) due to Diabetes". DDD,stage 1 kidney disease, hx. slow heart rate @times, doesn't use anything for sleep apnea,resolving resp. infection, recent dx. torticollis History of Any Multi-Drug Resistant Organisms: None Reported Past Surgical History: Back Surgery, Bladder Surgery, Section, Cholecystectomy, Tubal Ligation, Uterine Ablation Additional Past Surgical History / Comment(s): Section X3, cervix removed, D&C. Past Anesthesia/Blood Transfusion Reactions: Motion Sickness, Postoperative Nausea & Vomiting (PONV) Additional Past Anesthesia/Blood Transfusion Reaction / Comment(s): Grandmother hard to wake up, usually needs motion sickness patch Smoking Status: Former smoker - Past Family History Father Family Medical History: Cancer General Exam - General Exam Comments Initial Comments: GENERAL: No acute distress, obese. HEENT: Normocephalic, atraumatic. Pupils equal, round, reactive to light. Moist mucous membranes. LUNGS: No respiratory distress. Clear to auscultation, no adventitious sounds, no use of accessory muscles. HEART: Regular rate and rhythm without murmur, rub, or gallop. ABDOMEN: Normal bowel sounds. Soft, non-distended. Mild generalized abdominal tenderness, no guarding or rebound tenderness BACK: Normal inspection. EXTREMITIES: No edema. No tenderness. Moves all extremities. NEUROLOGIC: Alert & oriented x 3. CN II-XII grossly intact. PSYCHIATRIC: Normal affect and behavior. DERMATOLOGIC: Lower lumbar midline incision well approximated with breann intact no surrounding erythema near, or incisional drainage. Course Vital Signs 10/10/22 10/10/22 10:30 12:42 Temperature 97.4 F L Pulse Rate 70 62 Respiratory 18 18 Rate Blood Pressure 176/85 175/75 O2 Sat by Pulse 100 98 Oximetry Medical Decision Making - Medical Decision Making Was pt. sent in by a medical professional or institution (, PA, [employer]ER, urgent care, hospital, or [facility]...) When possible be specific @ -No Did you speak to anyone other than the patient for history (EMS, parent, family, police, friend...)? What history was obtained from this source @ -No Did you review nursing and triage notes (agree or disagree)? Why? @ -I reviewed and agree with nursing and triage notes Were old charts reviewed (outside hosp., previous admission, EMS record, old EKG, old radiological studies, urgent care reports/EKG's, [facility] records)? Report findings @ -Yes, I reviewed discharge summary from 10/03/2022 and an operative report from 10/02/2022 Differential Diagnosis (chest pain, altered mental status, abdominal pain women, abdominal pain men, vaginal bleeding, weakness, fever, dyspnea, syncope, headache, dizziness, GI bleed, back pain, seizure, CVA, palpatations, mental health, musculoskeletal)? @ -Differential Back Pain: Strain, zoster, cauda equina syndrome, epidural abscess, vertebral osteomyelitis, discitis, fracture, subluxation, disc herniation, DJD, spinal stenosis, dissection, AAA, pancreatitis, peptic ulcer disease, pyelonephritis, kidney stone, this is not meant to be an all-inclusive list. EKG interpreted by me (3pts min.). @ -None done X-rays interpreted by me (1pt min.). @ -X-ray KUB: Normal gas pattern, no evidence of significant stool burden. Postoperative changes to lumbar spine visualized. CT interpreted by me (1pt min.). @ -None done U/S interpreted by me (1pt. min.). @ -None done What testing was considered but not performed or refused? (CT, X-rays, U/S, labs)? Why? @ -None What meds were considered but not given or refused? Why? @ -None Did you discuss the management of the patient with other professionals (professionals i.e. , PA, [employer]SEMBLER, lab, RT, psych nurse, social services coordinator, etl bi developer, teacher, space operations officer, community case manager)? Give summary @ -Spoke with Dr. Graf patient's surgeon who advised anti-inflammatories and possible addition of gabapentin to pain medication regimen. Also advised the pain controlled to follow-up in office tomorrow. Was smoking cessation discussed for >3mins.? @ -No Was critical care preformed (if so, how long)? @ -No Were there social determinants of health that impacted care today? How? (Homelessness, low income, unemployed, alcoholism, drug addiction, transportation, low edu. Level, literacy, decrease access to med. care, residential, rehab)? @ -No Was there de-escalation of care discussed even if they declined (Discuss DNR or withdrawal of care, Hospice)? DNR status @ -No What co-morbidities impacted this encounter? (DM, HTN, Smoking, COPD, CAD, Cancer, CVA, ARF, Chemo, Hep., AIDS, mental health diagnosis, sleep apnea, morbid obesity)? @ -Degenerative disc disease with recent surgery Was patient admitted / discharged? Hospital course, mention meds given and route, prescriptions, significant lab abnormalities, going to OR and other pertinent info. @ -41-year-old female presenting with worsening chronic symptoms postoperatively including back pain, radiculopathy, nausea and vomiting. Will obtain laboratory studies of CBC, CMP, lactic acid, and blood culture. Will obtain KUB to evaluate stool burden. Will obtain CBC, CMP, amylase, lipase and viral swabbing for COVID, RSV and influenza. Will give Zofran and morphine and monitor response. KUB with out evidence of fecal impaction; normal stool and gas patterns. ABC reveals leukocytosis WBC 17.3 neutrophils 13.7 monocytes 1.1; she has had elevation in these readings since surgery and is down from her postoperative WBC peak of 18.8. CMP shows low sodium at 127 will chloride 93 BUN normal at 9 glucose elevated 276 amylase low lipase normal liver enzymes normal. No episodes of emesis will give 1 L fluid bolus for hyponatremia and hypochloremia. Pain persists despite morphine will give 1 mg of Dilaudid. Spoke with Dr. Graf regarding presentation and workup. He advised to give Toradol and offer her gabapentin in addition to her Lyrica, along with no indication for further diagnostic imaging; if pain improved okay for discharge home with follow-up in the office. Above information discussed with patient. Pain improved with Toradol and Dilaudid. Patient advised unable to obtain gabapentin with Lyrica prescription due to insurance restrictions. No indication for further diagnostic imaging or laboratory studies. Advised follow-up in the office with surgeon calling tomorrow for an appointment. Advised continuation of Percocet along with Lyrica as previously prescribed. Will discharge home in stable condition with continued medication for chronic lumbar pain with radiculopathy. Undiagnosed new problem with uncertain prognosis? @ -No Drug Therapy requiring intensive monitoring for toxicity (Heparin, Nitro, Insulin, Cardizem)? @ -No Were any procedures done? @ -No Diagnosis/symptom? @ -Lumbar pain with radiculopathy Acute, or Chronic, or Acute on Chronic? @ -Acute on chronic Uncomplicated (without systemic symptoms) or Complicated (systemic symptoms)? @ -Uncomplicated Side effects of treatment? @ -No Exacerbation, Progression, or Severe Exacerbation? @ -No Poses a threat to life or bodily function? How? (Chest pain, USA, VT, pneumonia, PE, COPD, DKA, ARF, appy, cholecystitis, CVA, Diverticulitis, Homicidal, Suicidal, threat to staff... and all critical care pts) @ -No Case discussed with Dr. Nava. - Lab Data Result diagrams: 10/10/22 11:00 10/10/22 11:00 Lab Results 10/10/22 10/10/22 10/10/22 Range/Units 11:00 11:00 11:00 WBC 17.3 H (3.8-10.6) k/uL RBC 4.23 (3.80-5.40) m/uL Hgb 12.8 (11.4-16.0) gm/dL Hct 38.2 (34.0-46.0) % MCV 90.1 (80.0-100.0) fL MCH 30.3 (25.0-35.0) pg MCHC 33.6 (31.0-37.0) g/dL RDW 13.0 (11.5-15.5) % Plt Count 493 H (150-450) k/uL MPV 7.8 Neutrophils % 79 % Lymphocytes % 13 % Monocytes % 6 % Eosinophils % 0 % Basophils % 0 % Neutrophils # 13.7 H (1.3-7.7) k/uL Lymphocytes # 2.3 (1.0-4.8) k/uL Monocytes # 1.1 H (0-1.0) k/uL Eosinophils # 0.0 (0-0.7) k/uL Basophils # 0.0 (0-0.2) k/uL Sodium 127 L (137-145) mmol/L Potassium 3.6 (3.5-5.1) mmol/L Chloride 93 L (98-107) mmol/L Carbon Dioxide 23 (22-30) mmol/L Anion Gap 11 mmol/L BUN 9 (7-17) mg/dL Creatinine 0.48 L (0.52-1.04) mg/dL Est GFR (CKD-EPI)AfAm >90 (>60 ml/min/1.73 sqM) Est GFR (CKD-EPI)NonAf >90 (>60 ml/min/1.73 sqM) Glucose 276 H (74-99) mg/dL Plasma Lactic Acid Darion 1.7 (0.7-2.0) mmol/L Calcium 8.6 (8.4-10.2) mg/dL Total Bilirubin 0.6 (0.2-1.3) mg/dL AST 46 H (14-36) U/L ALT 32 (4-34) U/L Alkaline Phosphatase 113 (38-126) U/L Total Protein 6.6 (6.3-8.2) g/dL Albumin 3.5 (3.5-5.0) g/dL Amylase <30 L (30-110) U/L Lipase 25 (23-300) U/L Influenza Type A (PCR) (Not Detectd) Influenza Type B (PCR) (Not Detectd) RSV (PCR) (Not Detectd) SARS-CoV-2 (PCR) (Not Detectd) 10/10/22 Range/Units 11:00 WBC (3.8-10.6) k/uL RBC (3.80-5.40) m/uL Hgb (11.4-16.0) gm/dL Hct (34.0-46.0) % MCV (80.0-100.0) fL MCH (25.0-35.0) pg MCHC (31.0-37.0) g/dL RDW (11.5-15.5) % Plt Count (150-450) k/uL MPV Neutrophils % % Lymphocytes % % Monocytes % % Eosinophils % % Basophils % % Neutrophils # (1.3-7.7) k/uL Lymphocytes # (1.0-4.8) k/uL Monocytes # (0-1.0) k/uL Eosinophils # (0-0.7) k/uL Basophils # (0-0.2) k/uL Sodium (137-145) mmol/L Potassium (3.5-5.1) mmol/L Chloride (98-107) mmol/L Carbon Dioxide (22-30) mmol/L Anion Gap mmol/L BUN (7-17) mg/dL Creatinine (0.52-1.04) mg/dL Est GFR (CKD-EPI)AfAm (>60 ml/min/1.73 sqM) Est GFR (CKD-EPI)NonAf (>60 ml/min/1.73 sqM) Glucose (74-99) mg/dL Plasma Lactic Acid Darion (0.7-2.0) mmol/L Calcium (8.4-10.2) mg/dL Total Bilirubin (0.2-1.3) mg/dL AST (14-36) U/L ALT (4-34) U/L Alkaline Phosphatase (38-126) U/L Total Protein (6.3-8.2) g/dL Albumin (3.5-5.0) g/dL Amylase (30-110) U/L Lipase (23-300) U/L Influenza Type A (PCR) Not Detected (Not Detectd) Influenza Type B (PCR) Not Detected (Not Detectd) RSV (PCR) Not Detected (Not Detectd) SARS-CoV-2 (PCR) Not Detected (Not Detectd) - Radiology Data Radiology results: report reviewed, image reviewed Disposition Clinical Impression: Post-operative pain Disposition: HOME SELF-CARE Condition: Stable Additional Instructions: Please continue your pain medication regimen as previously prescribed. Please contact Dr. Graf's office on Thursday to schedule an appointment. Please return to the Emergency Department if symptoms worsen or any other concerns. Is patient prescribed a controlled substance at d/c from ED?: No Referrals: Santino Rodriguez MD [Primary Care Provider] - 1-2 days Time of Disposition: 14:30
--- NOTE | 2022-10-10 11:22 | XR ---
Right abdomen. DATE: 10/10/2022. COMPARISON: None available. CLINICAL HISTORY: Abdominal pain after lumbar surgery. IMPRESSION: Gas pattern appears nonobstructive with no dilated loops of bowel or free intraperitoneal air identif ied. There is a posterior spinal fusion between the levels of L3 at S1 which is incompletely evaluated on this PA view. Surgical breann are seen overlying the surgical site.
[2022-10-10 11:26] LABS: Basophils % (A) 0 %; Eosinophils % (A) 0 %; HCT 38.2 % (34.0-46.0); HGB 12.8 gm/dL (11.4-16.0); Lymphocytes # (A) 2.3 k/uL (1.0-4.8); Lymphocytes % (A) 13 %; MCH 30.3 pg (25.0-35.0); MCHC 33.6 g/dL (31.0-37.0); MCV 90.1 fL (80.0-100.0); Mean Platelet Volume 7.8; Monocytes # (A) 1.1 k/uL (0-1.0); Monocytes % (A) 6 %; Neutrophils # (A) 13.7 k/uL (1.3-7.7); Neutrophils % (A) 79 %; Platelet Count 493 k/uL (150-450); RBC 4.23 m/uL (3.80-5.40); WBC 17.3 k/uL (3.8-10.6)
[2022-10-10 11:30] LABS: ALT 32 U/L (4-34); AST 46 U/L (14-36); African American GFR (CKD) >90 (>60 ml/min/1.73 sqM); Albumin 3.5 g/dL (3.5-5.0); Alkaline Phosphatase 113 U/L (38-126); Amylase <30 U/L (30-110); Anion Gap 11 mmol/L; Blood Urea Nitrogen 9 mg/dL (7-17); Calcium 8.6 mg/dL (8.4-10.2); Carbon Dioxide 23 mmol/L (22-30); Chloride 93 mmol/L (98-107); Glucose 276 mg/dL (74-99); Lipase 25 U/L (23-300); Non-African American GFR(CKD) >90 (>60 ml/min/1.73 sqM); Sodium 127 mmol/L (137-145); Total Bilirubin 0.6 mg/dL (0.2-1.3); Total Protein 6.6 g/dL (6.3-8.2)
[2022-10-10 11:32] LABS: Potassium 3.6 mmol/L (3.5-5.1)
[2022-10-10] MEDS ORDERED: SODIUM CHLORIDE 0.9% 1,000 ML IV STA (11:41)
[2022-10-10] MEDS ORDERED: HYDROmorphone 1 MG/ML 1 ML SYRINGE IVP STA (12:13)
[2022-10-10 12:43] VITALS: BP 175/75; PULSE 62
[2022-10-10] MEDS ORDERED: KETOROLAC 15 MG/ML 1 ML VIAL IVP STA (13:32)
== END 2022-10-10 15:14 | disposition home or self-care (01) ==
LOC: EC 10:27
DX: G89.28 Other chronic postprocedural pain (principal); J45.909 Unspecified asthma, uncomplicated; K21.9 Gastro-esophageal reflux disease without esophagitis; E78.5 Hyperlipidemia, unspecified; E11.43 Type 2 diabetes mellitus with diabetic autonomic (poly)neuropathy; K31.84 Gastroparesis; E11.22 Type 2 diabetes mellitus with diabetic chronic kidney disease; I12.9 Hypertensive chronic kidney disease with stage 1 through stage 4 chronic kidney disease, or unspecified chronic kidney disease; N18.1 Chronic kidney disease, stage 1; Z90.49 Acquired absence of other specified parts of digestive tract; Z88.8 Allergy status to other drugs, medicaments and biological substances; Z79.4 Long term (current) use of insulin; Z79.899 Other long term (current) drug therapy; Z98.51 Tubal ligation status; Z20.822 Contact with and (suspected) exposure to COVID-19; Z87.891 Personal history of nicotine dependence
CPT/HCPCS: 36415; 80053; 82150; 83605; 83690; 85025; 87636; 74018; 99285; 96374; 96375; 96361; J2270; J2405; J1170; J1885

== ENCOUNTER → 2022-12-10 | Outpatient (CLI) | payer OTHER ==
[2022-12-10 21:08] LABS: HCT 43.6 % (37.2-46.3); MCH 29.5 pg (27.0-32.0); MCHC 32.1 g/dL (32.0-37.0); Mean Platelet Volume 10.8 fL (9.5-12.2); NRBC Per 100 WBC 0 /100 WBCS (0.0-0.0); Platelet Count 375 X 10*3/uL (140-440); RBC 4.74 X 10*6/uL (4.10-5.20); RDW 12.8 % (11.5-14.5); WBC 12.66 X 10*3/uL (4.50-10.00)
[2022-12-10 21:15] LABS: Erythrocyte Sedimentation Rate 52 mm/Hr (0-20)
[2022-12-10 21:17] LABS: ALT 25 U/L (8-44); AST 23 U/L (13-35); African American GFR (CKD) 132.5 (60.0-200.0); Albumin/Globulin Ratio 1.36 (1.60-3.17); Alkaline Phosphatase 92 U/L (41-126); BUN/Creat Ratio 11.58 Ratio (12.00-20.00); Blood Urea Nitrogen 6.6 mg/dL (9.0-27.0); Calcium 9.8 mg/dL (8.7-10.3); Carbon Dioxide 26.8 mmol/L (20.0-27.5); Chloride 99 mmol/L (96-109); Glucose 258 mg/dL (70-110); Non-African American GFR(CKD) 114.3 (60.0-200.0); Potassium 4.3 mmol/L (3.5-5.5); Sodium 137 mmol/L (135-145); Total Bilirubin <0.15 mg/dL (0.30-1.20)
== END | disposition home or self-care (01) ==
LOC: LABWHC1 15:35
PROVIDERS: ATTEND Orthopaedic Surgery
DX: M43.26 Fusion of spine, lumbar region (principal)
CPT/HCPCS: 36415; 80053; 85027; 85652; 86140

== ENCOUNTER → 2023-07-04 | Outpatient (CLI) | payer OTHER | END | disposition home or self-care (01) | LOC: RADMRIMAIN 09:04 | PROVIDERS: ATTEND Student in an Organized Health Care Education/Training Program | DX: Z53.9 Procedure and treatment not carried out, unspecified reason (principal) ==

== ENCOUNTER → 2023-07-04 | Outpatient (CLI) | payer OTHER ==
--- NOTE | 2023-07-04 10:31 | MR ---
EXAMINATION TYPE: MR cervical spine wo con DATE OF EXAM: 07/04/2023 COMPARISON: None HISTORY: Spinal stenosis, Severe pain and numbness CONTRAST: Performed utilizing 0 mL intravenous Gadavist gadolinium contrast. TECHNIQUE: Multiplanar multiecho imaging on a 3.0 Greta magnet is performed through the cervical spin e. FINDINGS: The craniovertebral junction is normal. Vertebral body alignment is straightened C7-T1: There is a moderately large central disc herniation with extension superiorly with moderate a nterior thecal sac compression. This is cord contact without cord deformity. Mild spinal canal stenos is present. Neural foramen are patent. C6-7: Broad-based disc bulge is moderate anterior thecal sac flattening. This comes in close approxim ation with the spinal cord. No spinal canal stenosis is present. There is mild right foraminal stenos is. C5-6: Broad-based disc bulge is present with anterior thecal sac flattening. No AP spinal canal steno sis is present. Moderate bilateral foraminal stenosis present this comes in close approximation of th e spinal cord. Cord deformity is noted.. C4-5: No focal disc herniation or significant disc bulge is evident. No spinal canal stenosis or nola ral foraminal stenosis is present. C3-4: No focal disc herniation or significant disc bulge is evident. No spinal canal stenosis or nola ral foraminal stenosis is present. C2-3: Left paracentral disc bulge has mild to moderate anterior thecal sac compression. No cord conta ct is evident. No spinal canal stenosis or neural foraminal stenosis present.. IMPRESSION: 1. Large central disc herniation with extension superiorly at C7-T1 has some cord contact and spinal canal stenosis. 2. Broad-based disc bulge C6-7 with moderate anterior thecal sac flattening. 3. Broad-based disc bulge C5-6 with mild anterior thecal sac compression. 4. Moderate Foraminal stenosis C5-6 secondary to uncovertebral joint hypertrophy. 5. Left paracentral disc bulge with mild to moderate sac compression C2-3.
--- NOTE | 2023-07-04 10:35 | MR ---
EXAMINATION TYPE: MR lumbar spine wo/w con DATE OF EXAM: 07/04/2023 COMPARISON: 12/03/2022 HISTORY: Low back pain into legs, Hx back surgery CONTRAST: 11 mL intravenous Gadavist. TECHNIQUE: Multiplanar, multisequence images of the lumbar spine were acquired. Susceptibility artifact from ped icle screws L3-L5 cause limitation. FINDINGS: L5-S1: No significant disc bulge or disc herniation. No spinal canal stenosis. No foraminal stenosi s. Pedicle screws at L5 cause some limitation to this level. L4-L5: This level is essentially nondiagnostic due to susceptibility artifact. L3-L4: This level is essentially nondiagnostic due to susceptibility artifact. L2-L3: No significant disc bulge or disc herniation. No spinal canal stenosis. No foraminal stenosi s. Neural foramen are patent.. L1-L2: No significant disc bulge or disc herniation. No spinal canal stenosis. No foraminal stenosi s. Neural foramen are patent.. T12-L1: No significant disc bulge or disc herniation. No spinal canal stenosis. No foraminal stenos is. Neural foramen are patent.. T11-T12: There is a left paracentral moderate-sized disc herniation with moderate anterior thecal sac compression. No spinal canal stenosis is present. Foramina are patent No abnormal enhancement. IMPRESSION: 1. Moderate-sized focal protrusion T11-12 left paracentral region without spinal canal stenosis. 2. Postsurgical changes with pedicle screws L3 through L5 causes severe limitation on visualization t hrough these levels
== END | disposition home or self-care (01) ==
LOC: RADMRIMAIN 09:07
PROVIDERS: ATTEND Orthopaedic Surgery
DX: M48.02 Spinal stenosis, cervical region (principal); M99.71 Connective tissue and disc stenosis of intervertebral foramina of cervical region; M50.23 Other cervical disc displacement, cervicothoracic region; M47.22 Other spondylosis with radiculopathy, cervical region; M62.81 Muscle weakness (generalized)
CPT/HCPCS: 72141; 72158

== ENCOUNTER → 2023-10-16 | Outpatient (CLI) | payer OTHER | END | disposition home or self-care (01) | LOC: LABPAT 10:58 | PROVIDERS: ATTEND Orthopaedic Surgery | DX: Z01.818 Encounter for other preprocedural examination (principal); Z22.322 Carrier or suspected carrier of Methicillin resistant Staphylococcus aureus; M50.20 Other cervical disc displacement, unspecified cervical region; M48.02 Spinal stenosis, cervical region | CPT/HCPCS: 86850; 86900; 86901; 87070 ==

== ENCOUNTER → 2023-10-19 | Outpatient (CLI) | payer OTHER ==
[2023-10-19 16:27] LABS: BUN/Creat Ratio 13.17 Ratio (12.00-20.00); Blood Urea Nitrogen 7.9 mg/dL (9.0-27.0); Glucose 263 mg/dL (70-110)
[2023-10-19 16:28] LABS: ALT 29 U/L (8-44); AST 26 U/L (13-35); Albumin 3.8 g/dL (3.8-4.9); Albumin/Globulin Ratio 1.58 Ratio (1.60-3.17); Alkaline Phosphatase 74 U/L (41-126); Calcium 9.1 mg/dL (8.7-10.3); Carbon Dioxide 23.2 mmol/L (21.6-31.8); Chloride 102 mmol/L (96-109); Globulin 2.4 g/dL (1.6-3.3); Potassium 4.1 mmol/L (3.5-5.5); Sodium 137 mmol/L (135-145); Total Bilirubin 0.3 mg/dL (0.3-1.2); Total Protein 6.2 g/dL (6.2-8.2)
[2023-10-19 20:32] LABS: HCT 46.6 % (37.2-46.3); HGB 15.1 g/dL (12.0-15.0); MCH 30.4 pg (27.0-32.0); MCHC 32.4 g/dL (32.0-37.0); Mean Platelet Volume 10.4 FL (9.5-12.2); NRBC Per 100 WBC 0 X 10*3/uL (0.00-0.01); Platelet Count 353 X 10*3/uL (140-440); RBC 4.96 X 10*6/uL (4.10-5.20); RDW 13.2 % (11.5-14.5); WBC 14.52 X 10*3/uL (4.50-10.00)
[2023-10-19 21:22] LABS: INR 0.93 sec (0.93-1.11); Prothrombin Time 10.1 sec (9.9-11.9)
== END | disposition home or self-care (01) ==
LOC: LABWHC1 11:34
PROVIDERS: ATTEND Orthopaedic Surgery
DX: Z01.812 Encounter for preprocedural laboratory examination (principal); M50.20 Other cervical disc displacement, unspecified cervical region; M48.02 Spinal stenosis, cervical region
CPT/HCPCS: 36415; 80053; 82306; 85027; 85610

== ENCOUNTER 2023-10-23 11:15 | Day surgery (SDC) | payer OTHER ==
[~2023-10-23 11:15] MED LIST changes: -LACTATED RINGERS 1,000 ML IV SCH; +MIDAZOLAM 2 MG/2 ML VIAL IV PRN; +TRANEXAMIC 1,000 MG/100ML-NACL 1,000 MG in SALINE 1 100ML.BAG IVPB PRN
[2023-10-23 12:00] LABS: Glucose,Whole Blood 170 mg/dL (70-110)
[2023-10-23] MEDS: ACETAMINOPHEN TAB 500 MG TAB PO PRN (12:20)
[2023-10-23] MEDS: GABAPENTIN 300 MG CAP PO PRN (12:20)
[2023-10-23] MEDS: ONDANSETRON 4 MG/2 ML VIAL IVP ONE (12:21)
[2023-10-23] MEDS: MIDAZOLAM 2 MG/2 ML VIAL IVP ONE (12:22)
--- NOTE | 2023-10-23 12:24 | P.HPOR ---
History of Present Illness H&P Date: 10/16/23 .D:Date: 10/16/23 : 10:01am .T:Title: [facility] HISTORY AND PHYSICAL Age: 42 year Height: 5'3" Weight: 240 lbs BP:121/76 BMI: 42.51 kg/m2 Occupation: Unemployed VAS: 8 Hand:Right IMPRESSION: It was my pleasure to have seen and examined Yared. I reviewed the patient's clinical syndrome, physical findings, and imaging studies during the appointment today. It is my impression that the patient has a diagnosis of. 1. 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 s/p L3-S1 fusion I outlined the natural course history without intervention and various interventional options. Spine Surgery Risk Review Ms. Arteaga is presenting for evaluation of neck and bilateral upper extremity pain, bilateral upper extremity numbness, tingling, and weakness. It was my pleasure to have seen and examined Ms. Arteaga. In our visit today we have had a chance to go over subjective complaints, physical examination findings and treatments including the natural course history without intervention and various interventional options. The patients imaging demonstrates: XRay Cervical multiview (Lateral, Flexion, Extension, AP, Oblique) 6 views taken at [facility] [place] on 07/23/23 of Cervical Spine: spondylotic changes noted at C5 6 C6 7 with flattening normal cervical lordosis. No fracture dislocation other lesions [facility] Lumbar Spine: images reviewed with the patient CC 0 C1 stablespondylosis C1 2 stablespondylosis C2-C3: Stableand no spondylosis and no stenosis C3-C4: Mild spondylosis no stenosis C4-C5: Mild spondylosis no stenosis C5-C6 severe spondylosis severe stenosis central and bilateral foraminal due to disc herniation disc collapse ligamental hypertrophy C6-C7 spondylosis severe with moderate central and bilateral foraminal stenosis due to disc collapse height collapse spondylosis ligamental hypertrophy Alignment is neutral minimal lordosis No fracture No lesion On physical exam, Ms. Arteaga demonstrates: A gradual onset of pain throughout the posterior aspect of the neck over the last 4 to 6 months. She denies experiencing any injury or trauma to the cervical spine to indicate an exact onset of her current symptoms. She notes radiating pain from the neck down into the bilateral upper extremities. She states her upper extremity pain is associated with numbness and tingling. She notes increased weakness throughout the bilateral upper extremity. She states her hands and arms go numb very rapidly when driving. She notes she has been avoiding driving over the last 1 month due her worsening symptoms. She notes increased headaches over the last 1 month. She notes tenderness to palpation of the posterior neck. The patient states her cervical symptoms are exacerbated by all activity, which makes it very difficult for her to complete any of er daily tasks. The patient reports experiencing severe sleep disturbances related to her ongoing pain and associated symptoms. I have explained to the patient that as their condition progresses it will cause further neurological deficits and eventual paralysis. Based on the patients imaging, physical exam, and the rapid progression and disabling nature of their symptoms, at this time I recommend surgery in the form of a: C5-7 ACDF. I discussed the risk and benefits of this procedure at length with Ms. Arteaga. The patient agreed to considered pursuing the procedure above mentioned. Prior to surgery, she should follow up with her PCP (Cardio, ID, IM etc) for clearance. Questions were invited and answered, and the patient wishes to proceed as outlined below. Currently, I am recommendin.C5-7 anterior cervical discectomy and fusion 2.Review of surgical risks and benefits as well as an educational packet on the proposed surgical procedure. Risks: All surgical procedures come with inherent risks, including those related to positioning, anesthesia, intraoperative findings, and postoperative complications. It is important to understand that surgery does not come with any guarantee of a successful outcome as complications and adverse events are always possible. The patient was given a handout in office today discussing the surgical procedure and risks associated with the intervention, both of which were discussed with the patient. These risks include but are not limited to the following: * Experiencing same, different or even worse symptoms in back, neck, arms, or legs compared to before surgery. Requiring further surgery or other forms of treatment presently or at some time in the future at same or other levels of the intended spine surgery. On an extreme but fortunately relatively rare basis severe complication such as blindness, stroke, heart attack, temporary and/or permanent nerve injury, paralysis, coma, or may occur, sometimes without known explanation. Surgical complications may include but are not limited to risk of infection, fluid accumulation in the surgical dissection site, including a seroma or hematoma, that requires additional surgery, wound drainage, bleeding, new numbness or weakness, vision changes/loss, spinal fluid leakage, non-healing and/or infected incision, headaches, difficulty or inability to swallow, hoar seness, hemopneumothorax, pneumothorax, impotence, retrograde ejaculation, vaginal dryness; injury to nerves, spinal cord, blood vessels, lymphatics or other vital organs (i.e., bowel injury, injury to the great vessels); heterotopic bone formation; complications related to the hardware such as screws, rods, cages including misplaced hardware, device failure, instrumentation at the wrong spine level, hardware fracture/breakage, or hardware loosening; vertebral failure of the spinal column above or below the newly placed hardware; retained surgical instrumentations or devices and the need for further surgery. * Medical risks of the planned spine surgery include but are not limited to generalized Infections to the whole body or local areas outside of the surgical site (sepsis), heart attack, bleeding, anaphylaxis, meningitis, seizure, epilepsy, hearing loss, burn durham, laceration of the head or other areas of the body, bruising, hypersensitivity of the skin, bladder over distension; allergic reaction; shoulder injury related to positioning; fat, blood and air clots to other areas of the body like heart, lungs, brain; failure of internal organs such as lungs, kidneys, liver and excessive bleeding. If blood transfusions are necessary, note that transfusions may cause intolerance reactions such as anaphylaxis or other complex reactions. Despite best efforts, the results of spine surgery might not heal in terms of bone, soft tissues such as skin, fascia, ligaments, and joints. Additionally, in order to achieve best possible results, spine surgery may be carried out beyond the initially planned levels and involve decompression, fusion including insertion of hardware at levels other than the original intended area of surgical interest change some portions of the procedure in order to ensure the best possible outcomes. With spine surgery and spinal fusion, there are different off label uses of instrumentation (devices, implants and hardware) as well as biological sub stances (bone morphogenic proteins, demineralized bone matrix) as well as using extra bone from allograft sources (i.e. cadaver bone) or autograft (iliac crest bone, ribs, or the spine itself). The patient has been given information about these practices and their inherent risks and benefits. [facility] is an educational center that serves as a training facility for neurosurgical and orthopedic [employer] and Nursing students. Physician assistants are medically trained surgical providers who function in the outpatient, inpatient, and operating room setting under the direct supervision of the attending surgeon. [facility] has multiple operating rooms with single and overlapping rooms running daily. They currently function under the required guidelines as produced by the [facility] Finance Committee with regards to the overlapping rooms and will continue to comply with changes to this policy as they occur. The requirements include and are complied with as follows: (1) the critical portions of the overlapping rooms will not occur at the same time, (2) the attending physician will be physically present during the critical portions of the procedure and immediately available during the entire case, and (3) a back-up attending is designated should the primary attending not be immediately available. The patient has had a chance to review all the listed information, has been given print outs detailing this information, and has had all his/her questions answered to their satisfaction. It was my pleasure to have seen and examined Ms. Arteaga. In our visit today we have had a chance to go over my understanding of our patient's current condition, the natural course history without intervention and various interventional options. Questions were invited and answered, and the patient wishes to proceed as outlined above. I have seen and examined the patient for 25 minutes and we have spent more than 50% of the time in repeat and detailed counseling about the patient's condition, its natural course history with out and as much as can be predicted with surgery and re-review of various surgical treatment options. In conclusion, Ms. Arteaga requested we proceed with the above suggested surgery and are willing to accept risks and limitations of the suggested surgery as nature of the disease process and our best attempts at treatment for the con dition. Thank you again for allowing us to be part of your patient's care. Please don't hesitate to contact me if you have any further questions. FOLLOW UP: Post Procedure PLAN AT NEXT VISIT: X-Rays of the cervical spine (AP & Lateral) PATIENT EDUCATION: Medications Reviewed: YES In our visit today Ms. Arteaga and I have had a chance to go over my understand ing of the patient's current condition, the natural course history without intervention and various interventional options. Questions were invited and answered, and the patient wishes to proceed as outlined above. I will be sure to keep you updated after Ms. Arteaga returns here for further follow-up. Thank you again for your referral. Please do not hesitate to contact me if you have any further questions. Signed and authenticated by: Ronaldo Torres [facility] [address] [place] [place] [address] This message is confidential, intended only for the named recipient(s) and may contain information that is privileged or exempt from disclosure under applicable law. If you are not the intended recipient(s), you are notified that the dissemination, distribution or copying of this information is strictly prohibited. If you received this message in error, please notify the sender then delete this message. #Orders: Lumbar 2v xray # SIGNED BY Ronaldo Graf (GOO)10/22/2023 06:27A Past Medical History Past Medical History: Asthma, Cancer, COPD, Diabetes Mellitus, Fibromyalgia, GERD/Reflux, Hyperlipidemia, Hypertension, Musculoskeletal Disorder, Osteo arthritis (OA), Pneumonia, Rheumatoid Arthritis (RA), Sleep Apnea/CPAP/BIPAP Additional Past Medical History / Comment(s): Endometriosis. Varicose veins. Memory loss from Fibromyalgia. Migraines, has had "black outs". Episodes of vomiting related to anxiety, Gastroparesis, IBS, Hx Cervical cancer 10 yrs ago. "Kidney/liver issues (elevated liver enzymes) due to Diabetes". DDD,stage 1 kidney disease, hx. slow heart rate @times, doesn't use anything for sleep apnea,resolving resp. infection, recent dx. torticollis History of Any Multi-Drug Resistant Organisms: None Reported Past Surgical History: Back Surgery, Bladder Surgery, Section, Cholecystectomy, Tubal Ligation, Uterine Ablation Additional Past Surgical History / Comment(s): Section X3, cervix removed, D&C. Past Anesthesia/Blood Transfusion Reactions: Motion Sickness, Postoperative Nausea & Vomiting (PONV) Additional Past Anesthesia/Blood Transfusion Reaction / Comment(s): Grandmother hard to wake up, usually needs motion sickness patch Smoking Status: Former smoker - Past Family History Father Family Medical History: Cancer Medications and Allergies Home Medications Medication Instructions Recorded Confirmed Type lisinopriL [Prinivil] 5 mg PO HS 02/13/16 10/20/23 History Dicyclomine [Bentyl] 20 mg PO QID 11/30/20 10/20/23 History INSULIN LISPRO (humaLOG) [humaLOG] See Protocol SQ AC-TID PRN 11/30/20 10/20/23 History Insulin Glargine,Hum.rec.anlog 60 unit SQ 0800 11/30/20 10/20/23 History [Lantus Solostar] Omeprazole [PriLOSEC] 20 mg PO BID 11/30/20 10/20/23 History Ibuprofen [Motrin] 800 mg PO TID 03/15/21 10/20/23 History Albuterol Nebulized [Ventolin 2.5 mg INHALATION RT-QID PRN 12/11/21 10/20/23 Hi story Nebulized] Linaclotide [Linzess] 145 mcg PO DAILY PRN 12/11/21 10/20/23 History ALPRAZolam [Xanax] 1 mg PO TID PRN 09/23/22 10/20/23 History Albuterol Inhaler [Ventolin Hfa 1 - 2 puff INHALATION RT-QID PRN 09/23/22 10/20/23 History Inhaler] Cyclobenzaprine [Flexeril] 10 mg PO BID PRN 10/10/22 10/20/23 History Ergocalciferol (Vitamin D2) 1,250 mcg PO QMONTHLY 10/10/22 10/20/23 History [Drisdol (50,000 Iu)] Ondansetron [Zofran] 4 mg PO DAILY PRN 10/10/22 10/20/23 History Pregabalin [Lyrica] 150 mg PO TID 10/10/22 10/20/23 History Fluticasone/Umeclidin/Vilanter 1 inh INHALATION 1400 10/20/23 10/20/23 History [Trelegy Ellipta 200-62.5-25] Allergies Allergy/AdvReac Type Severity Reaction Status Date / Time trimethobenzamide HCl Allergy Dyspnea, Verified 10/23/23 11:42 [From Tigan] tongue swelled, hives Physical Examination Osteopathic Statement: *. No significant issues noted on an osteopathic structural exam other than those noted in the History and Physical/Consult. Results - Labs Labs: Abnormal Lab Results - Last 24 Hours (Table) 10/23/23 Range/Units 11:59 POC Glucose (mg/dL) 170 H (70-110) mg/dL
[2023-10-23] MEDS: LACTATED RINGERS 1,000 ML IV SCH (12:26)
[2023-10-23] MEDS ORDERED: ROCURONIUM 10 MG/ML (5 ML VIAL) IV ONE (13:08)
[2023-10-23] MEDS ORDERED: PROPOFOL 10 MG/ML 20 ML VIAL IV ONE (13:08)
[2023-10-23] MEDS ORDERED: KETAMINE HCL IN 0.9 % NACL 50 MG/5 ML SYRINGE ONE (13:08)
[2023-10-23] MEDS ORDERED: SUCCINYLCHOLINE CHLORIDE 200 MG/10 ML VIAL IV ONE (13:08)
[2023-10-23] MEDS ORDERED: MIDAZOLAM 2 MG/2 ML VIAL ONE (13:08)
[2023-10-23] MEDS ORDERED: GLYCOPYRROLATE 0.2 MG/ML 2 ML VIAL ONE (13:08)
[2023-10-23] MEDS ORDERED: HYDROmorphone (PF) 1 MG/ML ONE (13:08)
[2023-10-23] MEDS ORDERED: LIDOCAINE 1% INJ 10MG/ML (20 ML MDV) ONE (13:08)
[2023-10-23] MEDS ORDERED: fentaNYL (PF) 50 MCG/ML 2 ML AMP ONE (13:08)
[2023-10-23] MEDS ORDERED: NEOSTIGMINE 1 MG/ML 10 ML VIAL ONE (13:08)
[2023-10-23 13:22] LABS: Basophils # (A) 0.1 k/uL (0-0.2); Basophils % (A) 1 %; Eosinophils # (A) 0.1 k/uL (0-0.7); Eosinophils % (A) 1 %; HCT 48.8 % (34.0-46.0); HGB 16.7 gm/dL (11.4-16.0); Lymphocytes # (A) 4.3 k/uL (1.0-4.8); Lymphocytes % (A) 32 %; MCH 32.2 pg (25.0-35.0); MCHC 34.3 g/dL (31.0-37.0); MCV 93.8 fL (80.0-100.0); Mean Platelet Volume 8.5; Monocytes # (A) 0.7 k/uL (0-1.0); Monocytes % (A) 5 %; Neutrophils # (A) 7.9 k/uL (1.3-7.7); Neutrophils % (A) 59 %; Platelet Count 264 k/uL (150-450); RDW 13.5 % (11.5-15.5); WBC 13.4 k/uL (3.8-10.6)
[2023-10-23] MEDS: GELATIN SPONGE,ABSORB (LARGE) 1 EACH SPONGE MISCELLANE ONE (14:00)
[2023-10-23] MEDS: THROMBIN (BOVINE) 5,000 UNIT VIAL MISCELLANE ONE (14:00)
[2023-10-23] MEDS: LACTATED RINGERS 1,000 ML IV ONE (14:16)
--- NOTE | 2023-10-23 15:55 | XR ---
EXAMINATION TYPE: XR cervical spine limited DATE OF EXAM: 10/23/2023 COMPARISON: NONE HISTORY: Postsurgical intraoperative changes TECHNIQUE: Six views are submitted. FINDINGS: There are postsurgical intraoperative changes. An endotracheal tube is noted. IMPRESSION: 1. Intraoperative postsurgical changes.
[2023-10-23] MEDS ORDERED: HYDROmorphone 0.5 MG/0.5 ML SYRINGE IVP PRN (16:09)
[2023-10-23] MEDS ORDERED: SENNOSIDES-DOCUSATE SODIUM 1 EACH TAB PO PRN (16:09)
[2023-10-23] MEDS ORDERED: MAGNESIUM HYDROXIDE 2,400 MG/30 ML CUP PO PRN (16:09)
[2023-10-23] MEDS: hydrALAZINE HCL 20 MG/ML 1 ML VIAL IVP ONE (16:10)
[2023-10-23] MEDS: HYDROmorphone 0.5 MG/0.5 ML SYRINGE IVP PRN (16:30)
[2023-10-23] MEDS: ONDANSETRON 4 MG/2 ML VIAL IVP PRN (16:35)
[2023-10-23] MEDS: droPERidol 5 MG/2 ML VIAL IVP ONE (16:42)
[2023-10-23] MEDS: DEXAMETHASONE SOD PHOSPHATE 4 MG/ML 1 ML VIAL IV ONE (17:25)
[2023-10-23] MEDS: HYDROmorphone 1 MG/ML 1 ML SYRINGE IVP PRN (18:40)
--- NOTE | 2023-10-23 18:57 | P.OP ---
Date of Procedure: 10/23/23 Preoperative Diagnosis: 1. C5-7 HNP WITH SEVERE STENOSIS 2. C5-7 SPONDYLOSIS 3. UE RADICULOPATHY 4. UE WEAKNESS 5. NECK PAIN Postoperative Diagnosis: 1. C5-7 HNP WITH SEVERE STENOSIS 2. C5-7 SPONDYLOSIS 3. UE RADICULOPATHY 4. UE WEAKNESS 5. NECK PAIN Procedure(s) Performed: 1. C5-6 ANTERIOR CERVICAL ARTHRODESIS 2. C6-7 ANTERIOR CERVICAL ARTHRODESIS 3. C5-7 ANTERIOR INSTRUMENTATION 4. C5-6 AND C6-7 INSERTION OF BIOMECHANICAL DEVICE, CAGES, X2 USE OF IONM USE OF IO MICROSCOPE CPTMOD 22 THIS CASE TOOK 75% LONGER THAN EXPECTED DUE TO CORMORBID CONDITIONS, HIGH BMI >40, EXTENT OF CERVICAL DISEASE AND HIGH TECHNICALITY OF THE CASE. Implants: 4 MANJARREZ ANTERIOR INTERBODY -8MM 16X14 DEG x2 -14 MM 3.5MM SCREWS MAGNATOS Anesthesia: GETA Surgeon: Ronaldo Graf Web [employer] Specialist #1: Brandon Severino (WAS PRESENT AND ASSISTED WITH ALL ASPECTS OF THE CASE FROM POSTITION TO CLOSURE) Estimated Blood Loss (ml): 25 IV fluids (ml): 1,200 Urine output (ml): 350 Pathology: none sent Condition: stable Disposition: PACU Indications for Procedure: Ms. Arteaga is presenting for evaluation of neck and bilateral upper extremity pain, bilateral upper extremity numbness, tingling, and weakness. It was my pleasure to have seen and examined Ms. Arteaga. In our visit today we have had a chance to go over subjective complaints, p hysical examination findings and treatments including the natural course history without intervention and various interventional options. The patients imaging demonstrates: XRay Cervical multiview (Lateral, Flexion, Extension, AP, Oblique) 6 views taken at [facility] on 07/23/23 of Cervical Spine: spondylotic changes noted at C5 6 C6 7 with flattening normal cervical lordosis. No fracture dislocation other lesions noted MRI [facility]07[facility]04[facility]2023 of LumbarSpine: images reviewed with the patient CC 0 C1 stablespondylosis C1 2 stablespondylosis C2-C3: Stableand no spondylosis and no stenosis C3-C4: Mild spondylosis no stenosis C4-C5: Mild spondylosis no stenosis C5-C6 severe spondylosis severe stenosis central and bilateral foraminal due to disc herniation disc collapse ligamental hypertrophy C6-C7 spondylosis severe with moderate central and bilateral foraminal stenosis due to disc collapse height collapse spondylosis ligamental hypertrophy Alignment is neutral minimal lordosis No fracture No lesion On physical exam, Ms. Arteaga demonstrates: A gradual onset of pain throughout the posterior aspect of the neck over the last 4 to 6 months. She denies experiencing any injury or trauma to the cervical spine to indicate an exact onset of her current symptoms. She notes radiating pain from the neck down into the bilateral upper extremities. She states her upper extremity pain is associated with numbness and tingling. She notes increased weakness throughout the bilateral upper extremity. She states her hands and arms go numb very rapidly when driving. She notes she has been avoiding driving over the last 1 month due her worsening symptoms. She notes increased headaches over the last 1 month. She notes tenderness to palpation of the posterior neck. The patient states her cervical symptoms are exacerbated by all activity, which makes it very difficult for her to complete any of er daily tasks. The patient reports experiencing severe sleep disturbances related to her ongoing pain and associated symptoms. I have explained to the patient that as their condition progresses it will cause further neurological deficits and eventual paralysis. Based on the patients imaging, physical exam, and the rapid progression and disabling nature of their symptoms, at this time I recommend surgery in the form of a: C5-7 ACDF. I discussed the risk and benefits of this procedure at length with Ms. Arteaga. The patient agreed to considered pursuing the procedure above mentioned. Prior to surgery, she should follow up with her PCP (Cardio, ID, IM etc) for clearance. Questions were invited and answered, and the patient wishes to proceed as outlined below. Currently, I am recommendin.C5-7 anterior cervical discectomy and fusion Description of Procedure: C5-7 ACDF The patient was seen and examined in the preoperative area. All preoperative protocols were followed. Informed consent was obtained, risks and benefits of the procedure were discussed at length. Risks including bleeding infection damage to the surrounding tissue and risk of reoperation were discussed with the patient. Risk of anesthesia up to and including was discussed with the patient. These are outlined in the risk review. They were willing to accept these risks and all the risks of surgery. The patient was given a weight-based dose of antibiotics in the form of 2 g Ancef. The patient was seen and evaluated by the anesthesia team who deemed them fit for surgery. The site was marked, the patient was willing to proceed with the procedure. The patient was transferred to the operative suite by the Department of anesthesia. They were then drifted off to sleep by the department anesthesia and GETA was performed. The patient tolerated this well. Tomlin catheter was placed by nursing staff, a-traumatically. Once confirmation of lines and ventilation the patient was transferred to a Supine Curry table very carefully. All bony prominences including wrists, elbows, axilla, chest, hips, and thighs, and feet were padded very well. Special attention was paid to the genitalia, and these were padded accordingly. SCDs were placed on bilateral lower extremities and were connected. Arms were well padded and placed at their side thumbs up. Once in position, again we confirmed good ventilation capabilities and that lines were running appropriately. The patients Cervical spine was then exposed. 1010s were placed outlining the incision site. Standard alcohol was used to clean the incision site and allowed to dry. C-arm was used to bio-jonnathan the patient and confirm level for incision which was marked with a skin marker. Operative briefing was performed with all teams and everyone in agreement to proceed. The patient was then prepped and draped in a normal sterile fashion. Timeout was then performed, and all parties agreed with the procedure to be performed. Transverse skin incision was then made on the right side of the patient's neck 3 cm and dissection taken down to the platysma which was split transversely. Sub platysma flap was made, and interval identified between SCM and medial structures. Omohyoid was visualized and protected. Blunt dissection taken down to the anterior cervical fascia which was identified. Blunt probe was then placed and lateral image taken which confirmed levels for operation. These levels were then marked with a bovi. Subperiosteal dissection of the longissimus muscles were then done over these levels identifying uncovertebral joints bilaterally. Retractor was then placed deep to these muscles and held in place with a bed arm. Starting at C6-7, Girard pins were placed into C6 and C7 and gentle distraction taken out over the levels. Tru rongeur used to remove disc material. Operating microscope brought in for visualization. Complete discectomy performed at this level with curette, rongure and pituitary. High speed shima used to remove osteophytes anteriorly and posteriorly until PLL was identified. 6-0 up curette then used to identify the canal and resect the PLL. 2-0 and 3-0 Kerrison used then to remove PLL and disc herniation and performed b/l foraminotomies. Once good decompression was accomplished, meticulous hemostasis was performed. Sizers were then placed under lateral fluoroscopy until the desired height and lordosis. Cage was then selected, packed with autograft and allograft and placed under lateral imaging. Once in good position it was tested and stable. Motors run before and after cage placement were stable. The wound was irrigated, and autograft placed lateral to the cage anteriorly for fusion. Girard pin was then removed from C7 and placed into C5. Gentle distraction taken out over C5-6 now. Complete discectomy done at C5-6 as described including decompression, b/l foraminotomies and PLL resection. Burring of endplates was minimal, osteophytes removed as described. Spacers were then sized and placed under lateral imaging. Cage selected, packed with graft and placed under lateral images. Once in position, meticulous hemostasis performed, and motors remained stable before and after cage placement. AP image confirmed good placement of cages. Wound was irrigated. We then proceeded with anterior fixation. Fixed screws drilled and placed into C7 Then into C6 and finally C5 with variable screws. All locking mechanisms were set, and all screws had good purchase. Final AP and lateral images taken confirmed good placement of hardware and good reduction and methodist of height. The wound was then irrigated copiously with NSS. Surgicel placed deep in the wound. A deep drain placed out a separate incision and sewed into place. Layered closure then performed with 3-0 Vicryl in the platysma and subQ tissue. 4-0 Strata fix in the subcuticular tissue. The wound was then cleaned, and dried and skin glue placed. Once glue dried on Opifoam was placed. The patient was then transferred back to their hospital bed a-traumatically. The drain continued to hold suction. They were placed in a soft collar. They we re then awakened by the department of anesthesia having tolerated the procedure well without complications.
[2023-10-23] MEDS: HYDROcodone/APAP 10-325MG 1 EACH TAB PO PRN (20:20)
[2023-10-23] MEDS: PREGABALIN 75 MG CAP PO SCH (20:20)
[2023-10-23] MEDS: CYCLOBENZAPRINE 10 MG TAB PO PRN (21:53)
--- NOTE | 2023-10-23 22:10 | FL ---
EXAMINATION TYPE: FL guidance operating room Intraoperative/procedural fluoroscopic services were pro vided. Total fluoroscopy time is 21 seconds with a total of 5 submitted images to PACS. Please see th e operative/procedural note for further details. DAP: 1.046 mGym2 Gycm2 uGym2 cGycm2
[2023-10-24] MEDS: oxyCODONE-APAP 7.5-325MG 1 EACH TAB PO PRN (00:19)
[2023-10-24] MEDS: ONDANSETRON 4 MG/2 ML VIAL IVP PRN (00:19)
[2023-10-24 07:18] LABS: Glucose,Whole Blood 305 mg/dL (70-110)
[2023-10-24] MEDS ORDERED: DEXTROSE 50% SYRINGE 50 ML IVP PRN ×2 (08:58)
--- NOTE | 2023-10-24 08:58 | P.CONS ---
History of Present Illness - Reason for Consult Consult date: 10/24/23 Medical Management Requesting physician: Ronaldo Graf - History of Present Illness History of Presenting Illness: Patient is a very pleasant 42-year-old female with a past medical history of insulin-dependent diabetes mellitus, hypertension, GERD with gastroparesis, asthma with COPD, fibromyalgia, and rheumatoid arthritis. She is currently admitted under orthospine surgery team status post cervical arthrodesis with insertion of biomechanical cage completed by Dr. Graf on 10/23/2023. We were consulted for medical management throughout patient's hospitalization. Patient seen and fully evaluated at bedside. She is postoperative day 1. Ambrocio bateman reports feeling "miserable". She reports moderate pain, experiencing postoperative nausea and acid reflux. She denies having any headache, lightheadedness, dizziness, chest pain, palpitations, shortness of breath, or experiencing any numbness/tingling/weakness in her extremities. Patient denies any difficulty swallowing and is tolerating oral intake with full liquid diet. Postoperative dressing remains in place to anterior neck. Review of systems: Pertinent positives and negatives as discussed in HPI, a complete review of systems was performed and all other systems are negative. Physical exam: Vital signs reviewed and stable. General: Nontoxic, no distress and appears stated age. Derm: Skin warm and dry, normal coloration for ethnicity. Head: Atraumatic, normocephalic and symmetric. Postoperative dressing in place to anterior neck and is clean, dry, and intact. Eyes: EOMs intact, no lid lag, and anicteric sclera Mouth: no lip lesions, mucus membranes moist Cardiovascular: regular rate and rhythm with normal S1S2, no murmur, positive posterior tibial pulses bilaterally, and cap refill < 2 seconds. Lungs: Respirations even, regular, and unlabored on room air. Lungs CTA bilaterally, no rhonchi, no rales, no wheezing, and no accessory muscle usage. Abdominal: soft, nontender to palpation, no guarding, no appreciable organomegaly Ext: ROM intact. No gross muscle atrophy, no edema, no contractures Neuro: Speech clear, face symmetrical and CN II-XII grossly intact with no noted focal neuro deficits Psych: Alert and oriented to person, place, time, and situation. Appropriate and pleasant affect. Assessment and Plan of Care: Status post cervical arthrodesis with insertion of biomechanical cage Management per primary admitting orthospine surgery team including wound/dressing/drain management, DVT prophylaxis, advancement of diet, and pain management. Insulin-dependent diabetes mellitus with hyperglycemia Patient to continue Levemir 60 units daily and was placed on glycemic protocol with NovoLog sliding scale. Hemoglobin A1c. Postoperative nausea and acid reflux GERD Continue with Zofran 4 mg IVP every 8 hours as needed for nausea and/or vomiting. GI prophylaxis with Protonix 40 mg daily. If persistent will place order for GI cocktail consisting of Maalox, Levsin, and viscous lidocaine. Hypomagnesemia Magnesium 1.6. Orders placed for magnesium sulfate 2 g IVPB x 1 dose. Postoperative leukocytosis Believed to be reactive, no signs of infection. No need for further intervention at this time. Asthma with COPD, not in acute exacerbation Continue Symbicort twice daily along with scheduled DuoNebs 4 times daily and as needed for shortness of breath and/or wheezing. Hypertension Continue daily medication regimen with lisinopril 5 mg nightly. Data reviewed: Reviewed and reordered home medications. Postoperative labs reviewed. CBC showing leukocytosis with WBC count of 22.94 and stable postoperative hemoglobin of 14.7 with preoperative hemoglobin of 16.7. BMP showing mild hyponatremia with sodium of 132 otherwise normal findings. Magnesium was slightly low at 1.6. Vital signs reviewed. Blood pressure 164/78, heart rate 73, respiratory rate 20, temp 97.4 F, and SpO2 of 98% on room air. Thank you for allowing us to participate in the care of this pleasant patient. Do not hesitate to contact us with questions. Someone can be reached from the [facility] hospitalist group all hours of the day at [phone] or via perfect serve. Patient was seen independently by Nurse Practitioner. This document was prepared using Action dictation software. Please allow for errors in piece maker while rare they do occur. I reviewed the documentation as provided by the DAIN above, who is the original author of this note. I agree with the documented assessment and plan, with the following changes: none Past Medical History Past Medical History: Asthma, Cancer, COPD, Diabetes Mellitus, Fibromyalgia, GERD/Reflux, Hyperlipidemia, Hypertension, Musculoskeletal Disorder, Ost eoarthritis (OA), Pneumonia, Rheumatoid Arthritis (RA), Sleep Apnea/CPAP/BIPAP Additional Past Medical History / Comment(s): Endometriosis. Varicose veins. Memory loss from Fibromyalgia. Migraines, has had "black outs". Episodes of vomiting related to anxiety, Gastroparesis, IBS, Hx Cervical cancer 10 yrs ago. "Kidney/liver issues (elevated liver enzymes) due to Diabetes". DDD,stage 1 kidney disease, hx. slow heart rate @times, doesn't use anything for sleep apnea,resolving resp. infection, recent dx. torticollis History of Any Multi-Drug Resistant Organisms: None Reported Past Surgical History: Back Surgery, Bladder Surgery, Section, Cholecystectomy, Tubal Ligation, Uterine Ablation Additional Past Surgical History / Comment(s): Section X3, cervix removed, D&C. Past Anesthesia/Blood Transfusion Reactions: Motion Sickness, Postoperative Nausea & Vomiting (PONV) Additional Past Anesthesia/Blood Transfusion Reaction / Comm: Grandmother hard to wake up, usually needs motion sickness patch Past Psychological History: Anxiety, Bipolar, Depression Additional Psychological History / Comment(s): Personality disorder. Smoking Status: Former smoker Past Alcohol Use History: None Reported Additional Past Alcohol Use History / Comment(s): Quit smoking on and off many times, last quit 15 yrs ago. Past Drug Use History: Marijuana Additional Drug Use History / Comment(s): Daily Marijuana use, "has Medical Marijuana Card". Aware no use 24 hrs prior to procedure. - Past Family History Father Family Medical History: Cancer Medications and Allergies Home Medications Medication Instructions Recorded Confirmed Type lisinopriL [Prinivil] 5 mg PO HS 02/13/16 10/20/23 History Dicyclomine [Bentyl] 20 mg PO QID 11/30/20 10/20/23 History INSULIN LISPRO (humaLOG) [humaLOG] See Protocol SQ AC-TID PRN 11/30/20 10/20/23 History Insulin Glargine,Hum.rec.anlog 60 unit SQ 0800 11/30/20 10/20/23 History [Lantus Solostar] Omeprazole [PriLOSEC] 20 mg PO BID 11/30/20 10/20/23 History Ibuprofen [Motrin] 800 mg PO TID 03/15/21 10/20/23 History Albuterol Nebulized [Ventolin 2.5 mg INHALATION RT-QID PRN 12/11/21 10/20/23 History Nebulized] Linaclotide [Linzess] 145 mcg PO DAILY PRN 12/11/21 10/20/23 History ALPRAZolam [Xanax] 1 mg PO TID PRN 09/23/22 10/20/23 History Albuterol Inhaler [Ventolin Hfa 1 - 2 puff INHALATION RT-QID PRN 09/23/22 10/20/23 History Inhaler] Cyclobenzaprine [Flexeril] 10 mg PO BID PRN 10/10/22 10/20/23 History Ergocalciferol (Vitamin D2) 1,250 mcg PO QMONTHLY 10/10/22 10/20/23 History [Drisdol (50,000 Iu)] Ondansetron [Zofran] 4 mg PO DAILY PRN 10/10/22 10/20/23 History Pregabalin [Lyrica] 150 mg PO TID 10/10/22 10/20/23 History Fluticasone/Umeclidin/Vilanter 1 inh INHALATION 1400 10/20/23 10/20/23 History [Markellledestin Ellipta 200-62.5-25] Allergies Allergy/AdvReac Type Severity Reaction Status Date / Time trimethobenzamide HCl Allergy Dyspnea, Verified 10/23/23 11:42 [From Tigan] tongue swelled, hives Physical Exam Osteopathic Statement: *. No significant issues noted on an osteopathic structural exam other than those noted in the History and Physical/Consult. Vitals: Vital Signs Temp Pulse Pulse Resp BP BP Pulse Ox 10/24/23 07:10 97.4 F L 73 20 164/78 98 10/24/23 01:27 97.9 F 72 18 180/77 97 10/23/23 19:37 97.8 F 70 18 184/81 95 10/23/23 17:56 98.2 F 79 19 149/83 94 L 10/23/23 17:02 67 16 163/79 94 L 10/23/23 16:45 70 16 146/67 94 L 10/23/23 16:32 69 16 165/66 94 L 10/23/23 16:00 73 16 188/95 94 L 10/23/23 15:55 97 F L 73 16 184/77 95 10/23/23 11:45 97.8 F 73 16 142/72 98 Intake and Output 10/23/23 10/24/23 10/24/23 22:59 06:59 14:59 Intake Total 0 Output Total 125 325 Balance -125 -325 Intake: IV 0 Output: Urine 100 325 Estimated Blood Loss 25 Other: Voiding Method Indwelling Catheter Weight 108.3 kg Results CBC & Chem 7: 10/24/23 06:46 10/24/23 06:46 Labs: Abnormal Lab Results - Last 24 Hours (Table) 10/23/23 10/23/23 10/24/23 Range/Units 11:59 12:10 07:16 WBC 13.4 H (3.8-10.6) k/uL Hgb 16.7 H (11.4-16.0) gm/dL Hct 48.8 H (34.0-46.0) % Neutrophils # 7.9 H (1.3-7.7) k/uL POC Glucose (mg/dL) 170 H 305 H (70-110) mg/dL
[2023-10-24] MEDS ORDERED: ALPRAZolam 1 MG TAB PO PRN (08:59)
[2023-10-24] MEDS ORDERED: Linaclotide [Linzess] 145 MCG Capsule PO PRN (09:00)
--- NOTE | 2023-10-24 09:57 | P.PN ---
Subjective Progress Note Date: 10/24/23 Principal diagnosis: Status post C5-C7 ACDF Patient was evaluated today at bedside, she was actually visualized ambulating with physical therapy. Patient states that she is having some generalized anterior neck pain at this time. She has been having no difficulties with swallowing. She has dealt with some excess drainage from the drain site onto the bandage. The drain that was present did become dislodged when patient was ambulating. Patient's sugars were noted to be significantly elevated, she had not been restarted on her insulin. Currently patient has no headaches, lightheadedness, chest pain or shortness of breath Objective - Vital Signs Vital signs: Vital Signs Temp 97.4 F L 10/24/23 07:10 Pulse 73 10/24/23 07:10 Resp 20 10/24/23 07:10 BP 164/78 10/24/23 07:10 Pulse Ox 98 10/24/23 07:10 FiO2 Intake & Output 10/23/23 10/24/23 10/24/23 18:59 06:59 18:59 Intake Total 1850 Output Total 125 325 Balance 1725 -325 Weight 108.3 kg Intake: IV 1850 Output: Urine 100 325 Estimated Blood Loss 25 Other: Voiding Method Indwelling Catheter - Exam Gen: AOx3, NAD VSS stable at this time Integument: Postop dressing and drain material was removed today at bedside. No excessive swelling is present near these areas. 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 Lyrica 150 mg along with Flexeril 10 mg are available Wound care, new dressing was placed today, continue to monitor Patient was having a very difficult time tolerating the rigid c-collar, I explained why we would try to use this to provide more stability. Patient was made aware if the brace is not can be done she needs to avoid excess motion, this to include extension and flexion of the neck. Weight-bear as tolerated, recommend the use of a walker Restart insulin today monitor blood sugars Other medical specialty recommendations appreciated Discharge planning: Would like patient to stay in the hospital least 1 additional night for blood sugar control and pain control. Discussed the p ossibility of going home on 10/25/2023 pending availability of medications in the outpatient pharmacy setting Time with Patient: Less than 30
[2023-10-24] MEDS: ALBUTEROL NEBULIZED 2.5 MG/3 ML INHALATION PRN (09:58)
[2023-10-24] MEDS: ERGOCALCIFEROL 1,250 MCG (50,000 IU) CAPSULE PO SCH (10:41)
[2023-10-24] MEDS: DICYCLOMINE 20 MG TAB PO SCH (10:41)
[2023-10-24] MEDS: PANTOPRAZOLE 40 MG TABLET PO SCH (10:41)
[2023-10-24] MEDS: INSULIN DETEMIR (LEVEMIR) 100 UNIT/ML SYR SQ SCH (10:42)
[2023-10-24 11:28] LABS: Glucose,Whole Blood 294 mg/dL (70-110)
[2023-10-24 11:41] LABS: African American GFR (CKD) >90 (>60 ml/min/1.73 sqM); Anion Gap 7 mmol/L; Blood Urea Nitrogen 6 mg/dL (7-17); Calcium 8.7 mg/dL (8.4-10.2); Carbon Dioxide 26 mmol/L (22-30); Chloride 99 mmol/L (98-107); Glucose 301 mg/dL (74-99); Magnesium 1.6 mg/dL (1.6-2.3); Non-African American GFR(CKD) >90 (>60 ml/min/1.73 sqM); Potassium 4.4 mmol/L (3.5-5.1); Sodium 132 mmol/L (137-145)
[2023-10-24] MEDS: IPRATROPIUM-ALBUTEROL 3 ML NEB INHALATION SCH (12:05)
[2023-10-24] MEDS: INSULIN ASPART (NovoLOG) 100 UNIT/ML VIAL SQ SCH (13:11)
[2023-10-24 13:47] LABS: Basophils # (A) 0.05 X 10*3/uL (0.00-0.10); Basophils % (A) 0.2 %; Eosinophils # (A) 0.01 X 10*3/uL (0.04-0.35); Eosinophils % (A) 0 %; HCT 44.8 % (37.2-46.3); HGB 14.7 g/dL (12.0-15.0); Lymphocytes # (A) 2.37 X 10*3/uL (0.90-5.00); Lymphocytes % (A) 10.3 %; MCH 30.8 pg (27.0-32.0); MCHC 32.8 g/dL (32.0-37.0); MCV 93.9 FL (80.0-97.0); Mean Platelet Volume 10.8 FL (9.5-12.2); Monocytes # (A) 1.27 X 10*3/uL (0.20-1.00); Monocytes % (A) 5.5 %; NRBC Per 100 WBC 0 X 10*3/uL (0.00-0.01); Neutrophils # (A) 19.09 X 10*3/uL (1.80-7.70); Neutrophils % (A) 83.3 %; Platelet Count 349 X 10*3/uL (140-440); RBC 4.77 X 10*6/uL (4.10-5.20); RDW 13.1 % (11.5-14.5); WBC 22.94 X 10*3/uL (4.50-10.00)
[2023-10-24] MEDS: MAG HYDROX/AL HYDROX/SIMETH 30 ML, HYOSCYAMINE ELIXIR 10 ML, LIDOCAINE VISCOUS 10 ML PO ONE (15:24)
[2023-10-24 16:38] LABS: Glucose,Whole Blood 267 mg/dL (70-110)
[2023-10-24] MEDS: MAGNESIUM SULFATE-D5W PMX 1 GM in DEXTROSE/WATER 1 100ML.BAG IVPB SCH (16:41)
[2023-10-24 20:06] LABS: Glucose,Whole Blood 275 mg/dL (70-110)
[2023-10-24] MEDS: lisinopriL 5 MG TAB PO SCH (22:31)
[2023-10-24] MEDS: SYMBICORT 160-4.5 MCG INHALER INHALATION SCH (22:52)
[2023-10-25 06:35] LABS: Glucose,Whole Blood 257 mg/dL (70-110)
[2023-10-25 08:22] VITALS: BP 154/91; PULSE 88; RESP 17; TEMP 98.2
--- NOTE | 2023-10-25 10:48 | P.PN ---
Subjective Progress Note Date: 10/25/23 Hospital Course: Patient is a very pleasant 42-year-old female with a past medical history of insulin-dependent diabetes mellitus, hypertension, GERD with gastroparesis, asthma with COPD, fibromyalgia, and rheumatoid arthritis. She is currently admitted under orthospine surgery team status post cervical arthrodesis with insertion of biomechanical cage completed by Dr. Graf on 10/23/2023. We were consulted for medical management throughout patient's hospitalization. Physical exam: Vital signs reviewed and stable. General: Nontoxic, no distress and appears stated age. Derm: Skin warm and dry, normal coloration for ethnicity. Head: Atraumatic, normocephalic and symmetric. Postoperative dressing in place to anterior neck and is clean, dry, and intact. Eyes: EOMs intact, no lid lag, and anicteric sclera Mouth: no lip lesions, mucus membranes moist Cardiovascular: regular rate and rhythm with normal S1S2, no murmur, positive posterior tibial pulses bilaterally, and cap refill < 2 seconds. Lungs: Respirations even, regular, and unlabored on room air. Lungs CTA bilaterally, no rhonchi, no rales, no wheezing, and no accessory muscle usage. Abdominal: soft, nontender to palpation, no guarding, no appreciable organomegaly Ext: ROM intact. No gross muscle atrophy, no edema, no contractures Neuro: Speech clear, face symmetrical and CN II-XII grossly intact with no noted focal neuro deficits Psych: Alert and oriented to person, place, time, and situation. Appropriate and pleasant affect. Assessment and Plan of Care: Status post cervical arthrodesis with insertion of biomechanical cage Management per primary admitting orthospine surgery team including wound/dressing/drain management, DVT prophylaxis, advancement of diet, and pain management. Insulin-dependent diabetes mellitus, poorly controlled. Hemoglobin A1c of 9.5%. Patient to continue Levemir 60 units daily along with NovoLog sliding scale. Recommend patient closely follow carb consistent diet and follow-up outpatient with her resource conservationist for further adjustment of her home insulin. Postoperative nausea and acid reflux, resolved. Continue with Zofran 4 mg IVP every 8 hours as needed for nausea and/or vomiting. GERD. GI prophylaxis with Protonix 40 mg daily. Hypomagnesemia, replaced Postoperative leukocytosis. Believed to be reactive, no signs of infection. No need for further intervention at this time. Asthma with COPD, not in acute exacerbation. Continue Symbicort twice daily along with scheduled DuoNebs 4 times daily and as needed for shortness of breath and/or wheezing. Hypertension. Continue daily medication regimen with lisinopril 5 mg nightly. Data reviewed: Vital signs reviewed. Blood pressure 154/91, heart rate 88, respiratory rate 17, temp 98.2 F, and SpO2 of 94% on room air. Patient cleared from medical perspective for discharge once cleared by primary admitting orthopedic surgery team. Recommend outpatient follow-up with PCP for continued close monitoring of blood pressure levels with possible increasing of dose, need to reassess blood pressure when pain is controlled. Also recommend following up with resource conservationist as diabetes appears to be poorly controlled on current insulin regimen. Thank you for allowing us to participate in the care of this pleasant patient. Do not hesitate to contact us with questions. Someone can be reached from the [facility] hospitalist group all hours of the day at [phone] or via [employer] serve. Patient was seen independently by Nurse Practitioner. This document was prepared using [employer] dictation software. Please allow for errors in tool coordinator while rare they do occur. I reviewed the documentation as provided by the DAIN above, who is the original author of this note. I agree with the documented assessment and plan, with the following changes: none Objective - Vital Signs Vital signs: Vital Signs Temp 98.2 F 10/25/23 07:13 Pulse 88 10/25/23 07:13 Resp 17 10/25/23 07:13 BP 154/91 10/25/23 07:13 Pulse Ox 94 L 10/25/23 07:13 FiO2 Intake & Output 10/24/23 10/25/23 10/25/23 18:59 06:59 18:59 Other: Voiding Method Toilet - Labs CBC & Chem 7: 10/24/23 06:46 10/24/23 06:46 Labs: Abnormal Lab Results - Last 24 Hours (Table) 10/24/23 10/24/23 10/24/23 Range/Units 06:46 06:46 06:46 WBC 22.94 H (4.50-10.00) X 10*3/uL Immature Gran # 0.15 H (0.00-0.04) X 10*3/uL Neutrophils # 19.09 H (1.80-7.70) X 10*3/uL Monocytes # 1.27 H (0.20-1.00) X 10*3/uL Eosinophils # 0.01 L (0.04-0.35) X 10*3/uL Sodium 132 L (137-145) mmol/L BUN 6 L (7-17) mg/dL Creatinine 0.50 L (0.52-1.04) mg/dL Glucose 301 H (74-99) mg/dL POC Glucose (mg/dL) (70-110) mg/dL Hemoglobin A1c 9.5 H (<=6.0) % 10/24/23 10/24/23 10/24/23 Range/Units 11:26 16:36 20:03 WBC (4.50-10.00) X 10*3/uL Immature Gran # (0.00-0.04) X 10*3/uL Neutrophils # (1.80-7.70) X 10*3/uL Monocytes # (0.20-1.00) X 10*3/uL Eosinophils # (0.04-0.35) X 10*3/uL Sodium (137-145) mmol/L BUN (7-17) mg/dL Creatinine (0.52-1.04) mg/dL Glucose (74-99) mg/dL POC Glucose (mg/dL) 294 H 267 H 275 H (70-110) mg/dL Hemoglobin A1c (<=6.0) % 10/25/23 Range/Units 06:33 WBC (4.50-10.00) X 10*3/uL Immature Gran # (0.00-0.04) X 10*3/uL Neutrophils # (1.80-7.70) X 10*3/uL Monocytes # (0.20-1.00) X 10*3/uL Eosinophils # (0.04-0.35) X 10*3/uL Sodium (137-145) mmol/L BUN (7-17) mg/dL Creatinine (0.52-1.04) mg/dL Glucose (74-99) mg/dL POC Glucose (mg/dL) 257 H (70-110) mg/dL Hemoglobin A1c (<=6.0) %
--- NOTE | 2023-10-25 11:11 | P.PN ---
Subjective Progress Note Date: 10/25/23 Principal diagnosis: Status post C5-C7 ACDF Patient was evaluated today at bedside, she is resting in her hospital bed. Currently patient has no headaches, lightheadedness, chest pain or shortness of breath Objective - Vital Signs Vital signs: Vital Signs Temp 98.2 F 10/25/23 07:13 Pulse 88 10/25/23 07:13 Resp 17 10/25/23 07:13 BP 154/91 10/25/23 07:13 Pulse Ox 94 L 10/25/23 07:13 FiO2 Intake & Output 10/24/23 10/25/23 10/25/23 18:59 06:59 18:59 Other: Voiding Method Toilet - Exam Gen: AOx3, NAD VSS stable at this time Integument: Postop dressing is in good position, no drainage Palpation: Mild tenderness with palpation noted to the right sided anterior neck ROM: Full range of motion in all major muscle groups of the bilateral upper and lower extremities Sensory Exam: Senory exam to light touch is intact C5-T1 Senosry exam to light touch is intact L2-S1 Motor: 4/5 strength appreciated in the bilateral upper extremities with shoulder elevation, shoulder abduction, elbow extension, elbow flexion, wrist extension, wrist flexion, 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 Reflexes: 2/4 in all UE and LE Negative Mikel's, Babinski, clonus bilaterally - Labs CBC & Chem 7: 10/24/23 06:46 10/24/23 06:46 Labs: Abnormal Lab Results - Last 24 Hours (Table) 10/24/23 10/24/23 10/24/23 Range/Units 06:46 06:46 06:46 WBC 22.94 H (4.50-10.00) X 10*3/uL Immature Gran # 0.15 H (0.00-0.04) X 10*3/uL Neutrophils # 19.09 H (1.80-7.70) X 10*3/uL Monocytes # 1.27 H (0.20-1.00) X 10*3/uL Eosinophils # 0.01 L (0.04-0.35) X 10*3/uL Sodium 132 L (137-145) mmol/L BUN 6 L (7-17) mg/dL Creatinine 0.50 L (0.52-1.04) mg/dL Glucose 301 H (74-99) mg/dL POC Glucose (mg/dL) (70-110) mg/dL Hemoglobin A1c 9.5 H (<=6.0) % 10/24/23 10/24/23 10/24/23 Range/Units 11:26 16:36 20:03 WBC (4.50-10.00) X 10*3/uL Immature Gran # (0.00-0.04) X 10*3/uL Neutrophils # (1.80-7.70) X 10*3/uL Monocytes # (0.20-1.00) X 10*3/uL Eosinophils # (0.04-0.35) X 10*3/uL Sodium (137-145) mmol/L BUN (7-17) mg/dL Creatinine (0.52-1.04) mg/dL Glucose (74-99) mg/dL POC Glucose (mg/dL) 294 H 267 H 275 H (70-110) mg/dL Hemoglobin A1c (<=6.0) % 10/25/23 Range/Units 06:33 WBC (4.50-10.00) X 10*3/uL Immature Gran # (0.00-0.04) X 10*3/uL Neutrophils # (1.80-7.70) X 10*3/uL Monocytes # (0.20-1.00) X 10*3/uL Eosinophils # (0.04-0.35) X 10*3/uL Sodium (137-145) mmol/L BUN (7-17) mg/dL Creatinine (0.52-1.04) mg/dL Glucose (74-99) mg/dL POC Glucose (mg/dL) 257 H (70-110) mg/dL Hemoglobin A1c (<=6.0) % Assessment and Plan Assessment: Postoperative day #2 status post C5-C7 ACDF Plan: Pain control, plan for discharge with Percocet and Lyrica Wound care was discussed with patient, this to include showering Discussed with patient the need to try to use the rigid c-collar to help with stabilization Weight-bear as tolerated, recommend the use of a walker Other medical specialty recommendations appreciated Discharge planning: Stable for discharge home today Time with Patient: Less than 30
--- NOTE | 2023-10-25 11:13 | P.DS ---
Providers Date of admission: 10/23/2023 Expected date of discharge: 10/25/23 Attending physician: Ronaldo Graf DO Consults: 10/23/23 16:12 Consult Physician Routine Consulting Provider: Jared Holguin Consult Reason/Comments: Medical Management Do you want consulting provider notified?: Yes Primary care physician: Anthony Morrell MD Hospital Course: Date of admission: 10/23/2023 Date of discharge: 10/25/2023 Admission diagnosis: Status post C5-C7 ACDF Discharge diagnosis: Same Attending physician: Dr. Graf Surgical procedures: C5-C7 ACDF Brief history: Patient is a 42-year-old female who has followed in the outpatient setting with Dr. Graf with regards to severe posterior cervical pain along with bilateral upper extremity weakness and radiculopathy. Patient has failed conservative measures, she was scheduled for a elective C5-C7 ACDF. Hospital course: Details of patient's surgery can be found in operative report. Patient tolerated the procedure well and was subsequently transported to orthopedic floor. Patient's orthopeidc and medical care was provided daily. Patient had daily laboratory tests performed for evaluation of overall blood counts. Patient had daily physical therapy to include strengthening range of motion as well as education with walker ambulation. Patient was treated with heparin for their postoperative DVT prophylaxis during their inpatient stay. Patient was noted to have a relatively uneventful postoperative course. Patient reported satisfactory pain control with oral pain medications by postoperative day 1. Patient showed satisfactory progress with physical therapy. Patient moved steadily through the program and had no difficulty meeting the goals by postoperative day 2. Given patient's otherwise satisfactory course and having met physical therapy goals, plan is to discharge patient home on postoperative day 2. Discharge condition/disposition: Patient will be discharged home in stable condition. Discharge medications: Instructions are given on resumption of patient's normal daily medications per primary care recommendation, in addition patient will be prescribed Percocet 10 mg / 325 mg, Lyrica 150 mg, senna S, Duricef 500 mg. Spine Discharge and Recovery Instructions Dressing: Leave your dressing in place for a total of 5 days post operatively. Then you may remove your dressing and leave open to air. Keep the area clean and if not able to keep area clean, then cover with sterile gauze and tape. Showering: You may shower 3 days after your procedure allowing soap and water to run over incision. Do not scrub. Do not soak. Blot dry. Follow up: Please confirm a follow up appointment with your surgeon 3 weeks post operatively. Please make an appointment to follow up with your PCP in 1-2 weeks after surgery for evaluation `3 phase, 3-week plan POST OP WEEKS 1-3 1. Lifting/carrying/pushing/pulling limited to less than 5 pounds. 2. Do not sit for longer than 15 minutes at one time. Get up and walk around. Prolonged sitting is NOT advised. If you lay down, see if you can tolerate laying down on you front (belly side) 3. Walk for periods of 15 minutes = 1 mile but no longer; do it multiple times times each day. 4. Ice your low back after activity. POST OP WEEKS 3-6 1. Lifting limited to less than 20 pounds. 2. Do not sit for longer than 30 minutes at a time. Frequently change positions. Use a sit-to stand workstation or take frequent breaks from sitting if you have returned to work. 3. Walk for 30 minutes each day. If possible, do these three or more times a day POST OP WEEKS 6+ At your 6-week appointment we will give you a physical therapy referral to focus on a core stabilization and strengthening program. You should also work on leg & buttock strengthening, hamstring & quadriceps stretching, and continue a low impact aerobic activity program such as swimming, walking, or riding a stationary bicycle. During the initial 6 weeks after your surgery, you are at the highest risk of re-injuring your spine. You should generally avoid BLTs (bending, lifting and twisting combination motions) and follow the above guidelines to reduce the chance of reinjury. You can anticipate post op appointments in our office at approximately 3 weeks and 6 weeks after your surgery. INCISION CARE: If your incision is not draining you do NOT need to cover it with a dressing. Keep your incision clean, dry and intact. In most cases, we apply skin glue, breann or sutures to the incision at the time of surgery. This will be like a crust or have the appearance of a scab and will fall off in time on its own. The stitches or breann need to be removed at 3 weeks post op appointment. You may begin to shower 3 days after surgery (this allows the glue to kidd well). However, please avoid scrubbing the incision site or peeling off any of the skin glue. This will ensure optimal healing of your incision. Also, during this time avoid soaking the incision area in water - this includes swimming pools, hot tubs or baths. No ointments, lotions or oils on the incision until your surgeon allows. Leave brenan, sutures or glue in place. Neurological dysfunction that comes on suddenly can also be a sign of a stroke. Below some common symptoms of a stroke are listed: B - balance difficulty such as sudden onset walking or leaning to one side - NEW E - eye problem such as sudden double vision or trouble seeing on one side - NEW F - Facial weakness or numbness on one side - NEW A - Arm or leg weakness or numbness on one side - NEW S - Slurred speech or difficulty with word finding - NEW T - Time is BRAIN! Call 911 as soon as you recognize these symptoms Diet: Consume a regular diet rich in vegetables and lean protein such as chicken or fish. You should consume in a ratio of approximately 20% fats|40% carbohydrates|40%protein. Vegetables, sweet potatoes, brown rice or quinoa are examples of good carbohydrates. Chips, white bread, cookies and sweets/sugar are examples of bad carbohydrates. Limit your bad carbs, go wild with good carbs. "Life's Simple 7" Guidelines as per [place] [employer] These will help you reclaim your life after surgery and kiln firer helper in your recovery, keeping in mind your restrictions. (1) Get Active. Physical activity can help people lose weight, control high blood pressure and cholesterol, feel emotionally better, and sleep better. (2) Control Cholesterol. Avoid a diet high in saturated fat, trans fat, & cholesterol. Limit whole milk & cream, ice cream, butter, egg yolks, processed meats (like sausage and hot dogs), and fatty meats. Choose healthy foods that are low in saturated fat, trans fat and cholesterol which include: Fruits and vegetables, fiber rich grain products (like whole gra in pasta and brown rice), lean meat such as chicken, fish, nuts, seeds, and legumes. (3) Eat Better. Eat small portions. Shop at the grocery with a list and do not stray from it. Tips for a healthy diet include: Limit sodium intake to less than 1500mg daily, avoid prepackaged, processed, and fast foods, choose a diet rich in fruits, vegetables, and whole grain, high fiber foods, and limit saturated & cholesterol in your diet. (4) Manage Blood Pressure. If you have high blood pressure, you should have a cuff at home so that you can check your blood pressure regularly. Be sure you have a good cuff. An arm one is generally better than a wrist one. Bring the cuff to a doctor's appointment to validate that the measurements that your cuff are taking are accurate. Take your blood pressure twice daily when you are sitting down and relaxing. Record the numbers in a log and bring this log with you to your doctors' appointments. (5) Lose Weight if your BMI is above 25. A healthy BMI is between 19-25. To calculate Your BMI, you may use a Standard BMI Calculator on the NIH BMI website: <www.nhlbi.nih.gov/guidelines/obesity/BMI/bmicalc.htm>. Weigh oneself daily. If you are overweight, set a goal to lose weight. A pound a week loss if needed is a good target. (6) Reduce Blood Sugar. Limit foods and liquids with "added sugars." (Added sugars include sucrose, fructose, glucose, maltose, dextrose, high fructose corn syrup, corn syrup, concentrated fruit juice and honey). (7) Stop Smoking. If you smoke, quitting smoking is one of the best things that you can do for your health. Smoking increases your risk of heart attack, stroke, and peripheral vascular disease, which is a build-up of plaque in your arteries. Please discard all the cigarettes and lighters in your house. Have a plan for what you will do when you have the urge to smoke. Direct and second- hand smoke shortens your life as well as the lives of your family, friends and others around you. For your health and the health of those around you, please consider quitting! Proper Bending Body Mechanics: Maintain a wide stance with one foot slightly in front of the other. Keep your back straight. Bend utilizing the strength in your hips and knees. Do not bend at the waist. Maintain the lifted object at your waist-level close to your body. Avoid lifting weight that causes immediately pain or pain anywhere in the body afterwards. Smoking/Nicotine If there was ever one thing that you could do to increase your overall health, decrease your risk of cardiovascular problems by about 39% the second you make the choice, it is to STOP SMOKING. Your body's most instant gratification is the second you stop smoking. We have all heard the studies, read the articles but it is true, smoking is extremely bad for your overall health, and moreover it is detrimental to your bone health. Nicotine, IN ANY FORM, kills bone cells, prevents your body from healing fractures, and significantly prolongs healing after surgery. In spine surgery specifically, it increases your risk of not healing your bones to create a fusion and increases your risk of having a revision surgery due to this up to 60%. I know it is hard. I know it feels impossible. But there are ways. Take control of your life. We are here to help you through it. And when you are ready, ask us and we can direct you to help if you desire. Use the START Plan to Quit Smoking (please visit the Helpguide.org website listed below for more information): S = Set a quit date. Choose a date within the next 2 weeks, so you have enough time to prepare without losing your motivation to quit. If you mainly smoke at work, quit on the weekend, so you have a few days to adjust to the change. T = Tell family, friends, and co-workers that you plan to quit. Let your friends and family in on your plan to quit smoking and tell them you need their support and encouragement to stop. Look for a quit jennifer who wants to stop smoking as well. You can help each other get through the rough times. A = Anticipate and plan for the challenges you'll face while quitting. Most people who begin smoking again do so within the first 3 months. You can help yourself make it through by preparing ahead for common challenges, such as nicotine withdrawal and cigarette cravings. R = Remove cigarettes and other tobacco products from your home, car, and work. Throw away all your cigarettes (no emergency pack!), lighters, ashtrays, and m atches. Wash your clothes and freshen up anything that smells like smoke. Shampoo your car, clean your drapes and carpet, and steam your furniture. T = Talk to your doctor about getting help to quit. Your doctor can prescribe medication to help with withdrawal and suggest other alternatives. If you can't see a doctor, you can get many products over the counter at your local pharmacy or grocery store, including the nicotine patch, nicotine lozenges, and nicotine gum. Resources for Quitting Smoking: <https://www.[place].gov/documents/[facility]/Quit_Tobacco_Resources_for_patients_313 480_7.pdf> Supplementation: Take recommended dosages of Vitamin D and Calcium to help fortify your bones and help them to heal. See your health maintenance packet for dosages and recommended levels. DVT/VTE prophylaxis: You will be given compression stockings from the hospital. Wear these daily for the first two weeks after surgery. You may take them off at night. You may be prescribed a medication to help thin your blood. Take this as directed. If you are not prescribed this medication, early and frequent ambulation has been shown to be the best prophylaxis to deep vein thrombosis and sequelae related to this event. Procedures: C5-C7 ACDF Patient Condition at Discharge: Good Plan - Discharge Summary Discharge Rx Participant: No New Discharge Prescriptions: New cefaDROXiL [Duricef] 500 mg PO Q12HR 5 Days #10 cap Sennosides/Docusate Sodium [Senna-S 8.6-50 mg Tablet] 2 each PO DAILY PRN #30 tablet PRN Reason: Constipation Pregabalin [Lyrica] 150 mg PO BID #30 cap oxyCODONE HCL/ACETAMINOPHEN [Percocet 10-325 mg] 1 tab PO Q6HR PRN 7 Days #28 tab PRN Reason: Pain Discontinued Pregabalin [Lyrica] 150 mg PO TID No Action lisinopriL [Prinivil] 5 mg PO HS Dicyclomine [Bentyl] 20 mg PO QID Insulin Glargine,Hum.rec.anlog [Lantus Solostar] 60 unit SQ 0800 INSULIN LISPRO (humaLOG) [humaLOG] See Protocol SQ AC-TID PRN PRN Reason: Blood Sugar - High Ibuprofen [Motrin] 800 mg PO TID Linaclotide [Linzess] 145 mcg PO DAILY PRN PRN Reason: Constipation ALPRAZolam [Xanax] 1 mg PO TID PRN PRN Reason: Anxiety Albuterol Inhaler [Ventolin Hfa Inhaler] 1 - 2 puff INHALATION RT-QID PRN PRN Reason: Shortness Of Breath Ergocalciferol (Vitamin D2) [Drisdol (50,000 Iu)] 1,250 mcg PO QMONTHLY Fluticasone/Umeclidin/Vilanter [Trelegy Ellipta 200-62.5-25] 1 inh INHALATION 1400 Omeprazole [PriLOSEC] 20 mg PO BID Albuterol Nebulized [Ventolin Nebulized] 2.5 mg INHALATION RT-QID PRN PRN Reason: Shortness Of Breath Ondansetron [Zofran] 4 mg PO DAILY PRN PRN Reason: Nausea And Vomiting Cyclobenzaprine [Flexeril] 10 mg PO BID PRN PRN Reason: Muscle Spasm Discharge Medication List lisinopriL [Prinivil] 5 mg PO HS 02/13/16 [History] Dicyclomine [Bentyl] 20 mg PO QID 11/30/20 [History] INSULIN LISPRO (humaLOG) [humaLOG] See Protocol SQ AC-TID PRN 11/30/20 [History] Insulin Glargine,Hum.rec.anlog [Lantus Solostar] 60 unit SQ 0800 11/30/20 [History] Omeprazole [PriLOSEC] 20 mg PO BID 11/30/20 [History] Ibuprofen [Motrin] 800 mg PO TID 03/15/21 [History] Albuterol Nebulized [Ventolin Nebulized] 2.5 mg INHALATION RT-QID PRN 12/11/21 [History] Linaclotide [Linzess] 145 mcg PO DAILY PRN 12/11/21 [History] ALPRAZolam [Xanax] 1 mg PO TID PRN 09/23/22 [History] Albuterol Inhaler [Ventolin Hfa Inhaler] 1 - 2 puff INHALATION RT-QID PRN 09/23/22 [History] Cyclobenzaprine [Flexeril] 10 mg PO BID PRN 10/10/22 [History] Ergocalciferol (Vitamin D2) [Drisdol (50,000 Iu)] 1,250 mcg PO QMONTHLY 10/10/22 [History] Ondansetron [Zofran] 4 mg PO DAILY PRN 10/10/22 [History] Fluticasone/Umeclidin/Vilanter [Trelegy Ellipta 200-62.5-25] 1 inh INHALATION 1400 10/20/23 [History] Pregabalin [Lyrica] 150 mg PO BID #30 cap 10/25/23 [Rx] Sennosides/Docusate Sodium [Senna-S 8.6-50 mg Tablet] 2 each PO DAILY PRN #30 tablet 10/25/23 [Rx] cefaDROXiL [Duricef] 500 mg PO Q12HR 5 Days #10 cap 10/25/23 [Rx] oxyCODONE HCL/ACETAMINOPHEN [Percocet 10-325 mg] 1 tab PO Q6HR PRN 7 Days #28 tab 10/25/23 [Rx] Follow up Appointment(s)/Referral(s): Ronaldo Graf DO [Doctor of Osteopathic Medicine] - 2 Weeks Activity/Diet/Wound Care/Special Instructions: Spine Discharge and Recovery Instructions Dressing: Leave your dressing in place for a total of 5 days post operatively. Then you may remove your dressing and leave open to air. Keep the area clean and if not able to keep area clean, then cover with sterile gauze and tape. Showering: You may shower 3 days after your procedure allowing soap and water to run over incision. Do not scrub. Do not soak. Blot dry. Follow up: Please confirm a follow up appointment with your surgeon 3 weeks post operatively. Please make an appointment to follow up with your PCP in 1-2 weeks after surgery for evaluation `3 phase, 3-week plan POST OP WEEKS 1-3 1. Lifting/carrying/pushing/pulling limited to less than 5 pounds. 2. Do not sit for longer than 15 minutes at one time. Get up and walk around. Prolonged sitting is NOT advised. If you lay down, see if you can tolerate laying down on you front (belly side) 3. Walk for periods of 15 minutes = 1 mile but no longer; do it multiple times times each day. 4. Ice your low back after activity. POST OP WEEKS 3-6 1. Lifting limited to less than 20 pounds. 2. Do not sit for longer than 30 minutes at a time. Frequently change positions. Use a sit-to stand workstation or take frequent breaks from sitting if you have returned to work. 3. Walk for 30 minutes each day. If possible, do these three or more times a day POST OP WEEKS 6+ At your 6-week appointment we will give you a physical therapy referral to focus on a core stabilization and strengthening program. You should also work on leg & buttock strengthening, hamstring & quadriceps stretching, and continue a low impact aerobic activity program such as swimming, walking, or riding a stationary bicycle. During the initial 6 weeks after your surgery, you are at the highest risk of re-injuring your spine. You should generally avoid BLTs (bending, lifting and twisting combination motions) and follow the above guidelines to reduce the chance of reinjury. You can anticipate post op appointments in our office at approximately 3 weeks and 6 weeks after your surgery. INCISION CARE: If your incision is not draining you do NOT need to cover it with a dressing. Keep your incision clean, dry and intact. In most cases, we apply skin glue, breann or sutures to the incision at the time of surgery. This will be like a crust or have the appearance of a scab and will fall off in time on its own. The stitches or breann need to be removed at 3 weeks post op appointment. You may begin to shower 3 days after surgery (this allows the glue to kidd well). However, please avoid scrubbing the incision site or peeling off any of the skin glue. This will ensure optimal healing of your incision. Also, during this time avoid soaking the incision area in water - this includes swimming pools, hot tubs or baths. No ointments, lotions or oils on the incision until your surgeon allows. Leave breann, sutures or glue in place. Neurological dysfunction that comes on suddenly can also be a sign of a stroke. Below some common symptoms of a stroke are listed: B - balance difficulty such as sudden onset walking or leaning to one side - NEW E - eye problem such as sudden double vision or trouble seeing on one side - NEW F - Facial weakness or numbness on one side - NEW A - Arm or leg weakness or numbness on one side - NEW S - Slurred speech or difficulty with word finding - NEW T - Time is BRAIN! Call 911 as soon as you recognize these symptoms Diet: Consume a regular diet rich in vegetables and lean protein such as chicken or fish. You should consume in a ratio of approximately 20% fats|40% carbohydrates|40%protein. Vegetables, sweet potatoes, brown rice or quinoa are examples of good carbohydrates. Chips, white bread, cookies and sweets/sugar are examples of bad carbohydrates. Limit your bad carbs, go wild with good carbs. "Life's Simple 7" Guidelines as per [place] [employer] These will help you reclaim your life after surgery and kiln firer helper in your recovery, keeping in mind your restrictions. (1) Get Active. Physical activity can help people lose weight, control high blood pressure and cholesterol, feel emotionally better, and sleep better. (2) Control Cholesterol. Avoid a diet high in saturated fat, trans fat, & cholesterol. Limit whole milk & cream, ice cream, butter, egg yolks, processed meats (like sausage and hot dogs), and fatty meats. Choose healthy foods that are low in saturated fat, trans fat and cholesterol which include: Fruits and vegetables, fiber rich grain products (like whole grain pasta and brown rice), lean meat such as chicken, fish, nuts, seeds, and legumes. (3) Eat Better. Eat small portions. Shop at the grocery with a list and do not stray from it. Tips for a healthy diet include: Limit sodium intake to less than 1500mg daily, avoid prepackaged, processed, and fast foods, choose a diet rich in fruits, vegetables, and whole grain, high fiber foods, and limit saturated & cholesterol in your diet. (4) Manage Blood Pressure. If you have high blood pressure, you should have a c uff at home so that you can check your blood pressure regularly. Be sure you have a good cuff. An arm one is generally better than a wrist one. Bring the cuff to a doctor's appointment to validate that the measurements that your cuff are taking are accurate. Take your blood pressure twice daily when you are sitting down and relaxing. Record the numbers in a log and bring this log with you to your doctors' appointments. (5) Lose Weight if your BMI is above 25. A healthy BMI is between 19-25. To calculate Your BMI, you may use a Standard BMI Calculator on the NIH BMI website: <www.nhlbi.nih.gov/guidelines/obesity/BMI/bmicalc.htm>. Weigh oneself daily. If you are overweight, set a goal to lose weight. A pound a week loss if needed is a good target. (6) Reduce Blood Sugar. Limit foods and liquids with "added sugars." (Added sugars include sucrose, fructose, glucose, maltose, dextrose, high fructose corn syrup, corn syrup, concentrated fruit juice and honey). (7) Stop Smoking. If you smoke, quitting smoking is one of the best things that you can do for your health. Smoking increases your risk of heart attack, stroke, and peripheral vascular disease, which is a build-up of plaque in your arteries. Please discard all the cigarettes and lighters in your house. Have a plan for what you will do when you have the urge to smoke. Direct and second- hand smoke shortens your life as well as the lives of your family, friends and others around you. For your health and the health of those around you, please consider quitting! Proper Bending Body Mechanics: Maintain a wide stance with one foot slightly in front of the other. Keep your back straight. Bend utilizing the strength in your hips and knees. Do not bend at the waist. Maintain the lifted object at your waist-level close to your body. Avoid lifting weight that causes immediately pain or pain anywhere in the body afterwards. Smoking/Nicotine If there was ever one thing that you could do to increase your overall health, decrease your risk of cardiovascular problems by about 39% the second you make the choice, it is to STOP SMOKING. Your body's most instant gratification is the second you stop smoking. We have all heard the studies, read the articles but it is true, smoking is extremely bad for your overall health, and moreover it is detrimental to your bone health. Nicotine, IN ANY FORM, kills bone cells, prevents your body from healing fractures, and significantly prolongs healing after surgery. In spine surgery specifically, it increases your risk of not healing your bones to create a fusion and increases your risk of having a revision surgery due to this up to 60%. I know it is hard. I know it feels impossible. But there are ways. Take control of your life. We are here to help you through it. And when you are ready, ask us and we can direct you to help if you desire. Use the START Plan to Quit Smoking (please visit the Helpguide.org website listed below for more information): S = Set a quit date. Choose a date within the next 2 weeks, so you have enough time to prepare without losing your motivation to quit. If you mainly smoke at work, quit on the weekend, so you have a few days to adjust to the change. T = Tell family, friends, and co-workers that you plan to quit. Let your friends and family in on your plan to quit smoking and tell them you need their support and encouragement to stop. Look for a quit jennifer who wants to stop smoking as well. You can help each other get through the rough times. A = Anticipate and plan for the challenges you'll face while quitting. Most people who begin smoking again do so within the first 3 months. You can help yourself make it through by preparing ahead for common challenges, such as nicotine withdrawal and cigarette cravings. R = Remove cigarettes and other tobacco products from your home, car, and work. Throw away all your cigarettes (no emergency pack!), lighters, ashtrays, and matches. Wash your clothes and freshen up anything that smells like smoke. Shampoo your car, clean your drapes and carpet, and steam your furniture. T = Talk to your doctor about getting help to quit. Your doctor can prescribe medication to help with withdrawal and suggest other alternatives. If you can't see a doctor, you can get many products over the counter at your local pharmacy or grocery store, including the nicotine patch, nicotine lozenges, and nicotine gum. Resources for Quitting Smoking: <http s://www.[place].gov/documents/[facility]/Quit_Tobacco_Resources_for_patients_313480_7 .pdf> Supplementation: Take recommended dosages of Vitamin D and Calcium to help fortify your bones and help them to heal. See your health maintenance packet for dosages and recommended levels. DVT/VTE prophylaxis: You will be given compression stockings from the hospital. Wear these daily for the first two weeks after surgery. You may take them off at night. You may be prescribed a medication to help thin your blood. Take this as directed. If you are not prescribed this medication, early and frequent ambulation has been shown to be the best prophylaxis to deep vein thrombosis and sequelae related to this event. Discharge Disposition: HOME SELF-CARE
== END 2023-10-25 10:13 | disposition home or self-care (01) ==
LOC: OR 11:15 → 4SSUR 16:07 → OR 10-25 10:13
PROVIDERS: ATTEND Orthopaedic Surgery
DX: M48.02 Spinal stenosis, cervical region (principal); M47.22 Other spondylosis with radiculopathy, cervical region; M50.122 Cervical disc disorder at C5-C6 level with radiculopathy; M06.9 Rheumatoid arthritis, unspecified; M79.7 Fibromyalgia; K58.9 Irritable bowel syndrome, unspecified; K31.84 Gastroparesis; K21.9 Gastro-esophageal reflux disease without esophagitis; J44.89 Other specified chronic obstructive pulmonary disease; I12.9 Hypertensive chronic kidney disease with stage 1 through stage 4 chronic kidney disease, or unspecified chronic kidney disease; F41.9 Anxiety disorder, unspecified; E78.5 Hyperlipidemia, unspecified; E83.42 Hypomagnesemia; E11.65 Type 2 diabetes mellitus with hyperglycemia; F31.9 Bipolar disorder, unspecified; E11.43 Type 2 diabetes mellitus with diabetic autonomic (poly)neuropathy; E11.22 Type 2 diabetes mellitus with diabetic chronic kidney disease; G47.33 Obstructive sleep apnea (adult) (pediatric); Z79.1 Long term (current) use of non-steroidal anti-inflammatories (NSAID); Z79.4 Long term (current) use of insulin; Z79.899 Other long term (current) drug therapy; Z85.41 Personal history of malignant neoplasm of cervix uteri; Z87.891 Personal history of nicotine dependence; Z98.51 Tubal ligation status
CPT/HCPCS: 94640 ×2; 94760; 97161; 80048; 83735; 85025 ×2; 83036; 72040; 20930; 20936; 22551; 22552; 22853; J2250; J0360; J0690 ×2; J2405 ×2; J1170 ×3; J1790; 81025

== ENCOUNTER 2024-10-29 19:28 | Inpatient (IN) | payer OTHER ==
--- NOTE | 2024-10-29 19:49 | ED ---
General Adult HPI - General Chief complaint: Back Pain/Injury Stated complaint: Chest pain Time Seen by Provider: 10/29/24 19:37 Source: patient Mode of arrival: EMS Limitations: no limitations - History of Present Illness Initial comments: Patient present to the ED complaining of having acute on chronic right lumbar back pain for the past 4 to 5 days or so. Patient states that she has chronic lumbar back pain, but her pain has become worse over the past 4 to 5 days or so. Patient states that her pain radiates down her right leg. Patient states that her pain is worse with changes in position and better with rest. Patient states that she has been taking her Percocet at home without much relief. Patient also states that she has developed chest pain today, which she describes as "a bunch of bee stings". Patient denies trauma or injury, fever or chills, headache, focal numbness/weakness/neuro deficit, neck/arm/jaw pain, pleuritic pain, dysp nghia, palpitations, dizziness, nausea/vomiting/diaphoresis, abdominal pain, diarrhea, bloody or melanotic stool, dysuria/hematuria/urinary frequency/urinary symptoms, decreased urine output, incontinence or urinary retention, leg or calf swelling, or any other symptoms or complaints. - Related Data Home Medications Medication Instructions Recorded Confirmed lisinopriL [Prinivil] 5 mg PO HS 02/13/16 10/20/23 Dicyclomine [Bentyl] 20 mg PO QID 11/30/20 10/20/23 INSULIN LISPRO (humaLOG) [humaLOG] See Protocol SQ AC-TID PRN 11/30/20 10/20/23 Insulin Glargine,Hum.rec.anlog 60 unit SQ 0800 11/30/20 10/20/23 [Lantus Solostar] Omeprazole [PriLOSEC] 20 mg PO BID 11/30/20 10/20/23 Ibuprofen [Motrin] 800 mg PO TID 03/15/21 10/20/23 Albuterol Nebulized [Ventolin 2.5 mg INHALATION RT-QID PRN 12/11/21 10/20/23 Nebulized] Linaclotide [Linzess] 145 mcg PO DAILY PRN 12/11/21 10/20/23 ALPRAZolam [Xanax] 1 mg PO TID PRN 09/23/22 10/20/23 Albuterol Inhaler [Ventolin Hfa 1 - 2 puff INHALATION RT-QID PRN 09/23/22 10/20/23 Inhaler] Cyclobenzaprine [Flexeril] 10 mg PO BID PRN 10/10/22 10/20/23 Ergocalciferol (Vitamin D2) 1,250 mcg PO QMONTHLY 10/10/22 10/20/23 [Drisdol (50,000 Iu)] Ondansetron [Zofran] 4 mg PO DAILY PRN 10/10/22 10/20/23 Fluticasone/Umeclidin/Vilanter 1 inh INHALATION 1400 10/20/23 10/20/23 [Trelegy Ellipta 200-62.5-25] Previous Rx's Medication Instructions Recorded Pregabalin [Lyrica] 150 mg PO BID #30 cap 10/25/23 Sennosides/Docusate Sodium 2 each PO DAILY PRN #30 tablet 10/25/23 [Senna-S 8.6-50 mg Tablet] cefaDROXiL [Duricef] 500 mg PO Q12HR 5 Days #10 cap 10/25/23 oxyCODONE HCL/ACETAMINOPHEN 1 tab PO Q6HR PRN 7 Days #28 tab 10/25/23 [Percocet 10-325 mg] Allergies Allergy/AdvReac Type Severity Reaction Status Date / Time trimethobenzamide HCl Allergy Dyspnea, Verified 10/29/24 19:41 [From Tigan] tongue swelled, hives Review of Systems ROS Statement: Those systems with pertinent positive or pertinent negative responses have been documented in the HPI. ROS Other: All systems not noted in ROS Statement are negative. Past Medical History Past Medical History: Asthma, Cancer, COPD, Diabetes Mellitus, Fibromyalgia, GERD/Reflux, Hyperlipidemia, Hypertension, Musculoskeletal Disorder, Osteoarthritis (OA), Pneumonia, Rheumatoid Arthritis (RA), Sleep Apnea/CPAP/BIPAP Additional Past Medical History / Comment(s): Endometriosis. Varicose veins. Memory loss from Fibromyalgia. Migraines, has had "black outs". Episodes of vomiting related to anxiety, Gastroparesis, IBS, Hx Cervical cancer 10 yrs ago. "Kidney/liver issues (elevated liver enzymes) due to Diabetes". DDD,stage 1 kidney disease, hx. slow heart rate @times, doesn't use anything for sleep apnea,resolving resp. infection, recent dx. torticollis History of Any Multi-Drug Resistant Organisms: None Reported Past Surgical History: Back Surgery, Bladder Surgery, Section, Cholecystectomy, Tubal Ligation, Uterine Ablation Additional Past Surgical History / Comment(s): Section X3, cervix removed, D&C. Past Anesthesia/Blood Transfusion Reactions: Motion Sickness, Postoperative Na usea & Vomiting (PONV) Additional Past Anesthesia/Blood Transfusion Reaction / Comment(s): Grandmother hard to wake up, usually needs motion sickness patch Past Psychological History: Anxiety, Bipolar, Depression Smoking Status: Former smoker Past Alcohol Use History: None Reported Past Drug Use History: Marijuana - Past Family History Father Family Medical History: Cancer General Exam Limitations: no limitations General appearance: alert Eye exam: Present: normal appearance ENT exam: Present: mucous membranes moist Respiratory exam: Present: normal lung sounds bilaterally. Absent: respiratory distress, wheezes, rales, rhonchi, stridor, chest wall tenderness Cardiovascular Exam: Present: regular rate, normal rhythm, normal heart sounds, other (Normal radial pulses bilaterally) GI/Abdominal exam: Present: soft. Absent: distended, tenderness, guarding Extremities exam: Present: full ROM, other (Negative Homans' sign bilaterally; no evidence of lower extremity neurological deficit or saddle anesthesia on exam). Absent: tenderness, pedal edema, calf tenderness Back exam: Present: normal inspection. Absent: tenderness, CVA tenderness (R), CVA tenderness (L) Neurological exam: Present: alert, oriented X3, CN II-XII intact. Absent: motor sensory deficit Psychiatric exam: Present: anxious, other (Tearful) Skin exam: Present: warm, dry, normal color Course Vital Signs 10/29/24 19:32 Temperature 99.0 F Pulse Rate 88 Respiratory 22 Rate Blood Pressure 146/84 O2 Sat by Pulse 97 Oximetry - Reevaluation(s) Reevaluation #1: 10/29/24 21:36 Patient states that she is now nauseated, and patient has had a bout of emesis while in the ED. Patient states that her nausea began after she was given pain medication in the ED, and she states that her pain has not improved yet. Patient states that she does not feel that she can care for herself at home with her pain, and she is requesting hospital admission. Patient is aware of her test results. 10/29/24 22:09 Case, H&P, test results and ED management thus far were discussed with Dr. Harris. He accepts hospital admission. He recommends giving the patient a dose of IV Decadron in the ED, and he also requests placing a consultation order for orthopedic spine. He has no further recommendations at this time. EKG Findings - EKG Comments: EKG Findings:: ED physician interpretation (interpreted by me): Normal sinus rhythm, no ectopy, normal WA and QRS intervals, normal QT interval, normal axis, no nonspecific ST abnormality, no ST elevation Medical Decision Making - Medical Decision Making Was pt. sent in by a medical professional or institution (, PA, RELIEF MAP MODELER, urgent care, hospital, or custodial...) When possible be specific @ -No Did you speak to anyone other than the patient for history (EMS, parent, family, police, friend...)? What history was obtained from this source @ -No Did you review nursing and triage notes (agree or disagree)? Why? @ -I reviewed and agree with nursing and triage notes Were old charts reviewed (outside hosp., previous admission, EMS record, old EKG, old radiological studies, urgent care reports/EKG's, custodial records)? Report findings @ -No old charts were reviewed Differential Diagnosis (chest pain, altered mental status, abdominal pain women, abdominal pain men, vaginal bleeding, weakness, fever, dyspnea, syncope, headache, dizziness, GI bleed, back pain, seizure, CVA, palpatations, mental health, musculoskeletal)? @ -Back pain, DJD, DDD, herniated disc disease, radiculopathy, muscle strain, muscle spasm, chronic back pain, chest pain, anxiety, ACS/OR, chest wall pain, GERD, pleurisy, pneumothorax, this is not meant to be a complete list. EKG interpreted by me (3pts min.). @ -As above X-rays interpreted by me (1pt min.). @ -Chest x-ray was reviewed myself and shows no acute cardiopulmonary disease. I agree with the radiologist's interpretation as above. CT interpreted by me (1pt min.). @ -None done U/S interpreted by me (1pt. min.). @ -None done What testing was considered but not performed or refused? (CT, X-rays, U/S, labs)? Why? @ -None What meds were considered but not given or refused? Why? @ -None Did you discuss the management of the patient with other professionals (professionals i.e. , PA, RELIEF MAP MODELER, lab, RT, psych nurse, executive secretary social welfare, glass finisher, teacher, surveillance dual rate officer, outpatient case manager)? Give summary @ -As above. Was smoking cessation discussed for >3mins.? @ -No Was critical care preformed (if so, how long)? @ -No Were there social determinants of health that impacted care today? How? (Homelessness, low income, unemployed, alcoholism, drug addiction, transportation, low edu. Level, literacy, decrease access to med. care, care home, rehab)? @ -No Was there de-escalation of care discussed even if they declined (Discuss DNR or withdrawal of care, Hospice)? DNR status @ -No What co-morbidities impacted this encounter? (DM, HTN, Smoking, COPD, CAD, Cancer, CVA, ARF, Chemo, Hep., AIDS, mental health diagnosis, sleep apnea, morbid obesity)? @ -None Was patient admitted / discharged? Hospital course, mention meds given and route, prescriptions, significant lab abnormalities, going to OR and other pertinent info. @ -Patient's EKG, chest x-ray and labs are all fairly unremarkable, including a negative troponin. Patient reports having acute on chronic lumbar back pain, which has been worse over the past 4 to 5 days or so. Patient has no lower extremity neurological deficit on exam, and she denies having any urinary retention or incontinence. Patient also denies any back trauma. I do not suspect an emergent medical condition at this time. Will admit the patient to the hospital for pain management. Dr. Harris has accepted hospital admission. Patient agrees with this plan. Undiagnosed new problem with uncertain prognosis? @ -No Drug Therapy requiring intensive monitoring for toxicity (Heparin, Nitro, Insulin, Cardizem)? @ -No Were any procedures done? @ -No Diagnosis/symptom? @ -Lumbar back pain Acute, or Chronic, or Acute on Chronic? @ -Acute on chronic Uncomplicated (without systemic symptoms) or Complicated (systemic symptoms)? @ -Default Side effects of treatment? @ -No Exacerbation, Progression, or Severe Exacerbation? @ -No Poses a threat to life or bodily function? How? (Chest pain, USA, OR, pneumonia, PE, COPD, DKA, ARF, appy, cholecystitis, CVA, Diverticulitis, Homicidal, Suicidal, threat to staff... and all critical care pts) @ -No Diagnosis/symptom? @ -Chest pain Acute, or Chronic, or Acute on Chronic? @ -Acute Uncomplicated (without systemic symptoms) or Complicated (systemic symptoms)? @ -Default Side effects of treatment? @ -None Exacerbation, Progression, or Severe Exacerbation] @ -No Poses a threat to life or bodily function? @ -No - Lab Data Result diagrams: 10/29/24 20:24 10/29/24 20:24 Lab Results 10/29/24 10/29/24 10/29/24 Range/Units 20:24 20:24 20:24 WBC 15.6 H (3.8-10.6) k/uL RBC 4.68 (3.80-5.40) m/uL Hgb 14.0 (11.4-16.0) gm/dL Hct 43.7 (34.0-46.0) % MCV 93.2 (80.0-100.0) fL MCH 30.0 (25.0-35.0) pg MCHC 32.1 (31.0-37.0) g/dL RDW 13.2 (11.5-15.5) % Plt Count 333 (150-450) k/uL MPV 7.2 Neutrophils % 60 % Lymphocytes % 31 % Monocytes % 6 % Eosinophils % 1 % Basophils % 1 % Neutrophils # 9.4 H (1.3-7.7) k/uL Lymphocytes # 4.8 (1.0-4.8) k/uL Monocytes # 0.9 (0-1.0) k/uL Eosinophils # 0.2 (0-0.7) k/uL Basophils # 0.1 (0-0.2) k/uL PT 9.7 L (10.0-12.5) sec INR 0.8 (<1.2) APTT 19.9 L (22.0-30.0) sec Sodium 133 L (137-145) mmol/L Potassium 4.3 (3.5-5.1) mmol/L Chloride 96 L (98-107) mmol/L Carbon Dioxide 26 (22-30) mmol/L Anion Gap 11 mmol/L BUN 12 (7-17) mg/dL Creatinine 0.53 (0.52-1.04) mg/dL Est GFR (CKD-EPI)AfAm >90 (>60 ml/min/1.73 sqM) Est GFR (CKD-EPI)NonAf >90 (>60 ml/min/1.73 sqM) Glucose 268 H (74-99) mg/dL Calcium 9.4 (8.4-10.2) mg/dL Magnesium 2.0 (1.6-2.3) mg/dL Total Bilirubin 0.3 (0.2-1.3) mg/dL AST 28 (14-36) U/L ALT 33 (4-34) U/L Alkaline Phosphatase 76 (38-126) U/L Troponin I (0.000-0.034) ng/mL Total Protein 6.9 (6.3-8.2) g/dL Albumin 4.0 (3.5-5.0) g/dL 10/29/24 Range/Units 20:24 WBC (3.8-10.6) k/uL RBC (3.80-5.40) m/uL Hgb (11.4-16.0) gm/dL Hct (34.0-46.0) % MCV (80.0-100.0) fL MCH (25.0-35.0) pg MCHC (31.0-37.0) g/dL RDW (11.5-15.5) % Plt Count (150-450) k/uL MPV Neutrophils % % Lymphocytes % % Monocytes % % Eosinophils % % Basophils % % Neutrophils # (1.3-7.7) k/uL Lymphocytes # (1.0-4.8) k/uL Monocytes # (0-1.0) k/uL Eosinophils # (0-0.7) k/uL Basophils # (0-0.2) k/uL PT (10.0-12.5) sec INR (<1.2) APTT (22.0-30.0) sec Sodium (137-145) mmol/L Potassium (3.5-5.1) mmol/L Chloride (98-107) mmol/L Carbon Dioxide (22-30) mmol/L Anion Gap mmol/L BUN (7-17) mg/dL Creatinine (0.52-1.04) mg/dL Est GFR (CKD-EPI)AfAm (>60 ml/min/1.73 sqM) Est GFR (CKD-EPI)NonAf (>60 ml/min/1.73 sqM) Glucose (74-99) mg/dL Calcium (8.4-10.2) mg/dL Magnesium (1.6-2.3) mg/dL Total Bilirubin (0.2-1.3) mg/dL AST (14-36) U/L ALT (4-34) U/L Alkaline Phosphatase (38-126) U/L Troponin I <0.012 (0.000-0.034) ng/mL Total Protein (6.3-8.2) g/dL Albumin (3.5-5.0) g/dL - Radiology Data Chest x-ray: No acute cardiopulmonary disease/process. Disposition Clinical Impression: Lumbar back pain, Chest pain Disposition: ADMITTED IP TO THIS [facility] Condition: Stable Is patient prescribed a controlled substance at d/c from ED?: No Referrals: None,Stated [Primary Care Provider] - 1-2 days Time of Disposition: 22:11
[2024-10-29 20:41] LABS: Basophils # (A) 0.1 k/uL (0-0.2); Basophils % (A) 1 %; Eosinophils # (A) 0.2 k/uL (0-0.7); Eosinophils % (A) 1 %; HCT 43.7 % (34.0-46.0); Lymphocytes # (A) 4.8 k/uL (1.0-4.8); Lymphocytes % (A) 31 %; MCHC 32.1 g/dL (31.0-37.0); MCV 93.2 fL (80.0-100.0); Mean Platelet Volume 7.2; Monocytes # (A) 0.9 k/uL (0-1.0); Monocytes % (A) 6 %; Neutrophils # (A) 9.4 k/uL (1.3-7.7); Neutrophils % (A) 60 %; Platelet Count 333 k/uL (150-450); RBC 4.68 m/uL (3.80-5.40); RDW 13.2 % (11.5-15.5); WBC 15.6 k/uL (3.8-10.6)
[2024-10-29 20:49] LABS: ALT 33 U/L (4-34); AST 28 U/L (14-36); African American GFR (CKD) >90 (>60 ml/min/1.73 sqM); Alkaline Phosphatase 76 U/L (38-126); Anion Gap 11 mmol/L; Blood Urea Nitrogen 12 mg/dL (7-17); Calcium 9.4 mg/dL (8.4-10.2); Carbon Dioxide 26 mmol/L (22-30); Chloride 96 mmol/L (98-107); Glucose 268 mg/dL (74-99); Non-African American GFR(CKD) >90 (>60 ml/min/1.73 sqM); Potassium 4.3 mmol/L (3.5-5.1); Sodium 133 mmol/L (137-145); Total Bilirubin 0.3 mg/dL (0.2-1.3); Total Protein 6.9 g/dL (6.3-8.2)
[2024-10-29 21:04] LABS: INR 0.8 (<1.2); Prothrombin Time 9.7 sec (10.0-12.5)
[2024-10-29] MEDS: LORazepam 2 MG/ML INJ IV STA (21:23)
[2024-10-29] MEDS: HYDROmorphone 1 MG/ML 1 ML SYRINGE IVP STA (21:26)
--- NOTE | 2024-10-29 21:36 | XR ---
EXAMINATION TYPE: XR chest 2V DATE OF EXAM: 10/29/2024 9:32 PM COMPARISON: Chest radiographs from 10/04/2022 TECHNIQUE: XR chest 2V Frontal and lateral views of the chest. CLINICAL INDICATION:Female, 43 years old with history of Chest Pain; FINDINGS: Lungs/Pleura: There is no evidence of pleural effusion, focal consolidation, or pneumothorax. Pulmonary vascularity: Unremarkable. Heart/mediastinum: Cardiomediastinal silhouette is unremarkable. Musculoskeletal: No acute osseous pathology. Cervical and lumbar fusion hardware. IMPRESSION: No acute cardiopulmonary disease/process. [facility], , 10/29/2024 9:34 PM
[2024-10-29 21:50] LABS: Partial Thromboplastin Time 19.9 sec (22.0-30.0)
[2024-10-29] MEDS ORDERED: NALOXONE 0.4 MG/ML 1 ML VIAL IV PRN (22:00)
[2024-10-29] MEDS: ONDANSETRON 4 MG/2 ML VIAL IVP STA (22:14)
[2024-10-29] MEDS: DEXAMETHASONE SOD PHOSPHATE 10 MG/ML 1 ML VIAL IVP STA (22:15)
--- NOTE | 2024-10-30 01:32 | P.HPIM ---
History of Present Illness H&P Date: 10/29/24 Chief Complaint: Back pain Patient present to the ED complaining of having acute on chronic right lumbar back pain for the past 4 to 5 days or so. Patient states that she has chronic lumbar back pain, but her pain has become worse over the past 4 to 5 days or so. Patient states that her pain radiates down her right leg. Patient states that her pain is worse with changes in position and better with rest. Patient states that she has been taking her Percocet at home without much relief. Patient also states that she has developed chest pain today, which she describes as "a bunch of bee stings". Patient denies trauma or injury, fever or chills, headache, focal numbness/weakness/neuro deficit, neck/arm/jaw pain, pleuritic pain, dyspnea, palpitations, dizziness, nausea/vomiting/diaphoresis, abdominal pain, diarrhea, bloody or melanotic stool, dysuria/hematuria/urinary frequency/urinary symptoms, decreased urine output, incontinence or urinary retention, leg or calf swelling, or any other symptoms or complaints. Blood work completed in ED reveals a WBC of 15.6, hemoglobin of 14 and platelet count of 333; sodium 133, potassium 4.1, BUNs/creatinine of 12/0.56 and blood glucose of 268, troponin is less than 0.012 Chest x-ray is negative for any acute cardiopulmonary process EKG reveals normal sinus rhythm without any acute ST or T wave depression Review of Systems REVIEW OF SYSTEMS: CONSTITUTIONAL: No fever, no malaise, no fatigue. HEENT: No recent visual problems or hearing problems. Denied any sore throat. CARDIOVASCULAR: No chest pain, orthopnea, PND, no palpitations, no syncope. PULMONARY: No shortness of breath, no cough, no hemoptysis. GASTROINTESTINAL: No diarrhea, no nausea, no vomiting, no abdominal pain. NEUROLOGICAL: No headaches, no weakness, no numbness. HEMATOLOGICAL: Denies any bleeding or petechiae. GENITOURINARY: Denies any burning micturition, frequency, or urgency. MUSCULOSKELETAL/RHEUMATOLOGICAL: Denies any joint pain, swelling, or any muscle pain. ENDOCRINE: Denies any polyuria or polydipsia. The rest of the 14-point review of systems is negative. Past Medical History Past Medical History: Asthma, Cancer, COPD, Diabetes Mellitus, Fibromyalgia, GERD/Reflux, Hyperlipidemia, Hypertension, Musculoskeletal Disorder, Osteoarthritis (OA), Pneumonia, Rheumatoid Arthritis (RA), Sleep Apnea/CPAP/BIPAP Additional Past Medical History / Comment(s): Endometriosis. Varicose veins. Memory loss from Fibromyalgia. Migraines, has had "black outs". Episodes of vomiting related to anxiety, Gastroparesis, IBS, Hx Cervical cancer 10 yrs ago. "Kidney/liver issues (elevated liver enzymes) due to Diabetes". DDD,stage 1 kidney disease, hx. slow heart rate @times, doesn't use anything for sleep apnea,resolving resp. infection, recent dx. torticollis History of Any Multi-Drug Resistant Organisms: None Reported Past Surgical History: Back Surgery, Bladder Surgery, Section, Cholecystectomy, Tubal Ligation, Uterine Ablation Additional Past Surgical History / Comment(s): Section X3, cervix removed, D&C. Past Anesthesia/Blood Transfusion Reactions: Motion Sickness, Postoperative Nausea & Vomiting (PONV) Additional Past Anesthesia/Blood Transfusion Reaction / Comment(s): Grandmother hard to wake up, usually needs motion sickness patch Past Psychological History: Anxiety, Bipolar, Depression Smoking Status: Former smoker Past Alcohol Use History: None Reported Past Drug Use History: Marijuana - Past Family History Father Family Medical History: Cancer Medications and Allergies Home Medications Medication Instructions Recorded Confirmed Type lisinopriL [Prinivil] 5 mg PO HS 02/13/16 10/20/23 History Dicyclomine [Bentyl] 20 mg PO QID 11/30/20 10/20/23 History INSULIN LISPRO (humaLOG) [humaLOG] See Protocol SQ AC-TID PRN 11/30/20 10/20/23 History Insulin Glargine,Hum.rec.anlog 60 unit SQ 0800 11/30/20 10/20/23 History [Lantus Solostar] Omeprazole [PriLOSEC] 20 mg PO BID 11/30/20 10/20/23 History Ibuprofen [Motrin] 800 mg PO TID 03/15/21 10/20/23 History Albuterol Nebulized [Ventolin 2.5 mg INHALATION RT-QID PRN 12/11/21 10/20/23 History Nebulized] Linaclotide [Linzess] 145 mcg PO DAILY PRN 12/11/21 10/20/23 History ALPRAZolam [Xanax] 1 mg PO TID PRN 09/23/22 10/20/23 History Albuterol Inhaler [Ventolin Hfa 1 - 2 puff INHALATION RT-QID PRN 09/23/22 10/20/23 History Inhaler] Cyclobenzaprine [Flexeril] 10 mg PO BID PRN 10/10/22 10/20/23 History Ergocalciferol (Vitamin D2) 1,250 mcg PO QMONTHLY 10/10/22 10/20/23 History [Drisdol (50,000 Iu)] Ondansetron [Zofran] 4 mg PO DAILY PRN 10/10/22 10/20/23 History Fluticasone/Umeclidin/Vilanter 1 inh INHALATION 1400 10/20/23 10/20/23 History [Trelegy Ellipta 200-62.5-25] Pregabalin [Lyrica] 150 mg PO BID #30 cap 10/25/23 Rx Sennosides/Docusate Sodium 2 each PO DAILY PRN #30 tablet 10/25/23 Rx [Senna-S 8.6-50 mg Tablet] cefaDROXiL [Duricef] 500 mg PO Q12HR 5 Days #10 cap 10/25/23 Rx oxyCODONE HCL/ACETAMINOPHEN 1 tab PO Q6HR PRN 7 Days #28 tab 10/25/23 Rx [Percocet 10-325 mg] Allergies Allergy/AdvReac Type Severity Reaction Status Date / Time trimethobenzamide HCl Allergy Dyspnea, Verified 10/29/24 19:41 [From Tigan] tongue swelled, hives Physical Exam Vitals: Vital Signs Temp Pulse Resp BP Pulse Ox 10/29/24 19:32 99.0 F 88 22 146/84 97 Intake and Output 10/29/24 10/29/24 10/30/24 14:59 22:59 06:59 Other: Weight 107.501 kg Eye exam: Present: normal appearance ENT exam: Present: mucous membranes moist Respiratory exam: Present: normal lung sounds bilaterally. Absent: respiratory distress, wheezes, rales, rhonchi, stridor, chest wall tenderness Cardiovascular Exam: Present: regular rate, normal rhythm, normal heart sounds, other (Normal radial pulses bilaterally) GI/Abdominal exam: Present: soft. Absent: distended, tenderness, guarding Extremities exam: Present: full ROM, other (Negative Homans' sign bilaterally; no evidence of lower extremity neurological deficit or saddle anesthesia on exam). Absent: tenderness, pedal edema, calf tenderness Back exam: Present: normal inspection. Absent: tenderness, CVA tenderness (R), CVA tenderness (L) Neurological exam: Present: alert, oriented X3, CN II-XII intact. Absent: motor sensory deficit Psychiatric exam: Present: anxious, other (Tearful) Skin exam: Present: warm, dry, normal color Results CBC & Chem 7: 10/29/24 20:24 10/29/24 20:24 Labs: Abnormal Lab Results - Last 24 Hours (Table) 10/29/24 10/29/24 10/29/24 Range/Units 20:24 20:24 20:24 WBC 15.6 H (3.8-10.6) k/uL Neutrophils # 9.4 H (1.3-7.7) k/uL PT 9.7 L (10.0-12.5) sec APTT 19.9 L (22.0-30.0) sec Sodium 133 L (137-145) mmol/L Chloride 96 L (98-107) mmol/L Glucose 268 H (74-99) mg/dL Assessment and Plan Assessment: 1. Acute exacerbation chronic back pain -Patient reports history of chronic lumbar pain worsening last few days -Patient received IV Decadron in ED; we will continue with IV Decadron 4 mg twice daily; Dilaudid 1 mg every 3 hours as needed; will add muscle relaxer; Lyrica 150 mg twice daily; meloxicam 15 mg daily -Orthopedic surgery is consulted 2. Hyperglycemia/diabetes mellitus with long-term insulin use -Patient takes Lantus 60 units subcu daily; monitor Accu-Cheks before every meal and at bedtime insulin sliding scale 3. Hypertension; lisinopril 5 mg daily 4. Asthma; not in exacerbation; continue with home inhaler therapy 5. Anxiety; Xanax 1 mg 3 times daily as needed 6. Gastroesophageal reflux disease; omeprazole 20 mg twice daily DVT prophylaxis; SCDs CODE STATUS; full code
[2024-10-30] MEDS: HYDROmorphone 1 MG/ML 1 ML SYRINGE IVP PRN (05:26)
[2024-10-30 07:18] LABS: Basophils % (A) 0 %; Eosinophils % (A) 0 %; HGB 14.4 gm/dL (11.4-16.0); Lymphocytes # (A) 1.2 k/uL (1.0-4.8); Lymphocytes % (A) 11 %; MCH 29.4 pg (25.0-35.0); MCHC 30.6 g/dL (31.0-37.0); MCV 96.1 fL (80.0-100.0); Mean Platelet Volume 7.7; Monocytes # (A) 0.2 k/uL (0-1.0); Monocytes % (A) 2 %; Neutrophils % (A) 86 %; Platelet Count 343 k/uL (150-450); RBC 4.89 m/uL (3.80-5.40); RDW 13.4 % (11.5-15.5); WBC 10.5 k/uL (3.8-10.6)
[2024-10-30 07:30] LABS: ALT 41 U/L (4-34); AST 33 U/L (14-36); African American GFR (CKD) >90 (>60 ml/min/1.73 sqM); Albumin 3.8 g/dL (3.5-5.0); Alkaline Phosphatase 87 U/L (38-126); Anion Gap 8 mmol/L; Blood Urea Nitrogen 11 mg/dL (7-17); Carbon Dioxide 26 mmol/L (22-30); Chloride 96 mmol/L (98-107); Glucose 343 mg/dL (74-99); Non-African American GFR(CKD) >90 (>60 ml/min/1.73 sqM); Potassium 4.7 mmol/L (3.5-5.1); Sodium 130 mmol/L (137-145); Total Bilirubin 0.5 mg/dL (0.2-1.3); Total Protein 6.8 g/dL (6.3-8.2)
[2024-10-30 09:42] LABS: Glucose,Whole Blood 282 mg/dL (70-110)
[2024-10-30 12:44] LABS: Glucose,Whole Blood 258 mg/dL (70-110)
[2024-10-30] MEDS: ONDANSETRON 4 MG/2 ML VIAL IVP PRN (12:56)
--- NOTE | 2024-10-30 13:04 | P.PN ---
Subjective Progress Note Date: 10/30/24 Patient present to the ED complaining of having acute on chronic right lumbar back pain for the past 4 to 5 days or so. Patient states that she has chronic lumbar back pain, but her pain has become worse over the past 4 to 5 days or so. Patient states that her pain radiates down her right leg. Patient states that her pain is worse with changes in position and better with rest. Patient states that she has been taking her Percocet at home without much relief. Patient also states that she has developed chest pain today, which she describes as "a bunch of bee stings". Patient denies trauma or injury, fever or chills, headache, focal numbness/weakness/neuro deficit, neck/arm/jaw pain, pleuritic pain, dyspnea, palpitations, dizziness, nausea/vomiting/diaphoresis, abdominal pain, diarrhea, bloody or melanotic stool, dysuria/hematuria/urinary frequency/urinary symptoms, decreased urine output, incontinence or urinary retention, leg or calf swelling, or any other symptoms or complaints. Blood work completed in ED reveals a WBC of 15.6, hemoglobin of 14 and platelet count of 333; sodium 133, potassium 4.1, BUNs/creatinine of 12/0.56 and blood glucose of 268, troponin is less than 0.012 Chest x-ray is negative for any acute cardiopulmonary process EKG reveals normal sinus rhythm without any acute ST or T wave depression Objective - Vital Signs Vital signs: Vital Signs Temp 99.0 F 10/29/24 19:32 Pulse 88 10/29/24 19:32 Resp 22 10/29/24 19:32 BP 146/84 10/29/24 19:32 Pulse Ox 97 10/29/24 19:32 FiO2 Intake & Output 10/29/24 10/29/24 10/30/24 06:59 18:59 06:59 Weight 107.501 kg - Exam Eye exam: Present: normal appearance ENT exam: Present: mucous membranes moist Respiratory exam: Present: normal lung sounds bilaterally. Absent: respiratory distress, wheezes, rales, rhonchi, stridor, chest wall tenderness Cardiovascular Exam: Present: regular rate, normal rhythm, normal heart sounds, other (Normal radial pulses bilaterally) GI/Abdominal exam: Present: soft. Absent: distended, tenderness, guarding Extremities exam: Present: full ROM, other (Negative Homans' sign bilaterally; no evidence of lower extremity neurological deficit or saddle anesthesia on exam). Absent: tenderness, pedal edema, calf tenderness Back exam: Present: normal inspection. Absent: tenderness, CVA tenderness (R), CVA tenderness (L) Neurological exam: Present: alert, oriented X3, CN II-XII intact. Absent: motor sensory deficit Psychiatric exam: Present: anxious, other (Tearful) Skin exam: Present: warm, dry, normal color - Labs CBC & Chem 7: 10/30/24 06:49 10/30/24 06:49 Labs: Abnormal Lab Results - Last 24 Hours (Table) 10/29/24 10/29/24 10/29/24 Range/Units 20:24 20:24 20:24 WBC 15.6 H (3.8-10.6) k/uL Neutrophils # 9.4 H (1.3-7.7) k/uL PT 9.7 L (10.0-12.5) sec APTT 19.9 L (22.0-30.0) sec Sodium 133 L (137-145) mmol/L Chloride 96 L (98-107) mmol/L Glucose 268 H (74-99) mg/dL Assessment and Plan Assessment: 1. Acute exacerbation chronic back pain -Patient reports history of chronic lumbar pain worsening last few days -Patient received IV Decadron in ED; we will continue with IV Decadron 4 mg twice daily; Dilaudid 1 mg every 3 hours as needed; will add muscle relaxer; Lyrica 150 mg twice daily; meloxicam 15 mg daily -Orthopedic surgery is consulted 2. Hyperglycemia/diabetes mellitus with long-term insulin use -Patient takes Lantus 60 units subcu daily; monitor Accu-Cheks before every meal and at bedtime insulin sliding scale 3. Hypertension; lisinopril 5 mg daily 4. Asthma; not in exacerbation; continue with home inhaler therapy 5. Anxiety; Xanax 1 mg 3 times daily as needed 6. Gastroesophageal reflux disease; omeprazole 20 mg twice daily DVT prophylaxis; SCDs CODE STATUS; full code
[2024-10-30] MEDS: MELOXICAM 7.5 MG TAB PO SCH (14:12)
[2024-10-30] MEDS ORDERED: NON FORMULARY DRUG (Albuterol Inhaler 90 MCG Puff) INHALATION PRN (14:23)
[2024-10-30] MEDS ORDERED: CYCLOBENZAPRINE 10 MG TAB PO PRN (14:23)
[2024-10-30] MEDS: PANTOPRAZOLE 40 MG TABLET PO SCH (16:56)
[2024-10-30] MEDS: DICYCLOMINE 20 MG TAB PO SCH (16:56)
[2024-10-30] MEDS: INSULIN GLARGINE (LANTUS) 100 UNIT/ML SYR SQ SCH (16:57)
[2024-10-30] MEDS: DEXAMETHASONE SOD PHOSPHATE 4 MG/ML 1 ML VIAL IVP SCH (16:58)
[2024-10-30 17:53] LABS: Glucose,Whole Blood 308 mg/dL (70-110)
[2024-10-30] MEDS: PREGABALIN 75 MG CAP PO SCH (18:00)
[2024-10-30] MEDS: INSULIN LISPRO (HumaLOG) 100 UNIT/ML 10 mL VL SQ SCH (18:00)
[2024-10-30 20:02] LABS: Glucose,Whole Blood 289 mg/dL (70-110)
[2024-10-30] MEDS: lisinopriL 5 MG TAB PO SCH (21:04)
[2024-10-31 05:33] LABS: Glucose,Whole Blood 222 mg/dL (70-110)
[2024-10-31] MEDS: FERROUS SULFATE 325 MG TAB PO SCH (05:50)
[2024-10-31] MEDS ORDERED: INSULIN GLARGINE (LANTUS) 100 UNIT/ML SYR SQ SCH (07:00)
[2024-10-31 11:59] LABS: Glucose,Whole Blood 247 mg/dL (70-110)
--- NOTE | 2024-10-31 13:40 | XR ---
EXAMINATION TYPE: XR knee limited RT DATE OF EXAM: 10/31/2024 CLINICAL INDICATION: Female, 43 years old with history of pain, pain TECHNIQUE: Frontal and lateral views of the knee were obtained. COMPARISON: None. FINDINGS: There is no acute fracture/dislocation evident in the right knee. Mpwh-kt-[id number] tricomp artment joint space loss without significant spurring. The overlying soft tissue appears unremarkabl e. IMPRESSION: As above. [facility], , 10/31/2024 1:38 PM
[2024-10-31] MEDS ORDERED: diazePAM 5 MG TAB PO PRN (14:41)
[2024-10-31] MEDS ORDERED: NON FORMULARY DRUG (Linaclotide [Linzess] 145 MCG Capsule) PO PRN (14:41)
[2024-10-31] MEDS: INSULIN GLARGINE (LANTUS) 100 UNIT/ML SYR SQ STA (15:40)
[2024-10-31] MEDS: HEPARIN SODIUM,PORCINE 5,000 UNIT/ML 1 ML VIAL SQ SCH (15:54)
[2024-10-31 15:58] LABS: C Reactive Protein 2.3 mg/dL (<1.0); Uric Acid 4.1 mg/dL (3.7-7.4)
[2024-10-31 17:23] LABS: Glucose,Whole Blood 194 mg/dL (70-110)
[2024-10-31 18:47] LABS: Glucose,Whole Blood 231 mg/dL (70-110)
[2024-10-31] MEDS: ALBUTEROL NEBULIZED 2.5 MG/3 ML INHALATION PRN (21:37)
--- NOTE | 2024-11-01 01:07 | PN ---
PROGRESS NOTE DATE OF SERVICE: 10/31/2024 SUBJECTIVE: This is a 43-year-old woman, who was admitted with intractable back pain secondary to possible DJD, also complaining of right knee pain. The patient is started on empiric steroids. Blood sugar is also elevated. PAST MEDICAL HISTORY: Reviewed. REVIEW OF SYSTEMS: A 14-point review of systems negative except as mentioned earlier. CURRENT MEDICATIONS: Reviewed. PHYSICAL EXAMINATION: VITAL SIGNS: Pulse is 60, blood pressure 140/76, respirations 15. CHEST: A few scattered rhonchi and crackles. ABDOMEN: Soft. BACK: Some tenderness. MUSCULOSKELETAL: Right knee joints are painful. SKIN: No ulcer, rash, bleeding. NERVOUS SYSTEM: Nonfocal. LABORATORY DATA: Reviewed. Accu-Cheks reviewed. Chest x-ray, no acute process. X-ray of the knee which I ordered yesterday showed DJD. No fracture. ASSESSMENT: 1. Severe back pain with possible degenerative joint disease. 2. Diabetes mellitus, type 2. 3. Right knee pain with possible degenerative joint disease. 4. Hypertension. 5. History of asthma. 6. History of anxiety. 7. History of gastroesophageal reflux disease. RECOMMENDATIONS: Recommended to continue current medications. Continue with pain management. Monitor blood sugars closely. Resume the home medications. Orthopedic evaluation. The patient had a lumbar MRI in 2022, which showed focal protrusion of the T11-12 area. Guarded prognosis. Further recommendations to follow. See orders for details. MMODL / IJN: [id number] /
[2024-11-01] MEDS: ONDANSETRON ODT 4 MG TAB PO PRN (01:53)
[2024-11-01 05:16] LABS: Glucose,Whole Blood 319 mg/dL (70-110)
[2024-11-01] MEDS: INSULIN GLARGINE (LANTUS) 100 UNIT/ML SYR SQ SCH ×2 (06:02→17:57)
[2024-11-01] MEDS ORDERED: INSULIN GLARGINE (LANTUS) 100 UNIT/ML SYR SQ SCH (08:00)
[2024-11-01 08:25] LABS: Basophils # (A) 0.06 X 10*3/uL (0.00-0.10); Basophils % (A) 0.5 %; Eosinophils # (A) 0.01 X 10*3/uL (0.04-0.35); Eosinophils % (A) 0.1 %; HCT 46.3 % (37.2-46.3); HGB 14.8 g/dL (12.0-15.0); Lymphocytes # (A) 1.67 X 10*3/uL (0.90-5.00); Lymphocytes % (A) 12.8 %; MCH 30.6 pg (27.0-32.0); MCV 95.7 FL (80.0-97.0); Mean Platelet Volume 10.4 FL (9.5-12.2); Monocytes # (A) 0.46 X 10*3/uL (0.20-1.00); Monocytes % (A) 3.5 %; NRBC Per 100 WBC 0 X 10*3/uL (0.00-0.01); Neutrophils # (A) 10.76 X 10*3/uL (1.80-7.70); Neutrophils % (A) 82.4 %; Platelet Count 370 X 10*3/uL (140-440); RBC 4.84 X 10*6/uL (4.10-5.20); RDW 13.1 % (11.5-14.5); WBC 13.05 X 10*3/uL (4.50-10.00)
[2024-11-01 08:39] LABS: ALT 60 U/L (8-44); AST 48 U/L (13-35); Albumin 4.2 g/dL (3.8-4.9); Albumin/Globulin Ratio 1.35 Ratio (1.60-3.17); Alkaline Phosphatase 88 U/L (41-126); BUN/Creat Ratio 15.57 Ratio (12.00-20.00); Blood Urea Nitrogen 10.9 mg/dL (9.0-27.0); Calcium 9.5 mg/dL (8.7-10.3); Carbon Dioxide 24.1 mmol/L (21.6-31.8); Chloride 96 mmol/L (96-109); Globulin 3.1 g/dL (1.6-3.3); Glucose 321 mg/dL (70-110); Potassium 4.4 mmol/L (3.5-5.5); Sodium 133 mmol/L (135-145); Total Bilirubin 0.3 mg/dL (0.3-1.2); Total Protein 7.3 g/dL (6.2-8.2)
[2024-11-01] MEDS: SYMBICORT 160-4.5 MCG INHALER INHALATION SCH (09:37)
[2024-11-01] MEDS: TIOTROPIUM 2.5 MCG INHALER INHALATION SCH (09:38)
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
--- NOTE | 2024-11-01 12:33 | CT ---
EXAMINATION TYPE: CT lumbar spine wo con DATE OF EXAM: 11/01/2024 12:09 PM COMPARISON: 10/03/2022.. CLINICAL INDICATION: Female, 43 years old with history of ACUTE RADICULOPATHY; PHH, Acute radiculopat hy lumbar pain TECHNIQUE: Multiple axial images were obtained from the midportion of T11 through the sacroiliac puma nts. Soft tissue and bone windows in coronal and sagittal planes were obtained and reviewed. 3-D ref ormats of the bones were created on a separate workstation and submitted for review. Contrast used: mL of , (None, if empty). Oral contrast used: (None, if empty). CT DLP: 888 mGycm, Automated exposure control for dose reduction was used. FINDINGS: Alignment: There are 5 lumbar type vertebral bodies within normal alignment. Bone: Fixation hardware at L3 L4 L5 and S1. Discectomy at L3-L4 L4-L5 and L5-S1. Hardware appears int act. No evidence for fracture. Scattered osteophyte reformation displacement. Degeneration worse at L 2-L3 with thickness phenomenon and endplate sclerosis. Scattered posterior disc is quite complexes wi th at least mild spinal canal stenosis throughout the spine. Discs: T12-L1: No spinal canal or neural foraminal stenosis is identified. L1-L2: No spinal canal or neural foraminal stenosis is identified. L2-L3: Disc bulge with mild spinal canal stenosis. No spinal canal or neural foraminal stenosis is id entified. L3-L4: Streak artifact limits evaluation. No spinal canal or neural foraminal stenosis is identified. L4-L5: Streak artifact limits evaluation. No spinal canal or neural foraminal stenosis is identified. L5-S1: Streak artifact limits evaluation. No spinal canal or neural foraminal stenosis is identified. Other: None IMPRESSION: Post surgical changes of the spine. Hardware appears intact. Streak artifact limits evaluation. No ev idence for high-grade stenosis of the neural foramina or spinal canal. [facility], , 11/01/2024 12:30 PM
[2024-11-01 12:36] LABS: Glucose,Whole Blood 332 mg/dL (70-110)
[2024-11-01] MEDS: CHOLECALCIFEROL 125 MCG (5000 IU) TABLET PO SCH (12:36)
[2024-11-01] MEDS: diazePAM 5 MG TAB PO SCH (12:36)
[2024-11-01] MEDS: ASCORBIC ACID 500 MG TAB PO SCH (13:07)
[2024-11-01] MEDS: KETOROLAC 15 MG/ML 1 ML VIAL IVP SCH (13:08)
[2024-11-01] MEDS: ACETAMINOPHEN IV (For NPO) 1,000 MG in EMPTY BAG 1 BAG IVPB SCH (13:09)
[2024-11-01] MEDS: amLODIPine 5 MG TAB PO SCH (14:59)
[2024-11-01 17:30] LABS: Glucose,Whole Blood 388 mg/dL (70-110)
[2024-11-01 18:52] LABS: Glucose,Whole Blood 413 mg/dL (70-110)
--- NOTE | 2024-11-01 21:34 | PN ---
PROGRESS NOTE DATE OF SERVICE: 11/01/2024 SUBJECTIVE: This is a 43-year-old woman, who was admitted with severe back pain and is not a surgical candidate per Ortho. No chest pain. No palpitation. The patient is on steroids. PHYSICAL EXAMINATION: VITAL SIGNS: Pulse is 88, blood pressure 173/80, respirations 18. CHEST: A few scattered rhonchi. ABDOMEN: Soft. LABORATORY DATA: Glucose noted. ASSESSMENT: 1. Severe back pain with possible degenerative joint disease. 2. Diabetes mellitus type 2. 3. Hypertension. 4. Right knee pain with possible degenerative joint disease. 5. History of asthma. 6. Anxiety and multiple complex medical issues. RECOMMENDATIONS: Recommended to continue current medications. Continue steroids. I would increase the dose of insulin. Prognosis is guarded. Further recommendations to follow. MMODL / IJN: [id number] /
[2024-11-02 05:23] LABS: Glucose,Whole Blood 338 mg/dL (70-110)
[2024-11-02 12:37] LABS: Glucose,Whole Blood 325 mg/dL (70-110)
[2024-11-02] MEDS ORDERED: IPRATROPIUM-ALBUTEROL 3 ML NEB INHALATION PRN (13:52)
--- NOTE | 2024-11-02 14:16 | XR ---
EXAMINATION TYPE: XR chest 1V portable DATE OF EXAM: 11/02/2024 2:11 PM COMPARISON: 10/29/2024 CLINICAL INDICATION: Female, 43 years old with history of shortness of breath, , FINDINGS: The cardiomediastinal silhouette, aorta, and pulmonary vasculature are within normal limits. Peribro nchial cuffing is noted. Hazy lung densities especially at the periphery and lower lungs probably rel ates to large body habitus. ACDF hardware noted. IMPRESSION: Portable exam further limited by large body habitus. Peribronchial cuffing suggests bronchitis or ast hma. Otherwise, no definite acute process. [facility], , 11/02/2024 2:14 PM
[2024-11-02] MEDS: methylPREDNISolone SOD SUCCI 125 MG/2 ML VIAL IV SCH (15:34)
[2024-11-02] MEDS: IPRATROPIUM-ALBUTEROL 3 ML NEB INHALATION SCH (16:32)
--- NOTE | 2024-11-02 16:45 | MR ---
EXAMINATION TYPE: MR lumbar spine wo/w con DATE OF EXAM: 11/02/2024 3:07 PM COMPARISON: 07/04/2023 CLINICAL INDICATION: Female, 43 years old with history of ACUTE RADICULOPATHY, acute radiculopathy IV Contrast: 10.5 cc Gadobutrol (None if empty) TECHNIQUE: Multiplanar, multisequence images of the lumbar spine were acquired without and with 10.5 mL intraven ous Gadobutrol gadolinium contrast. Findings: There are postsurgical changes of posterior metallic fusion from L3 through S1. Metallic artifact sev erely limits evaluation of the spinal canal and intervertebral discs from L3 through S1. Despite the limitations of a new moderate to large right lateral disc herniation at the L2-L3 level i s suspected resulting in marked compromise of the right lateral recess and moderate compromise of the right L2-3 neural foramina. There is a stable posterior disc bulge at the T11/T12 level resulting in mild mass effect on the vent rolateral thecal sac. Visualized conus medullaris cauda equina appear normal. There is a mild central protrusion of the T12/L1 disc resulting in mild mass effect on the ventral as pect thecal sac. There is no disc herniation at the L1/L2 level. There is no evidence of recurrent spinal stenosis. The paraspinal soft tissues are unremarkable. IMPRESSION: 1. Metallic fusion from L3 through S1 which limits the evaluation due to metallic artifact. 2. Suspect new moderate to large right lateral disc herniation at the L2-3 level resulting in severe compromise of the right lateral recess and moderate compromise of the right L2-3 neuroforamen. 3. No spinal stenosis. 4. Stable mild posterior disc protrusions at the T11/T12 level and T12/L1 resulting in mild mass effe ct on the ventral aspect of thecal sac. [facility], , 11/02/2024 4:43 PM
[2024-11-02 16:51] LABS: Basophils % (A) 0 %; Eosinophils # (A) 0.1 k/uL (0-0.7); Eosinophils % (A) 1 %; HCT 41.8 % (34.0-46.0); Hypochromasia Moderate; Lymphocytes # (A) 1.6 k/uL (1.0-4.8); Lymphocytes % (A) 13 %; MCH 30.8 pg (25.0-35.0); MCHC 31.2 g/dL (31.0-37.0); MCV 98.8 fL (80.0-100.0); Mean Platelet Volume 8.9; Monocytes # (A) 0.6 k/uL (0-1.0); Monocytes % (A) 5 %; Neutrophils # (A) 9.9 k/uL (1.3-7.7); Neutrophils % (A) 81 %; RBC 4.23 m/uL (3.80-5.40); RDW 13.8 % (11.5-15.5); WBC 12.3 k/uL (3.8-10.6)
[2024-11-02 16:52] LABS: Platelet Count 144 k/uL (150-450)
[2024-11-02 17:51] LABS: Glucose,Whole Blood 437 mg/dL (70-110)
[2024-11-02 20:26] LABS: Glucose,Whole Blood 475 mg/dL (70-110)
[2024-11-02] MEDS ORDERED: INSULIN GLARGINE (LANTUS) 100 UNIT/ML SYR SQ SCH ×3 (21:00)
[2024-11-02 21:31] LABS: African American GFR (CKD) >90 (>60 ml/min/1.73 sqM); Anion Gap 12 mmol/L; Blood Urea Nitrogen 17 mg/dL (7-17); Calcium 9.8 mg/dL (8.4-10.2); Carbon Dioxide 20 mmol/L (22-30); Chloride 96 mmol/L (98-107); Glucose 417 mg/dL (74-99); Non-African American GFR(CKD) >90 (>60 ml/min/1.73 sqM); Sodium 128 mmol/L (137-145)
[2024-11-02 21:37] LABS: Potassium 6.2 mmol/L (3.5-5.1)
[2024-11-02] MEDS: INSULIN GLARGINE (LANTUS) 100 UNIT/ML SYR SQ SCH (22:43)
[2024-11-02] MEDS: oxyCODONE-APAP 7.5-325MG 1 EACH TAB PO PRN (23:01)
[2024-11-03 00:03] LABS: African American GFR (CKD) >90 (>60 ml/min/1.73 sqM); Anion Gap 12 mmol/L; Blood Urea Nitrogen 17 mg/dL (7-17); Calcium 9.9 mg/dL (8.4-10.2); Carbon Dioxide 19 mmol/L (22-30); Chloride 95 mmol/L (98-107); Glucose 329 mg/dL (74-99); Non-African American GFR(CKD) >90 (>60 ml/min/1.73 sqM); Sodium 126 mmol/L (137-145)
[2024-11-03 00:05] LABS: Potassium 5.3 mmol/L (3.5-5.1)
[2024-11-03] MEDS: SODIUM CHLORIDE 0.9% 1,000 ML IV SCH (00:25)
[2024-11-03 01:53] VITALS: TEMP 98.1
[2024-11-03 05:29] LABS: Glucose,Whole Blood 353 mg/dL (70-110)
--- NOTE | 2024-11-03 05:44 | P.PN ---
Subjective Progress Note Date: 11/02/24 This is a 43-year-old female who was recently admitted with severe back pain being evaluated with orthopedics following. Patient is continued on steroids along with pain management and continues to report significant pain. Patient is scheduled to undergo MRI today which is pending. Will await report and discuss further with orthopedics regarding treatment plan moving forward. Per nursing staff patient is refusing multiple interventions including has been refusing blood draws. Blood sugars are uncontrolled and extremely elevated secondary to noncompliance as well as steroid effect. Insulins adjusted and will increase long-acting insulin at night as well. Patient is afebrile and per nursing staff has been up and walking independently to the bathroom and back. Review of systems: Constitutional: reports of fatigue and not sleeping well, no fever, or chills Cardiovascular: No reports of chest pain or palpitations Respiratory: No reports of shortness of breath or cough GI: No reports of nausea, no reports of vomiting, no diarrhea : No reports of dysuria or retention Neurovascular: reports of generalized weakness, continued lower back pain All medications have been reviewed PHYSICAL EXAMINATION: GENERAL: The patient is alert and oriented x4, Well developed, appears older t campos stated age, morbidly obese HEENT: Pupils are round and equally reacting to light. EOMI. no scleral icterus. No conjunctival pallor. Normocephalic, atraumatic. No pharyngeal erythema. No thyromegaly. CARDIOVASCULAR: S1 and S2 muffled PULMONARY: diminished breath sounds bilaterally with some faint expiratory wheezing and coarse rhonchi noted. ABDOMEN: soft. Nontender on exam. obese. non-distended, normoactive bowel sounds. No palpable organomegaly. MUSCULOSKELETAL: No joint swelling or deformity. EXTREMITIES: No cyanosis, clubbing, or pedal edema. NEUROLOGICAL: Gross neurological examination did not reveal any focal deficits. Diffuse weakness SKIN: No rashes. Assessment: Severe back pain with possible degenerative joint disease Diabetes mellitus, type II, uncontrolled with hyperglycemia, steroid effect Hypertension Right knee pain, negative for fractures with possible DJD History of asthma Anxiety history Morbid obesity with a BMI of 42.0 History of C5-C7 ACDF and L3-S1 posterior lateral interbody fusion GI prophylaxis DVT prophylaxis Full code Plan: Recommend to continue with current medications and management per orthopedic services. Patient is continued on pain management along with steroids and is scheduled for an MRI which is pending today Patient reports to having some cough and feeling sick with wheezing, will add breathing treatments and check for Cepheid Continue with insulins and will adjust and Accu-Cheks before meals and at bedtime as patient's blood sugars are elevated. Patient is noncompliant with diet and also steroid effect Recommend repeat labs in a.m. and patient has been refusing blood draws Encouraged increase activity as tolerated Will await orthopedic recommendations post MRI Recommend pain management outpatient follow-up Due to multiple complex medical issues, overall prognosis is guarded The impression and plan of care has been dictated by Monique Mansfield, nurse practitioner as directed. Dr. Filiberto MD I have performed a history and examination and MDM of this patient, discussed the same with the dictator, and agree with the dictator's assessment and plan as written ,documented as a scribe. Based on total visit time, I have performed more than 50% of the visit. Any additional findings or plans will be noted. Objective - Vital Signs Vital signs: Vital Signs Temp 98.0 F 11/02/24 08:00 Pulse 61 11/02/24 08:00 Resp 18 11/02/24 08:00 BP 133/67 11/02/24 08:00 Pulse Ox 100 11/02/24 08:00 FiO2 Intake & Output 11/01/24 11/02/24 11/02/24 18:59 06:59 18:59 Intake Total 236 838 236 Output Total 1 Balance 235 838 236 Intake: Oral 236 838 236 Output: Urine 1 Other: Voiding Method Toilet Toilet Toilet # Voids 2 3 - Labs CBC & Chem 7: 11/02/24 16:20 11/02/24 23:37 Labs: Abnormal Lab Results - Last 24 Hours (Table) 11/01/24 11/01/24 11/02/24 Range/Units 17:29 18:50 05:22 POC Glucose (mg/dL) 388 H 413 H 338 H (70-110) mg/dL 11/02/24 Range/Units 12:36 POC Glucose (mg/dL) 325 H (70-110) mg/dL
[2024-11-03] MEDS: SENNOSIDES-DOCUSATE SODIUM 1 EACH TAB PO PRN (06:28)
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
[2024-11-03 07:56] LABS: Glucose,Whole Blood 354 mg/dL (70-110)
[2024-11-03 08:35] VITALS: BP 159/62; PULSE 79; RESP 18
[2024-11-03 12:05] LABS: Glucose,Whole Blood 317 mg/dL (70-110)
--- NOTE | 2024-11-03 14:16 | P.PN ---
Progress Note - Text Progress Note Date: 11/03/24 Dr. Graf was available to review patient's lumbar spine MRI. Stable hardware from her previous surgery from L3-S1. He did note some adjacent segment disease involving the L2-L3 region from the CT scan, MRI does demonstrate a right-sided disc herniation in that area. I was able to discuss patient's MRI and options for treatment today at bedside. Nursing notes were reviewed, patient continues to be very upset with her care during her hospital stay. She was quite upset while was in the room discussing her treatment options today. Patient complains that her left lower extremity has been numb since her last surgery which was the L3-S1 posterior lateral decompression and fusion. She states now she has been getting pain in the right lower extremity which was not noted when she presented to this hospital most recently. She continues to ambulate throughout the room with no assistive devices. She denies any loss of bowel or bladder function, she denies any numbness or tingling to the genital or perineal region. We discussed the possibility of following up with pain management to consider an CRISTIAN at the L2-L3 region for the disc herniation on the right side, patient states that she had been evaluated by a pain management doctor and also a neurosurgeon out of the [place] system and stated that she must do physical therapy prior to considering the injections and she refuses to do physical therapy. I tried to explain to her that we can discuss this further in the outp atient setting with Dr. Graf or consider a consult to our pain management group in the hospital during this hospital stay. She again became very upset with her options for treatment and continued to say negative things about the hospital and staff that has been taking care of her. Patient is demanding to be discharged at this time. Recommending patient remain on her current medications and plan for follow-up in the outpatient setting for discussion of further treatment.
[2024-11-03] MEDS ORDERED: INSULIN GLARGINE (LANTUS) 100 UNIT/ML SYR SQ SCH (21:00)
[2024-11-06] MEDS ORDERED: CHOLECALCIFEROL 125 MCG (5000 IU) TABLET PO SCH (09:00)
== END 2024-11-03 14:20 | disposition home or self-care (01) | DRG 347 ==
LOC: EC 19:28 → 6NMEDSUR 22:02 → OBSVTOIN 22:03 → 6NMEDSUR 22:57
PROVIDERS: ADMIT Internal Medicine; ATTEND Internal Medicine
PROC: 05HF33Z Insertion of Infusion Device into Left Cephalic Vein, Percutaneous Approach (ICD-10-PCS; principal; 2024-11-02 17:30)
DX: M54.50 Low back pain, unspecified (principal); E11.43 Type 2 diabetes mellitus with diabetic autonomic (poly)neuropathy; E11.65 Type 2 diabetes mellitus with hyperglycemia; E66.01 Morbid (severe) obesity due to excess calories; Z68.41 Body mass index [BMI] 40.0-44.9, adult; E78.5 Hyperlipidemia, unspecified; F31.9 Bipolar disorder, unspecified; F41.9 Anxiety disorder, unspecified; G89.29 Other chronic pain; I10 Essential (primary) hypertension; J44.89 Other specified chronic obstructive pulmonary disease; K21.9 Gastro-esophageal reflux disease without esophagitis; G43.909 Migraine, unspecified, not intractable, without status migrainosus; M43.6 Torticollis; N18.1 Chronic kidney disease, stage 1; E11.22 Type 2 diabetes mellitus with diabetic chronic kidney disease; K31.84 Gastroparesis; G47.30 Sleep apnea, unspecified; I83.90 Asymptomatic varicose veins of unspecified lower extremity; M06.9 Rheumatoid arthritis, unspecified; V89.2XXS Person injured in unspecified motor-vehicle accident, traffic, sequela; M19.90 Unspecified osteoarthritis, unspecified site; K58.9 Irritable bowel syndrome, unspecified; R29.6 Repeated falls; M54.10 Radiculopathy, site unspecified; M79.7 Fibromyalgia; Z79.1 Long term (current) use of non-steroidal anti-inflammatories (NSAID); Z79.4 Long term (current) use of insulin; Z79.899 Other long term (current) drug therapy; Z85.41 Personal history of malignant neoplasm of cervix uteri; Z87.891 Personal history of nicotine dependence; Z91.199 Patient's noncompliance with other medical treatment and regimen due to unspecified reason; Z98.1 Arthrodesis status; Z87.01 Personal history of pneumonia (recurrent)
CPT/HCPCS: 36415; 71045; 71046; 72131; 72158; 80048; 80053; 83036; 83735; 84484; 84550; 85025; 85610; 85652; 85730; 86140; 93005; 94640; 96374; 96375; 96376; 99285